=== PATIENT | female | born 1955 | race Two or more races ===

== ENCOUNTER 2021-08-03 11:03 | Outpatient (CLI) | payer OTHER, SELFPAY ==
--- NOTE | 2021-08-03 11:18 | XR_ITS ---
WS: [id number] Exam: XR hip RT 2-3V wo/w pel* [id number] Date/Time of Exam: 08/03/2021 11:28 AM Reason For Exam: PAIN IN R HIP No fracture or dislocation. Mild narrowing of the joint compartment. Normal soft tissues. XR/XR hip RT 2-3V wo/w pel* [id number] IMPRESSION: 1. Mild osteoarthritis. No fracture or dislocation.
--- NOTE | 2021-08-03 11:18 | XR_ITS ---
WS: [id number] Exam: XR lumbar spine 6V w f/e [id number] Date/Time of Exam: 08/03/2021 11:28 AM Reason For Exam: VERTEBROGENIC LOW BACK PAIN No comparisons. Compression fracture of the L1 with about 40% loss of vertebral height anteriorly. Mild posterior dis placement of about 5 mm. No other fractures. Mild degenerative anterolisthesis of L4 on L5 and L3 on L4. Facet arthropathy at all levels. Posterior osteophytes at the L to 3 disc level that might cause some spinal canal stenosis. No significant change during flexion or extension. Mild levoscoliosis. Mo derate disc degeneration at L2-3. Degenerative vacuum disc at L5-S1. XR/XR lumbar spine 6V w f/e [id number] IMPRESSION: 1. Old compression fracture of L1 with about 40% loss of vertebral height anter iorly and mild posterior displacement. 2. Mild degenerative anterolisthesis of L4 on L5 and L3 on L4. 3. Posterior osteophytes at the L2-3 disc level that might cause some spinal ca nal stenosis. 4. Facet arthropathy at all levels. Moderately advanced degenerative disc singletary es at L2-3 and L5-S1. No acute fracture. No significant change in alignment dur ing flexion or extension.
== END 2021-08-03 11:04 | disposition home or self-care (01) ==
LOC: RAD 11:08
PROVIDERS: PCP Family Medicine; Visit Provider Family Medicine
DX: M25.551 Pain in right hip (principal); M16.11 Unilateral primary osteoarthritis, right hip; M54.50 Low back pain, unspecified; M25.78 Osteophyte, vertebrae
CPT/HCPCS: 72114; 73502

== ENCOUNTER → 2021-08-21 14:04 | Outpatient (BNVA) | payer OTHER, SELFPAY | PROVIDERS: PCP Family Medicine; Referring Provider Family Medicine; Visit Provider Orthopaedic Surgery | DX: M25.561 Pain in right knee (principal) | CPT/HCPCS: 73560; 73565 ==

== ENCOUNTER 2021-08-29 09:32 | Outpatient (RCR) | payer MEDICARE, SELFPAY | END 2021-09-09 23:59 | disposition home or self-care (01) | LOC: SPT 09:32 | PROVIDERS: PCP Family Medicine; Referring Provider Orthopaedic Surgery; Visit Provider Orthopaedic Surgery | DX: Z47.89 Encounter for other orthopedic aftercare (principal) | CPT/HCPCS: 97161 ==

== ENCOUNTER 2021-09-18 13:37 | Outpatient (CLI) | payer MEDICARE, SELFPAY ==
--- NOTE | 2021-09-18 14:10 | PFTS_ITS ---
Date of Study:09/18/21 Date of Dictation: 09/24/2021 MECHANICS: Postbronchodilator forced vital capacity (FVC) is reduced. Postbronchodilator forced expiratory volume in one second (FEV1) is moderately reduced. FEV1/FVC is normal. There is no significant response to bronchodilator.. FLOW VOLUME LOOP: Normal. LUNG VOLUMES: Not measured DIFFUSING CAPACITY FOR CARBON MONOXIDE: Not measured . INTERPRETATION: The postbronchodilator spirometry showed moderate restriction.? There is no significant postbronchodilator response.? Lung volumes not measured.? Gas transfer not measured.? Clinical correlation recommended. MTDD
== END 2021-09-18 13:38 | disposition home or self-care (01) ==
LOC: RT 13:38
PROVIDERS: PCP Family Medicine; Visit Provider Family Medicine
DX: R06.09 Other forms of dyspnea (principal)
CPT/HCPCS: 94060; J7614

== ENCOUNTER → 2021-10-03 11:35 | Outpatient (BNVA) | payer MEDICARE, SELFPAY | PROVIDERS: PCP Family Medicine; Visit Provider Surgery | DX: Z86.010 Personal history of colon polyps (principal); Z80.0 Family history of malignant neoplasm of digestive organs | CPT/HCPCS: 99203 ==

== ENCOUNTER 2021-10-05 08:23 | Day surgery (SDC) | payer MEDICARE, SELFPAY ==
[2021-10-04 10:35] VITALS: BMI 34.7
--- NOTE | 2021-10-05 08:54 | P.ANESASSM_ITS ---
Pre-Anesthetic Assessment Height/Weight: Height 1.57 m Weight 86.183 kg Preop Diagnosis: History of colon polyps/family history of colon cancer Operation Date: 10/05/21 10:00 Proposed Procedures p Colonoscopy 41879,Z12.11(Not Applicable) - Zachary Cronin MD Familial anesthetic complications: none Was Beta Raúl taken within 24 hours: N/A Was Clonidine taken within 24 hours: N/A Last intake: 10/04/21 Social No alcohol and No tobacco Exam alert, oriented x 3, clear to auscultation bilaterally and regular rate & rhythm Airway Submandibular: within normal limits Cervical ROM: within normal limits (Has pain with full ROM ) Mallampati: Class II Dentition: full Comments: Comments: Front tooth capped Pulmonary Sleep Apnea CV/HEM None reported Unable to ascend flight of stairs d/t knee pain None reported Hepatic None reported GI Colon polyps Metabolic None reported Musc/skel Lower Back Pain and Osteoarthritis/DJD Neuropsych None reported Anesthetic Plan ASA status: 3 (66 year old obese female w/ hx of ROBERTO ) Anesthesia: Anesthesia Evaluation, General and MAC Other: I discussed with the patient risks, goals, and benefits of MAC and general anesthesia. We discussed spectrum of MAC anesthesia including conversion to general as well as possibility of recall of intraoperative stimuli including discomfort/pain. Patient agrees to proceed with MAC. Medications/Allergies Home Medications Medication Instructions Recorded Confirmed Last Taken Type latanoprost 0.005 % eye drops 1 drp ophthalmic (eye) DAILY 06/20/21 10/04/21 Unknown History levothyroxine 100 mcg capsule 100 mcg PO DAILY 06/20/21 10/04/21 Unknown History metformin 500 mg tablet 500 mg PO BID 06/20/21 10/04/21 Unknown History naproxen 500 mg tablet 500 mg PO DAILY PRN Pain 06/20/21 10/04/21 Unknown History Allergies Allergy/AdvReac Type Severity Reaction Status Date / Time ibuprofen [From Motrin] Allergy Mild SOB Verified 10/03/21 16:55 [facility] Anesthesia Family History Father Cancer Colon Other Diabetes Social History Smoking and tobacco status: former smoker Data Anesthesia Cardiac Studies: No Data to Display
[2021-10-05 09:02] VITALS: BP 116/67; PULSE 79; RESP 18; TEMP 36.1; O2SAT 94
[2021-10-05] MEDS: sodium chloride 0.9% 1,000 ML 30 ML IV (09:07)
--- NOTE | 2021-10-05 09:55 | W.PM.OPSUD ---
Surgery/Procedure H&P Update DATE OF PROCEDURE: October 05, 2021 DATE H&P PERFORMED: 10/03/21 H&P UPDATE INFORMATION: I have reviewed H&P completed within last 30 days, I have examined patient prior to procedure and No changes to prior documentation PREOP DIAGNOSIS: History of colon polyps/family history of colon cancer PRIMARY INDICATION FOR PROCEDURE: The same PLANNED PROCEDURE: Operation Date: 10/05/21 10:00 Proposed Procedures p Colonoscopy 61769,Z12.11(Not Applicable) - Zachary Cronin MD
[2021-10-05 10:15] VITALS: BP 110/63; PULSE 74; RESP 16; TEMP 36.1; O2SAT 97
--- NOTE | 2021-10-05 10:19 | ANE.PACU2 ---
Inpatient post-anesthesia follow up: Airway intact: Yes Vital signs: Temperature 97 F Pulse Rate 74 Respiratory Rate 16 Blood Pressure 110/63 Pulse Oximetry 97 Oxygen Delivery Me thod Room Air Oxygen Flow Rate Fraction of Inspir ed Oxygen Hydration adequate: Yes Nausea and vomiting: No Pain level: 1 Mental status: Baseline
[2021-10-05 10:43] VITALS: BP 108/70; PULSE 76; RESP 18; O2SAT 96
== END 2021-10-05 11:01 | disposition home or self-care (01) ==
PROVIDERS: PCP Family Medicine; Visit Provider Surgery
PROC: 0DJD8ZZ Inspection of Lower Intestinal Tract, Via Natural or Artificial Opening Endoscopic (ICD-10-PCS; CPT 45378; principal; 2021-10-05 10:00)
DX: Z12.11 Encounter for screening for malignant neoplasm of colon (principal); K63.5 Polyp of colon; Z80.0 Family history of malignant neoplasm of digestive organs
CPT/HCPCS: 45385; 88305; J2704; J7030

== ENCOUNTER → 2021-10-09 11:30 | Outpatient (BNVA) | payer MEDICARE, SELFPAY | PROVIDERS: PCP Family Medicine; Visit Provider Orthopaedic Surgery | DX: M25.561 Pain in right knee (principal) | CPT/HCPCS: 73560; 73565; 99212 ==

== ENCOUNTER 2021-10-11 06:00 | Outpatient (RCR) | payer MEDICARE, SELFPAY | END 2021-11-09 23:59 | disposition home or self-care (01) | LOC: SPT 06:00 | PROVIDERS: PCP Family Medicine; Referring Provider Orthopaedic Surgery; Visit Provider Orthopaedic Surgery | DX: Z47.89 Encounter for other orthopedic aftercare (principal); M24.661 Ankylosis, right knee | CPT/HCPCS: 97110 ==

== ENCOUNTER → 2021-10-22 15:06 | Outpatient (BNVA) | payer MEDICARE, SELFPAY | PROVIDERS: PCP Family Medicine; Visit Provider Surgery | DX: Z09 Encounter for follow-up examination after completed treatment for conditions other than malignant neoplasm (principal); K57.31 Diverticulosis of large intestine without perforation or abscess with bleeding | CPT/HCPCS: 99212 ==

== ENCOUNTER 2021-11-12 08:52 | Outpatient (RCR) | payer MEDICARE, SELFPAY | END 2021-12-10 23:59 | disposition home or self-care (01) | LOC: SPT 08:52 | PROVIDERS: PCP Family Medicine; Referring Provider Orthopaedic Surgery; Visit Provider Orthopaedic Surgery | DX: Z96.651 Presence of right artificial knee joint (principal) | CPT/HCPCS: 97110 ==

== ENCOUNTER 2021-12-03 10:58 | Outpatient (CLI) | payer MEDICARE, SELFPAY ==
--- NOTE | 2021-12-03 11:56 | XR_ITS ---
WS: [id number] Exam: XR chest 2V* [id number] Date/Time of Exam: 12/03/2021 11:56 AM Reason For Exam: DYSPNEA ON EXERTION No priors. The lungs are fully expanded. No infiltrates or pleural effusions are seen. There is elevation the ri ght diaphragm. Cardiomediastinal silhouette is otherwise unremarkable. Bony structures are intact. XR/XR chest 2V* [id number] IMPRESSION: 1. Elevated right diaphragm. 2. No acute pulmonary infiltrate or other significant finding.
== END 2021-12-03 10:59 | disposition home or self-care (01) ==
LOC: RAD 11:05
PROVIDERS: PCP Family Medicine; Visit Provider Family Medicine
DX: R06.09 Other forms of dyspnea (principal)
CPT/HCPCS: 71046

== ENCOUNTER 2021-12-11 06:00 | Outpatient (RCR) | payer MEDICARE, SELFPAY | END 2022-01-09 23:59 | disposition home or self-care (01) | LOC: SPT 06:00 | PROVIDERS: PCP Family Medicine; Visit Provider Orthopaedic Surgery | DX: Z96.651 Presence of right artificial knee joint (principal) | CPT/HCPCS: 97110 ==

== ENCOUNTER 2022-01-10 06:00 | Outpatient (RCR) | payer MEDICARE, SELFPAY | END 2022-02-09 23:59 | disposition home or self-care (01) | LOC: SPT 06:00 | PROVIDERS: PCP Family Medicine; Visit Provider Orthopaedic Surgery | DX: Z47.89 Encounter for other orthopedic aftercare (principal) | CPT/HCPCS: 97110 ==

== ENCOUNTER 2022-03-13 06:00 | Outpatient (RCR) | payer MEDICARE, SELFPAY | END 2022-04-09 23:59 | disposition home or self-care (01) | LOC: SPT 06:00 | PROVIDERS: PCP Family Medicine; Visit Provider Family Medicine Adult Medicine | DX: M24.561 Contracture, right knee (principal) | CPT/HCPCS: 97110; 97161; 97530 ==

== ENCOUNTER 2022-04-10 12:40 | Outpatient (RCR) | payer MEDICARE, SELFPAY | END 2022-05-10 23:59 | disposition home or self-care (01) | LOC: SPT 12:40 | PROVIDERS: PCP Family Medicine; Visit Provider Family Medicine Adult Medicine | DX: M24.561 Contracture, right knee (principal) | CPT/HCPCS: 97110; 97530 ==

== ENCOUNTER 2022-05-11 06:00 | Outpatient (RCR) | payer MEDICARE, SELFPAY | END 2022-06-09 23:59 | disposition home or self-care (01) | LOC: SPT 06:00 | PROVIDERS: PCP Family Medicine Adult Medicine; Visit Provider Family Medicine Adult Medicine | DX: M24.561 Contracture, right knee (principal) | CPT/HCPCS: 97110; 97530 ==

== ENCOUNTER → 2022-05-22 07:55 | Outpatient (BNVA) | payer MEDICARE, SELFPAY | PROVIDERS: PCP Family Medicine Adult Medicine; Visit Provider Family Medicine Adult Medicine | DX: E11.9 Type 2 diabetes mellitus without complications (principal); I10 Essential (primary) hypertension; E78.00 Pure hypercholesterolemia, unspecified | CPT/HCPCS: 80053; 80061; 83036; 84443 ==

== ENCOUNTER 2022-06-03 14:39 | Outpatient (CLI) | payer MEDICARE, SELFPAY ==
--- NOTE | 2022-06-03 15:00 | MM_ITS ---
WS: [id number] BILATERAL 3D TOMOSYNTHESIS DIGITAL SCREENING MAMMOGRAPHY WITH CAD CLINICAL INFORMATION: annual HISTORY: Screening mammogram. No current complaints. COMPARISON: 2021 TECHNIQUE: Bilateral CC and MLO views. FINDINGS: Scattered fibroglandular densities bilaterally. No suspicious focal mass, asymmetry, calcifications, or architectural distortion. No evidence of malignancy. Punctate and lucent centered calcifications. MM/[place] [id number] IMPRESSION: BI-RADS: 2-Benign FOLLOW UP: 1 Year Follow-up Recommend return to annual screening mammography.
== END 2022-06-03 14:40 | disposition home or self-care (01) ==
LOC: RAD 14:42
PROVIDERS: PCP Family Medicine Adult Medicine; Visit Provider Family Medicine Adult Medicine
DX: Z12.31 Encounter for screening mammogram for malignant neoplasm of breast (principal)
CPT/HCPCS: 77063; 77067

== ENCOUNTER → 2022-06-05 13:31 | Outpatient (BNVA) | payer MEDICARE, SELFPAY | PROVIDERS: PCP Family Medicine Adult Medicine; Visit Provider Nurse Practitioner Family | DX: M25.569 Pain in unspecified knee (principal) | CPT/HCPCS: 73560; 73565; 99213 ==

== ENCOUNTER → 2022-06-20 17:13 | Outpatient (BNVA) | payer MEDICARE, SELFPAY | PROVIDERS: PCP Family Medicine Adult Medicine; Visit Provider Nurse Practitioner Family | DX: R68.83 Chills (without fever) (principal) | CPT/HCPCS: 87077; 87086; 87184 ==

== ENCOUNTER 2022-06-20 22:59 | Inpatient (IN) | payer MEDICARE, SELFPAY ==
--- NOTE | 2022-06-20 23:03 | XRR_ITS ---
PROCEDURE INFORMATION: Exam: XR Chest Exam date and time: 06/20/2022 11:19 PM Age: 67 years old Clinical indication: Shortness of breath; Additional info: SOB TECHNIQUE: Imaging protocol: Radiologic exam of the chest. Views: 1 view. COMPARISON: CR XR chest 2V* [id number] 12/03/2021 11:59 AM FINDINGS: Lungs: There is stable prominence of the pulmonary compared with 12/03/2021. Strandy opacities are seen in the lower hemithoraces most probably representing atelectasis. There are some increased interstitial opacities present possibly representing a pulmonary fibrosis although an interstitial pneumonitis cannot be excluded. Pleural spaces: Unremarkable. No pleural effusion. No pneumothorax. Heart/Mediastinum: Unremarkable. No cardiomegaly. Bones/joints: Unremarkable. XR/XR chest 1V portable [id number] IMPRESSION: 1. Stable mild prominence of the pulmonary possibly representing lymph nodes. 2. Strandy opacities in the lower hemithoraces most probably represents atelectasis although infiltrates and pneumonia cannot be entirely excluded. 3. Increased interstitial opacities within the hemithoraces may represent pulmonary fibrosis although an interstitial pneumonitis cannot be excluded.
--- NOTE | 2022-06-20 23:03 | ECG_ITS ---
[facility] Test Date: 2022-06-20 Pat Name: Jenny Lopez Department: Room: Gender: Female [employer] Worker: : 1955 Requested By: Gio Brandt Order Number: [id number] Katerin MD: Alek Peres M.D. Measurements Intervals [place] Rate: 119 P: 4 MO: 132 QRS: -3 QRSD: 94 T: 54 QT: 428 QTc: 603 Interpretive Statements SINUS TACHYCARDIA POSSIBLE ANTERIOR MYOCARDIAL INFARCTION , PROBABLY OLD [30 ms Q WAVE IN V3/V4, OR R < 0.2 mV IN V4] No previous ECG available for comparison Electronically Signed On 06-21-2022 11:58:27 CDT by Alek Peres M.D. [id number]
[2022-06-20 23:14] VITALS: PULSE 122; RESP 20; TEMP 37.2; O2SAT 91; BMI 34.2
--- NOTE | 2022-06-20 23:30 | W.ED.SOB ---
HPI - SOB/Dyspnea General: Chief Complaint: Shortness of Breath/Dyspnea Stated Complaint: Sob, chills, vomiting Time Seen by Provider: 06/20/22 23:03 Source: patient Mode of arrival: ambulatory Limitations: no limitations History of Present Illness: HPI Narrative: 67-year-old female states over last 2 days she has not been feeling well states she has been having a fever along with chills body aches and some flank pain she is seen in urgent care today diagnosed with a kidney infection she states she tried taking antibiotics and started vomiting this evening and felt much worse had some mild dyspnea denies any cough denies any worsening proving factors rates her flank pain a 5 out of 10. Associated symptoms: Reports fever(s), nausea and vomiting; Deny abdominal pain or chest pain Review of Systems Const: Reports: fever(s), chills, body aches and change in appetite Eyes: Denies: eye discomfort ENMT: Denies: throat pain or dental pain Card: Denies: chest pain Resp: Denies: dyspnea GI: Reports: nausea and vomiting; Denies: abdominal pain or diarrhea : Reports: flank pain and dysuria Musc: Denies: neck pain or back pain Skin/Breast: Denies: rash Neuro: Denies: headache(s) PFSH ED PFSH: Medical History Acute lumbar myofascial strain Contracture of right knee Diabetes mellitus Essential hypertension Family history of colon cancer in father Glaucoma High cholesterol History of calculus of gallbladder History of colon polyps Colonoscopy on 09/18/[address] Cronin with polyps removed History of COVID-19 2019 Hypothyroidism Obesity (BMI 30-39.9) Restrictive lung disease secondary to obesity Trigger finger (acquired) Well adult health check Surgical History H/O knee surgery H/O tubal ligation History of carpal tunnel surgery History of laparoscopic cholecystectomy Family History Father Cancer Colon Other Diabetes Social History Smoking and tobacco status: former smoker Female Reproductive History: Para: 4 Spontaneous abortions: No Physical Exam Const: COMMON NORMALS: patient oriented x3 GENERAL APPEARANCE: ill appearing HENMT: COMMON NORMALS: normocephalic and atraumatic HEAD & SCALP: normocephalic and atraumatic Eye: COMMON NORMALS: conjunctivae normal CONJUNCTIVA: Yes conjunctivae normal Neck/C-Spine: COMMON NORMALS: full ROM and supple Chest: COMMONS NORMALS: normal inspection of the chest and normal palpation of entire chest wall Resp: COMMON NORMALS: normal respiratory effort, No retractions, No use of accessory muscles and clear to auscultation bilaterally AUSCULTATION: clear to auscultation bilaterally Cardio: COMMON NORMALS: regular rhythm and No murmurs present (Cardio) RATE: tachycardic RHYTHM: regular rhythm GI: COMMON NORMALS: Normal to inspection, nondistended, normoactive bowel sounds present, Soft to palpation, non-tender and no masses PALPATION: Yes Soft to palpation Extremity: COMMON NORMALS: normal to inspection and full ROM Neuro: COMMON NORMALS: patient oriented x3, moves all extremities and no focal motor deficits Psych: COMMON NORMALS: mental status grossly normal, Normal thought process present and cooperative THOUGHT PROCESS: Normal thought process present Skin: COMMON NORMALS: no rashes or lesions noted and no wounds GENERAL SKIN EXAM: no rashes or lesions noted Course Vital Signs: Vital signs: Vital Signs Temperature 99.0 F 06/20/22 23:14 Pulse Rate 107 H 06/21/22 00:24 Respiratory Rate 32 H 06/21/22 00:24 Blood Pressure 107/46 06/21/22 00:24 Pulse Oximetry 95 06/21/22 00:24 Oxygen Delivery Me thod Nasal Cannula 06/21/22 00:24 MDM - SOB/Dyspnea Medical Decision Making Patient presents here with likely infected kidney stone she does have an elevated lactate did give her the sepsis bolus her blood pressures been stable at 106/50 currently did give her IV antibiotics as well as spoke to Dr. Gill he was taken to the OR for stone removal also spoke to the hospitalist who is admitting. Medical Records I reviewed the patient's medical records. Lab Data I reviewed the patient's lab results. 06/20/22 23:32 06/20/22 23:32 Labs/Radiology: Radiology Impressions Chest X-Ray 06/20/22 23:03 IMPRESSION: 1. Stable mild prominence of the pulmonary possibly representing lymph nodes. 2. Strandy opacities in the lower hemithoraces most probably represents atelectasis although infiltrates and pneumonia cannot be entirely excluded. 3. Increased interstitial opacities within the hemithoraces may represent pulmonary fibrosis although an interstitial pneumonitis cannot be excluded. Abdomen/Pelvis CT 06/20/22 23:32 IMPRESSION: 1. Partially obstructing 9 mm calculus at the level of the right ureteropelvic junction. 2. Simple cyst on the posterior aspect right kidney measuring 1.8 cm. No further workup needed. 3. Mild diverticulosis of the sigmoid colon 4. Normal appendix 5. Small bladder diverticulum seen on the right posteriorly measuring 11 mm. COMMENTS: Consistent with the [employer]'s Incidental Findings Committee white paper (J Am David Radiol 2018): Any incidental renal lesion less than 1 cm or classified as too small to characterize, or any incidental cystic renal lesion characterized as simple-appearing, is likely benign. No follow-up imaging is recommended for these lesions per consensus recommendations based on imaging criteria. Laboratory Results WBC 3.3 10^3/uL (4.0-10.0) L 06/20/22 23:32 RBC 4.67 10^6/uL (4.1-5.3) 06/20/22 23:32 Hgb 14.0 g/dL (11.5-15.3) 06/20/22 23: Hct 43.1 % (37.0-47.0) 06/20/22 23:32 MCV 92.3 fl (81-99) 06/20/22 23: MCH 30.0 pg (28.0-34.0) 06/20/22 23: MCHC 32.5 g/dL (30.0-36.0) 06/20/22 23: RDW 12.8 % (12.1-15.1) 06/20/22 23: Plt Count 169 10^3/cmm (130-400) 06/20/22 23: MPV 9.8 fL (7.4-10.4) 06/20/22 23:32 Neut % (Auto) 76.0 % 06/20/22 23: Lymph % (Auto) 21.6 % 06/20/22 23: Pepin % (Auto) 0.9 % 06/20/22 23: Eos % (Auto) 0.6 % 06/20/22 23:32 Baso % (Auto) 0.6 % 06/20/22 23:32 Neut # (Auto) 2.54 10^3/uL (1.8-7.7) 06/20/22 23:32 Lymph # (Auto) 0.7 10^3/uL (0.8-4.8) L 06/20/22 23:32 Pepin # (Auto) 0.0 10^3/uL (0.2-0.9) L 06/20/22 23:32 Eos # (Auto) 0.0 10^3/uL (0.0-0.8) 06/20/22 23: Baso # (Auto) 0.0 10^3/uL (0.0-0.1) 06/20/22 23: Nucleated RBC % (auto) 0 % 06/20/22: Nucleated RBCs # 0.0 /100WBC 06/20/22 23: PT 14.50 SECONDS (12.1-14.9) 06/20/22 23:32 INR 1.10 (0.8-1.2) 06/20/22 23:32 Sodium 138 mmol/L (136-145) 06/20/22 23:32 Potassium 4.2 mmol/L (3.5-5.1) 06/20/22 23:32 Chloride 102 mmol/L (98-107) 06/20/22 23:32 Carbon Dioxide 20 mmol/L (22-29) L 06/20/22 23:32 Anion Gap 20.2 (5-19) H 06/20/22 23:32 BUN 20 mg/dL (8-23) 06/20/22 23:32 Creatinine 1.1 mg/dL (0.5-0.9) H 06/20/22 23:32 GFR Calculation 49.5 mL/min (90-130) L 06/20/22 23:32 Glucose 146 mg/dL (65-115) H 06/20/22 23:32 Calculated Osmolality 291 mOsm/kg (285-295) 06/20/22 23:32 Lactic Acid 5.6 mmol/L (0.5-2.2) H* 06/20/22 23:32 Calcium 10.2 mg/dL (8.5-10.5) 06/20/22 23:32 Total Bilirubin 0.8 mg/dL (0.15-1.2) 06/20/22 23:32 AST 30 U/L (0-32) 06/20/22 23:32 ALT 16 U/L (0-33) 06/20/22 23:32 Alkaline Phosphatase 132 U/L (35-105) H 06/20/22 23:32 NT-Pro-B Natriuret Pep 548 pg/mL (0-125) H 06/20/22 23:32 Total Protein 7.2 g/dL (6.6-8.7) 06/20/22 23:32 Albumin 3.7 g/dL (3.5-5.2) 06/20/22 23:32 Globulin 3.5 g/dL (1.3-4.6) 06/20/22 23:32 SARS-CoV-2 Ag (Rapid) Negative (Negative) 06/20/22 23:23 EKG Data EKG 1: I personally reviewed and interpreted this EKG as follows: EKG Interpretation Date: 06/20/22 EKG interpretation time: 23:16 Interpretation: sinus tach hr [address] or t wave abnormalities qrs 94 qtc 499 Critical Care Time Critical Care Time: Critical Care Time: Yes Total Critical Care Time: 45 Attestation: The high probability of a clinically significant, sudden or life threatening deterioration of the patient's gu system(s) required my full and direct attention, intervention and personal management. The critical care time is as shown. This time is in addition to time spent performing any reported procedures but includes the following: [x] Data and vital sign review and interpretation [x] Patient assessment, examination and intervention [x] Documentation [x] Medication orders and management Discharge Plan Discharge Patient Disposition: Admitted As Inpatient Clinical Impression: Acute cystitis, Kidney stone, Sepsis Condition: Stable Prescriptions: No Action ciprofloxacin HCl 500 mg tablet 500 mg PO Q12H 7 Days Qty: 14 0RF naproxen 500 mg tablet 500 mg PO DAILY PRN (Reason: Pain) Hold Instructions: Resume on 10/09/21. latanoprost 0.005 % drops 1 drp ophthalmic (eye) DAILY levothyroxine 100 mcg capsule 100 mcg PO DAILY Qty: 30 5RF (DME) One touch mini test strips See Rx Instructions .Route .MEDSUPPLY Qty: 100 5RF Rx Instructions: As directed metformin 500 mg tablet See Rx Instructions PO BID Qty: 60 5RF Rx Instructions: 500 mg in the AM and 1000 mg at night orally twice a day; Referrals: Madhu Felder MD [Primary Care Provider] - Coding Level of Care Code ED Emergency Preparedness Manager for [facility] Butcher
--- NOTE | 2022-06-20 23:32 | CTR_ITS ---
PROCEDURE INFORMATION: Exam: CT Abdomen And Pelvis With Contrast Exam date and time: 06/20/2022 11:56 PM Age: 67 years old Clinical indication: Abdominal pain; Generalized; Prior surgery; Surgery date: 6+ months; Surgery type: Tubal, cholecystectomy; Additional info: Abd pain TECHNIQUE: Imaging protocol: Computed tomography of the abdomen and pelvis with contrast. Radiation optimization: All CT scans at this facility use at least one of these dose optimization techniques: automated exposure control; mA and/or kV adjustment per patient size (includes targeted exams where dose is matched to clinical indication); or iterative reconstruction. Contrast material: OMNI 350; Contrast volume: 75 ml; Contrast route: INTRAVENOUS (IV); REPORTING DATA: Count of CT and Cardiac NM exams in prior 12 months: This patient has received 0 known CTs and 0 known cardiac nuclear medicine studies in the 12 months prior to the current study. COMPARISON: CR XR hip RT 2-3V wo/w pel* [id number] 08/03/2021 11:23 AM RADIATION DOSE METRICS: Total DLP (mGy-cm): 1129.53 FINDINGS: Liver: Normal. No mass. Gallbladder and bile ducts: Status post cholecystectomy. Common duct is mildly prominent measuring 12 mm is midportion tapering to normal caliber within the pancreas. Pancreas: Normal. No ductal dilation. Spleen: Normal. No splenomegaly. Adrenal glands: Normal. No mass. Kidneys and ureters: There is a 1.8 cm hypoattenuation cystic mass seen on the posterior aspect right kidney. There is a mild delayed nephrogram seen on the right. Strandy opacities are seen in the perinephric fascia on right findings possibly representing mild inflammatory changes. There is mild right hydronephrosis present. There is a partially obstructing 9 mm calculus at the level of the right ureteropelvic junction. Stomach and bowel: Diverticula present on the sigmoid colon. Appendix: The appendix is visualized and is normal in configuration. Intraperitoneal space: Unremarkable. No free air. No significant fluid collection. Vasculature: Unremarkable. No abdominal aortic aneurysm. Lymph nodes: Unremarkable. No enlarged lymph nodes. Urinary bladder: There is a small 11 mm bladder diverticulum seen on right posteriorly. Reproductive: Unremarkable as visualized. Bones/joints: Vertebral body hemangioma seen in L4 on right. Soft tissues: There is a tiny umbilical hernia containing fat. CT/CT abdomen pelvis w con* [id number] IMPRESSION: 1. Partially obstructing 9 mm calculus at the level of the right ureteropelvic junction. 2. Simple cyst on the posterior aspect right kidney measuring 1.8 cm. No further workup needed. 3. Mild diverticulosis of the sigmoid colon 4. Normal appendix 5. Small bladder diverticulum seen on the right posteriorly measuring 11 mm. COMMENTS: Consistent with the [employer]'s Incidental Findings Committee white paper (J Am David Radiol 2018): Any incidental renal lesion less than 1 cm or classified as too small to characterize, or any incidental cystic renal lesion characterized as simple-appearing, is likely benign. No follow-up imaging is recommended for these lesions per consensus recommendations based on imaging criteria.
[2022-06-20] MEDS: acetaminophen 500 mg Tablet 1000 MG PO (23:39)
[2022-06-20] MEDS: sodium chloride 0.9% 1,000 ML 999 ML IV (23:39)
[2022-06-20] MEDS: cefTRIAXone 1,000 MG in sodium chloride 0.9% (plus) 50 ML 100 MG IV (23:39)
[2022-06-20] MEDS: ondansetron 2 mg/ML SDV 2 mL 4 MG IVP (23:39)
[2022-06-20 23:44] LABS: Basophils % 0.6 %; Eosinophils % 0.6 %; Hematocrit 43.1 % (37.0-47.0); Lymphocytes # 0.7 10^3/uL (0.8-4.8); Lymphocytes % 21.6 %; Mean Corpuscular HGB Conc 32.5 g/dL (30.0-36.0); Mean Corpuscular Volume 92.3 fl (81-99); Mean Platelet Volume 9.8 fL (7.4-10.4); Monocytes % 0.9 %; Neutrophils # 2.54 10^3/uL (1.8-7.7); Nucleated Red Blood Cells % 0 %; Platelet Count 169 10^3/cmm (130-400); Red Blood Count 4.67 10^6/uL (4.1-5.3); Red Cell Distribution Width 12.8 % (12.1-15.1); White Blood Count 3.3 10^3/uL (4.0-10.0)
[2022-06-20] MEDS: iohexol 350 mg/mL 500 mL Btl (per mL) IV (23:50)
--- NOTE | 2022-06-20 23:55 | PM.CONSULT ---
Providers/Reason For Consult Consulting Physician/Specialty*: Urology/Gill Reason for Consult*: Right obstructive pyelonephritis, large proximally UPJ stone with sepsis Requesting Physician: Dr. Brandt Primary Care Provider: Madhu Felder MD History of Present Illness History of Present Illness Jenny Lopez is a 67 year old female who [facility] with obstructive pyelonephritis secondary to 9 mm right proximal ureteral stone with UTI. Septic. Symptoms included fever, chills, right flank pain, shortness of breath without nausea vomiting or diarrhea. Urinalysis showed grossly infected urine Lactate was 5.6, she was neutropenic at 3.3, creatinine was 1.1 up from a baseline of 0.31-month ago. Recommended we go to the operating room emergently for right ureteral stent placement. I reviewed the procedure in detail, indications for, the rationale for emergency approach. Risk of progression was discussed. Also discussed the possibility of inability to access the kidney from a retrograde fashion requiring transfer for interventional radiology percutaneous nephrostomy tube placement. Considered a low risk but certainly definable. Informed consent was obtained Review of Systems Const: Reports: fever(s), chills, fatigue and malaise Eyes: Denies: change in vision or eye discharge ENMT: Denies: hoarseness Card: Denies: chest pain or palpitations Resp: Reports: dyspnea; Denies: productive cough GI: Denies: abdominal pain : Reports: flank pain; Denies: dysuria or urinary frequency Musc: Denies: joint redness Skin/Breast: Denies: rash or new lesions Neuro: Denies: confusion, behavioral changes or Slurred speech present Psych: Denies: anxiety Endo: Denies: flushing Fransico/Lymph: Denies: easy bruising or easy bleeding All/Imm: Denies: urticaria Medications/Allergies Home Medications Medication Instructions Recorded Confirmed Last Taken Type latanoprost 0.005 % eye drops 1 drp ophthalmic (eye) DAILY 06/20/21 06/20/22 10/04/21 History naproxen 500 mg tablet 500 mg PO DAILY PRN Pain 06/20/21 06/20/22 09/21/21 History levothyroxine 100 mcg capsule 100 mcg PO DAILY thyroid problem 02/19/22 06/20/22 Unknown Rx #30 caps One touch mini test strips #100 ea 03/14/22 06/20/22 Unknown Rx metformin 500 mg tablet See Rx Instructions PO BID #60 tabs 05/23/22 06/20/22 Unknown Rx ciprofloxacin HCl 500 mg tablet 500 mg PO Q12H 7 days #14 tabs 06/20/22 06/20/22 Unknown Rx Allergies Allergy/AdvReac Type Severity Reaction Status Date / Time ibuprofen [From Motrin] Allergy Mild SOB Verified 06/20/22 23:17 Current Medications Generic Name Dose Route Start Last Admin Trade Name Nara PRN Reason Stop Dose Admin Sodium Chloride 1,000 mls @ 999 mls/hr 06/20/22 23:30 06/21/22 00:23 Sodium Chloride 0.9% IV 06/21/22 01:30 999 mls/hr .Q1H1M MERRITT Administration PFSH Acute PFSH: Medical History Acute lumbar myofascial strain Contracture of right knee Diabetes mellitus Essential hypertension Family history of colon cancer in father Glaucoma High cholesterol History of calculus of gallbladder History of colon polyps Colonoscopy on 09/18/[address] Cronin with polyps removed History of COVID-2019 Hypothyroidism Obesity (BMI 30-39.9) Restrictive lung disease secondary to obesity Trigger finger (acquired) Well adult health check Surgical History H/O knee surgery H/O tubal ligation History of carpal tunnel surgery History of laparoscopic cholecystectomy Family History Father Cancer Colon Other Diabetes Social History Smoking and tobacco status: former smoker Female Reproductive History: Para: 4 Spontaneous abortions: No Vitals/I&O/Wt Last Vital Signs Temp 99.0 F 06/20/22 23:14 Pulse 107 H 06/21/22 00:24 Resp 32 H 06/21/22 00:24 BP 107/46 06/21/22 00:24 Pulse Ox 95 06/21/22 00:24 O2 Del Method Nasal Cannula 06/21/22 00:24 06/20/22 06/20/22 06/21/22 14:59 22:59 06:59 Intake Total 732.6 / 732.6 Balance 732.6 / 732.6 Weight last 48 hrs Weight 175 lb Physical Exam Const: COMMON NORMALS: alert and well nourished GENERAL APPEARANCE: well kempt and well developed ORIENTATION/CONSCIOUSNESS: not confused HENMT: COMMON NORMALS: normocephalic HEAD & SCALP: normal to inspection and normocephalic Eye: COMMON NORMALS: conjunctivae normal and no scleral icterus CONJUNCTIVA: Yes conjunctivae normal Neck/C-Spine: GENERAL: Yes normal visual inspection Lymph: LYMPHATIC: No no lymphadenopathy noted and No lymphedema Chest: OTHER: Normal chest movements Resp: COMMON NORMALS: normal respiratory effort EFFORT & INSPECTION: Yes able to speak in complete sentences, No labored and No Actively coughing Cardio: COMMON NORMALS: regular rate and regular rhythm RATE: regular rate RHYTHM: regular rhythm OTHER: Tachycardic GI: OTHER: Right CVA tenderness right upper quadrant : OTHER: Bladder nondistended, normal external female genitalia No discharge. No prolapse Back/Pelvis: OTHER: Right flank pain Extremity: COMMON NORMALS: no clubbing, cyanosis or edema Neuro: COMMON NORMALS: no focal motor deficits SENSORIUM/ORIENTATION: Yes alert Psych: COMMON NORMALS: mental status grossly normal APPEARANCE: Yes grossly normal and Yes well kempt ATTITUDE: Yes calm and Yes engaged Skin: COMMON NORMALS: no rashes or lesions noted and no jaundice GENERAL SKIN EXAM: no rashes or lesions noted Data 06/20/22 23:32 06/20/22 23:32 Micro: Microbiology 06/20/22 23:32 Blood Culture - Preliminary Blood SPECIMEN COLLECTED 06/20/22 23:39 Blood Culture - Preliminary Blood SPECIMEN COLLECTED A&P Assessment and plan (1) Right ureteral calculus: (2) Obstructive pyelonephritis: (3) Sepsis: Plan To the operating room emergently for right ureteral stent placement Coding Level of Care Code Acute Code for [facility] Diagnoses Right ureteral calculus N20.1 Obstructive pyelonephritis N11.1 Sepsis A41.9
[2022-06-21] VITALS (156 sets, daily range): BP systolic 81–130; BP diastolic 46–96; PULSE 80–137; RESP 15–45; TEMP 36.6–37.7; O2SAT 83–99
[2022-06-21 00:09] LABS: Lactic Sepsis W/Reflex 5.6 mmol/L (0.5-2.2)
[2022-06-21 00:13] LABS: Alanine Aminotransferase 16 U/L (0-33); Albumin Level 3.7 g/dL (3.5-5.2); Alkaline Phosphatase 132 U/L (35-105); Anion Gap 20.2 (5-19); Aspartate Amino Transferase 30 U/L (0-32); Blood Urea Nitrogen 20 mg/dL (8-23); Calcium 10.2 mg/dL (8.5-10.5); Carbon Dioxide 20 mmol/L (22-29); Chloride 102 mmol/L (98-107); Globulin 3.5 g/dL (1.3-4.6); Glomerular Filtration Rate 49.5 mL/min (90-130); Glucose 146 mg/dL (65-115); NT Pro B Type Natriuretic Pept 548 pg/mL (0-125); Osmolality Calculated 291 mOsm/kg (285-295); Potassium 4.2 mmol/L (3.5-5.1); Sodium 138 mmol/L (136-145); Total Bilirubin 0.8 mg/dL (0.15-1.2); Total Protein 7.2 g/dL (6.6-8.7)
[2022-06-21] MEDS: sodium chloride 0.9% 1,000 ML 999 ML IV (00:23)
[2022-06-21] MEDS: sodium chloride 0.9% 500 ML IV (00:23)
[2022-06-21 00:26] LABS: SARS Covid-2 Antigen Negative (Negative)
[2022-06-21] MEDS: azithromycin 500 MG in sodium chloride 0.9% 250 ML 250 MG IV (00:55)
[2022-06-21 01:04] LABS: Bilirubin Urine Neg (Negative); Blood Urine 3+ (Negative); Glucose Urine UA Norm (Normal); Ketones Urine Negative (Negative); Nitrate Urine Negative (Negative); Protein Urine 1+ (Negative); Specific Gravity, Urine 1.005 (1.005-1.030); Urine Appearance Hazy (CLEAR); Urine Color Yellow (Yellow); Urobilinogen Urine 1 mg/dL (Negative); pH Urine 7 (5-7)
[2022-06-21 01:05] LABS: Add Urine Microscopic? YES; Bacteria Urine 2+ /hpf; Leukocyte Esterase Urine 2+ (Negative); Squamous Epithelial Cell Urine 0-4 /hpf (0-5)
[2022-06-21 01:06] LABS: Add Urine Culture? Yes
[2022-06-21 01:29] LABS: Reflex Lactate Order REFLEX LACTIC ORDERD
--- NOTE | 2022-06-21 01:43 | PC.NURSE ---
Patient sent to surgery, bilateral IVs, in a gown. Transported via stretcher.
--- NOTE | 2022-06-21 01:43 | PM.OP ---
Operative Report Date of procedure: June 21, 2022 Pre-op diagnosis: Right proximal ureteral stone with obstructive pyelonephritis/sepsis Post-op diagnosis: Right proximal ureteral stone with obstructive pyelonephritis/sepsis Severe, Diffuse, chronic cystitis cystica Procedure done: Cystoscopy with right ureteral stent placement Implants: Renal stent Specimens removed/disposition: None Pathology: None Surgeon: Jairo Estimated blood loss: None Complications: None Findings: Anesthesia: General Condition: Stable Disposition: PACU Intraoperative findings: Stone in the expected position per CT scan Brief History: Jenny is a very pleasant 67-year-old white female who I evaluated tonight for obstructive pyelonephritis with sepsis secondary to a large (9 mm) obstructing proximal ureteral stone in the face of UTI. Lactate was 5.6. Urine was infected. She was neutropenic. Blood pressure was stable but high risk for progression of septic complications and was recommended she go emergently to the operating room for a cystoscopy and right ureteral stent placement. see H&P. Procedure: After emergent evaluation examination and obtaining of informed consent she was taken to the operating suite on 06/21/2022 where general anesthesia was administered without difficulty after appropriate timeout was performed, SCDs confirmed to be functioning, preoperative antibiotics administered, beta-aris protocol confirmed. Prepped and draped in usual sterile fashion in dorsolithotomy position pain careful attention to avoiding pressure points. 21 Bermudian cystoscope with 30 degree lens was introduced into the urethral meatus and advanced to the bladder without difficulty. Bladder was systematically examined. She had severe chronic cystitis cystica diffusely throughout the bladder. Flexible tip guidewire was advanced up the right ureter bypassing the stone which was easily identified on fluoroscopy. An 8.5 Bermudian by 24 cm double-pigtail stent was advanced over the guidewire through the cystoscope into appropriate position as confirmed via fluoroscopy and cystoscopy. Renal pelvis was visualized on fluoroscopy on the IV contrast administered at time of CT scan. Stent was confirmed to be draining purulent material Bladder was drained with a Woody catheter. She tolerated procedure well without complications awakened in the operating room and returned to ICU in stable condition. Plans: 1. Maintain stent for at least a couple weeks and consider endoscopy or ESWL for definitive treatment 2. Will require more prolonged course of antibiotics for chronic cystitis cystica after completion of treatment of the stone
--- NOTE | 2022-06-21 01:47 | P.ANESASSM_ITS ---
Pre-Anesthetic Assessment Height/Weight: Height 1.52 m Weight 79.379 kg Temp Pulse Resp BP Pulse Ox O2 Del Method 99.0 F 107 H 32 H 107/46 95 Nasal Cannula 06/20/22 23:14 06/21/22 00:24 06/21/22 00:24 06/21/22 00:24 06/21/22 00:24 06/21/22 00:24 Operation Date: 06/21/22 01:45 Proposed Procedures p Cystoscopy(Not Applicable) - Wei Gill MD s Retrograde Pyelogram(Not Applicable) - Wei Gill MD s Ureteral Stent Placement(Not Applicable) - Wei Gill MD s Laser Lithotripsy(Not Applicable) - Wei Gill MD Familial anesthetic complications: none Was Beta Raúl taken within 24 hours: N/A Was Clonidine taken within 24 hours: N/A Social No alcohol and No tobacco Exam alert, oriented x 3, clear to auscultation bilaterally and regular rate & rhythm Airway Submandibular: within normal limits Cervical ROM: within normal limits Mallampati: Class III Dentition: caps and full Pulmonary Restrictive lung dz CV/HEM Hypertension Obstructive pyelo with sepsis Metabolic Diabetes Mellitus, Hyperlipidemia, Morbid Obesity and Thyroid Disease Anesthetic Plan ASA status: 3 Anesthesia: General (Mod RSI) Medications/Allergies Home Medications Medication Instructions Recorded Confirmed Last Taken Type latanoprost 0.005 % eye drops 1 drp ophthalmic (eye) DAILY 06/20/21 06/20/22 10/04/21 History naproxen 500 mg tablet 500 mg PO DAILY PRN Pain 06/20/21 06/20/22 09/21/21 History levothyroxine 100 mcg capsule 100 mcg PO DAILY thyroid problem 02/19/22 06/20/22 Unknown Rx #30 caps One touch mini test strips #100 ea 03/14/22 06/20/22 Unknown Rx metformin 500 mg tablet See Rx Instructions PO BID #60 tabs 05/23/22 06/20/22 Unknown Rx ciprofloxacin HCl 500 mg tablet 500 mg PO Q12H 7 days #14 tabs 06/20/22 06/20/22 Unknown Rx Allergies Allergy/AdvReac Type Severity Reaction Status Date / Time ibuprofen [From Motrin] Allergy Mild SOB Verified 06/20/22 23:17 PFS Anesthesia Medical History Acute lumbar myofascial strain Contracture of right knee Diabetes mellitus Essential hypertension Family history of colon cancer in father Glaucoma High cholesterol History of calculus of gallbladder History of colon polyps Colonoscopy on 09/18/[address] Cronin with polyps removed History of COVID-2019 Hypothyroidism Obesity (BMI 30-39.9) Restrictive lung disease secondary to obesity Trigger finger (acquired) Well adult health check Surgical History H/O knee surgery H/O tubal ligation History of carpal tunnel surgery History of laparoscopic cholecystectomy Family History Father Cancer Colon Other Diabetes Social History Smoking and tobacco status: former smoker Female Reproductive History Para: 4 Spontaneous abortions: No Data Anesthesia 06/20/22 23:32 06/20/22 23:32 Short CBC 06/20/22 Range/Units 23:32 WBC 3.3 L (4.0-10.0) 10^3/uL Hgb 14.0 (11.5-15.3) g/dL Hct 43.1 (37.0-47.0) % MCV 92.3 (81-99) fl Plt Count 169 (130-400) 10^3/cmm Neut % (Auto) 76.0 % Neut # (Auto) 2.54 (1.8-7.7) 10^3/uL BMP 06/20/22 23:32 Sodium 138 Potassium 4.2 Chloride 102 Carbon Dioxide 20 L BUN 20 Creatinine 1.1 H Glucose 146 H Calcium 10.2 Cardiac Enzymes 06/20/22 Range/Units 23:32 NT-Pro-B Natriuret Pep 548 H (0-125) pg/mL Liver Function 06/20/22 Range/Units 23:32 Total Bilirubin 0.8 (0.15-1.2) mg/dL AST 30 (0-32) U/L ALT 16 (0-33) U/L Alkaline Phosphatase 132 H (35-105) U/L Albumin 3.7 (3.5-5.2) g/dL Urine 06/21/22 Range/Units 00:53 Urine Color Yellow (Yellow) Urine Appearance Hazy A (CLEAR) Urine pH 7 (5-7) Ur Specific [place] 1.005 (1.005-1.030) Urine Protein 1+ H (Negative) Urine Glucose (UA) Norm (Normal) Urine Ketones Negative (Negative) Urine Nitrate Negative (Negative) Urine Bilirubin Neg (Negative) Ur Leukocyte Esterase 2+ H (Negative) Urine RBC 10-15 H (0-2) /hpf Urine WBC 10-15 H (0-5) /hpf COVID Results 06/20/22 23:23 SARS-CoV-2 Ag (Rapid) Negative Coags 06/20/22 23:32 PT 14.50 INR 1.10 Microbiology 06/20/22 23:32 Blood Culture - Preliminary Blood SPECIMEN COLLECTED 06/20/22 23:39 Blood Culture - Preliminary Blood SPECIMEN COLLECTED Cardiac Studies: No Data to Display
--- NOTE | 2022-06-21 02:24 | P.HP_ITS ---
Providers/Chief Complaint Primary Care Provider: Madhu Felder MD Chief Complaint: Sob, chills, vomiting History of Present Illness Jenny Lopez is a 67 year old female with past medical history of controlled diabetes mellitus on metformin, hypothyroidism, glaucoma, knee replacement, hypertension, dyslipidemia in the past presented to the hospital today for complaint of back pain. She states that she has been having chills a nd went to see a doctor at possibly primary care urgent care and a urine sample was obtained which indicated a UTI. She was placed on an antibiotic ciprofloxacin every 12 hours and sent home. She states around 10 PM when she went to bed she started shivering. She felt she was feverish however did not have a recorded temperature on thermometer. She states she is has a history of UTI from prior and gets recurrent UTIs but they always get taking care of with a antibiotic. She states on the way to the hospital she felt nauseous. She has been having constant right flank pain. At this time denies nausea vomiting diarrhea, chest pain, shortness of breath. Does report right flank pain. ED course: 107/46, 32, 107, 99, saturating 95% on room air. Placed on nasal cannula 2 L thereafter. Lactic acid 5.6, hemoglobin 14, WBC 3.3, platelet 169, sodium 138, potassium 4.2, creatinine 1.1, AST 30, ALT 16, BNP 548, COVID- negative. Patient given 500 cc normal saline bolus. Ceftriaxone azithromycin x1 given, Tylenol given 1 g. Stat urinalysis ordered, blood cultures ordered. Dr. Gill consulted. Patient to be going to the OR for stent placement. CT abdomen pelvis showed partially obstructing 9 mm calculus at the level of right ureteropelvic junction. Simple cyst on posterior aspect right kidney measuring 1.8 cm no further work-up needed. Small bladder diverticulum seen on the right posteriorly measuring 11 mm. Mild right hydronephrosis present. Medications/Allergies Home Medications Medication Instructions Recorded Confirmed Last Taken Type latanoprost 0.005 % eye drops 1 drp ophthalmic (eye) DAILY 06/20/21 06/20/22 10/04/21 History naproxen 500 mg tablet 500 mg PO DAILY PRN Pain 06/20/21 06/20/22 09/21/21 History levothyroxine 100 mcg capsule 100 mcg PO DAILY thyroid problem 02/19/22 06/20/22 Unknown Rx #30 caps One touch mini test strips #100 ea 03/14/22 06/20/22 Unknown Rx metformin 500 mg tablet See Rx Instructions PO BID #60 tabs 05/23/22 06/20/22 Unknown Rx ciprofloxacin HCl 500 mg tablet 500 mg PO Q12H 7 days #14 tabs 06/20/22 06/20/22 Unknown Rx Allergies Allergy/AdvReac Type Severity Reaction Status Date / Time ibuprofen [From Motrin] Allergy Mild SOB Verified 06/20/22 23:17 PFSH Acute PFSH: Medical History Acute lumbar myofascial strain Contracture of right knee Diabetes mellitus Essential hypertension Family history of colon cancer in father Glaucoma High cholesterol History of calculus of gallbladder History of colon polyps Colonoscopy on 09/18/[address] Cronin with polyps removed History of COVID-2019 Hypothyroidism Obesity (BMI 30-39.9) Restrictive lung disease secondary to obesity Trigger finger (acquired) Well adult health check Surgical History H/O knee surgery H/O tubal ligation History of carpal tunnel surgery History of laparoscopic cholecystectomy Family History Father Cancer Colon Other Diabetes Social History Smoking and tobacco status: former smoker Female Reproductive History: Para: 4 Spontaneous abortions: No Vitals/I&O/Wt Last Vital Signs Temp 99.8 F H 06/21/22 02:02 Pulse 110 H 06/21/22 02:02 Resp 16 06/21/22 02:02 BP 101/59 06/21/22 02:02 Pulse Ox 95 06/21/22 02:02 O2 Del Method Nasal Cannula 06/21/22 02:02 O2 Flow Rate 3 06/21/22 02:02 06/20/22 06/20/22 06/21/22 14:59 22:59 06:59 Intake Total 732.6 / 732.6 Balance 732.6 / 732.6 Weight last 48 hrs Weight 79.379 kg Physical Exam Narrative: General: Alert oriented x3, patient seen sitting up in bed appearing comfortable at this time. States there is right-sided flank pain especially on palpation. HEENT: Normocephalic, atraumatic, EOMI, breathing 2 L nasal cannula. Cardio: Regular rate rhythm, normal S1-S2 Respiratory: Good bilateral air entry, no wheezes no rhonchi appreciated GI: Abdomen soft, tender to palpation right lower quadrant, right CVA tenderness positive, bowel sounds + Behavior: Appropriate and cooperative Extremities: Trace edema bilateral lower extremities. Data 06/20/22 23:32 06/20/22 23:32 Micro: Microbiology 06/20/22 23:32 Blood Culture - Preliminary Blood SPECIMEN COLLECTED 06/20/22 23:39 Blood Culture - Preliminary Blood SPECIMEN COLLECTED A&P Assessment and plan (1) Diabetes mellitus: (2) High cholesterol: (3) Essential hypertension: (4) Glaucoma: (5) Hypothyroidism: (6) Obesity (BMI 30-39.9): (7) Acute cystitis: (8) Kidney stone: (9) Sepsis: (10) Right ureteral calculus: Plan #Partially obstructing urolithiasis at right ureteropelvic junction #Right hydronephrosis #Sepsis secondary to acute UTI, not in shock #Hypothyroidism #Hypertension #Diabetes mellitus #Glaucoma #Obesity ? Patient is not on insulin. Takes metformin at home. We will hold metformin at this time ? Check urine culture. UA positive at clinic for nitrates and leukocyte esterase. UA pending here at the hospital. ? Check blood cultures ? Continue ceftriaxone 1 g daily ? Recheck lactic acid. Patient has received fluids in the ER. ? Placed on normal saline 150 cc/h ? Continue Woody catheter ? Urology consulted stat. Dr. Gill to take patient to the OR for stent placement shortly ? Revised cardiac risk index: 0 points. Patient is class I risk 3.9% 30-day risk of VA or cardiac arrest. She is able to do 4 METS at baseline. EKG did not show any acute ischemic changes ? Patient to be transferred to ICU after procedure for closer monitoring. ? N.p.o. stat ? Continue levothyroxine, latanoprost eyedrops Full code SCDs, heparin SQ twice daily for DVT prophylaxis after clearance from urology. Attestations Medical Necessity Statement*: Will cross greater than 2 midnight stay for management of acute UTI, sepsis, obstructive urolithiasis Coding Level of Care Code G0425 (30 min) TH Encounter Time (min): 40 Patient seen via Telehealth in the acute care setting (hospital or ED location) by agreement and consent of patient or patient logistics service representative. Telehealth technology used during the visit includes video and audio. This patient encounter is appropriate and reasonable under the circumstances given the patient?s particular presentation at this time. The patient has been advised of the potential risks and limitations of this mode of treatment (including but not limited to the absence of in-person examination at this time) and has agreed to be treated by an off-site physician for this visit. If deemed clinically necessary from this telehealth visit, or if condition or consent for telehealth visit changes, an in-person visit will be arranged. For this encounter, total time for the origination of telehealth care on this date is as shown. Diagnoses Diabetes mellitus E11.9 High cholesterol E78.00 Essential hypertension I10 Glaucoma H40.9 Hypothyroidism E03.9 Obesity (BMI 30-39.9) E66.9 Acute cystitis N30.00 Kidney stone N20.0 Sepsis A41.9 Right ureteral calculus N20.1
[2022-06-21] MEDS: sodium chloride 0.9% 1,000 ML 150 ML IV ×4 (03:53→23:09)
[2022-06-21] MEDS: piperacillin-tazobactam 3.375 GM in sodium chloride 0.9% (plus) 50 ML IV ×3 (03:54→19:47)
[2022-06-21 03:55] LABS: Lactic Acid level (Lactate) 3.2 mmol/L (0.5-2.2)
--- NOTE | 2022-06-21 07:13 | ANE.PACU2 ---
Inpatient post-anesthesia follow up: Airway intact: Yes Vital signs: Temperature 99.8 F Pulse Rate 108 Respiratory Rate 19 Blood Pressure 90/63 Pulse Oximetry 98 Oxygen Delivery Me thod Nasal Cannula Oxygen Flow Rate 3 Fraction of Inspir ed Oxygen Hydration adequate: Yes Nausea and vomiting: No Pain level: 2 Mental status: Baseline
--- NOTE | 2022-06-21 08:07 | PC.PHAR ---
pt states she takes care of her own medications-rx written 05/23/22 for metformin 500mg qam and 1000mg hs rx filled 05/07/22 500mg bid pt states takes 500mg bid
[2022-06-21] MEDS: levothyroxine 100 mcg Tablet PO (09:42)
[2022-06-21] MEDS: latanoprost 0.005% Op Soln 2.5 mL Btl 1 DROP EYE-BOTH (09:43)
--- NOTE | 2022-06-21 16:01 | PM.PN ---
Subjective Subjective: Patient was seen and examined this morning, she denied any abdominal pain nausea vomiting back pain. She was afebrile overnight, her other vitals and labs have been reviewed. Medications: Medication Review Details: Generic Name Dose Route Start Last Admin Trade Name Nara PRN Reason Stop Dose Admin Sodium Chloride 1,000 mls @ 150 m ls/hr 06/21/22 02:45 06/21/22 09:43 Sodium Chloride 0.9% IV 150 mls/hr .[id number] MERRITT Administration Piperacillin Sod/T azobactam 50 mls @ 12.5 mls /hr 06/21/22 03:30 06/21/22 15:23 Sod 3.375 gm/ So dium Chloride IV Infused Q8H MERRITT Infusion Latanoprost 1 drop 06/21/22 09:00 06/21/22 09:43 Latanoprost 0.00 5% Op Soln 2.5 Ml Btl EYE-BOTH 1 drop DAILY MERRITT Administration Levothyroxine Sodi um 100 mcg 06/21/22 09:00 06/21/22 09:42 Levothyroxine 10 0 Mcg Tablet PO 100 mcg DAILY MERRITT Administration Vitals/I&O/Wt Last Vital Signs Temp 97.8 F 06/21/22 07:20 Pulse 91 06/21/22 15:09 Resp 23 H 06/21/22 12:50 BP 96/60 06/21/22 12:50 Pulse Ox 97 06/21/22 12:50 O2 Del Method Nasal Cannula 06/21/22 12:50 O2 Flow Rate 4 06/21/22 12:50 06/21/22 06/21/22 06/21/22 06:59 14:59 22:59 Intake Total 2532.6 / 2532.6 925 / 925 50 / 975 Output Total 475 / 475 1000 / 1000 Balance 2057.6 / 2057.6 925 / 925 -950 / -25 Weight last 48 hrs Weight 99.337 kg Weight 79.379 kg Physical Exam Const: COMMON NORMALS: patient oriented x3 HENMT: COMMON NORMALS: normocephalic and atraumatic HEAD & SCALP: normocephalic and atraumatic Resp: COMMON NORMALS: clear to auscultation bilaterally EFFORT & INSPECTION: Yes symmetric chest movement AUSCULTATION: clear to auscultation bilaterally Cardio: COMMON NORMALS: regular rate, regular rhythm, S1 normal heart sound present, S2 normal heart sound present, No gallops present (Cardio), No murmurs present (Cardio), No rub (Cardio) and Peripheral pulses 2+ throughout RATE: regular rate RHYTHM: regular rhythm HEART SOUNDS: S1 normal heart sound present and S2 normal heart sound present PERIPHERAL PULSES: Peripheral pulses 2+ throughout GI: COMMON NORMALS: Normal to inspection, nondistended, normoactive bowel sounds present, Soft to palpation, non-tender, No hepatosplenomegaly present and no masses AUSCULTATION: Yes normoactive bowel sounds PALPATION: Yes Soft to palpation and Yes No hepatosplenomegaly present RECTAL EXAM: deferred Extremity: COMMON NORMALS: no clubbing, cyanosis or edema and no pedal edema Neuro: COMMON NORMALS: patient oriented x3 Urinary Catheter Management: Woody: Cath Placed During This Visit: yes Reason for Continuing Indwelling Catheter: Accurate Measurement of Urinary Output in Critically Ill Patients Urinary Catheter Date of Insertion: 06/21/22 Urinary Catheter Time of Insertion: 02:26 Data 06/20/22 23:32 06/20/22 23:32 Micro: Microbiology 06/20/22 23:32 Blood Culture - Preliminary Blood SPECIMEN COLLECTED 06/20/22 23:39 Blood Culture - Preliminary Blood SPECIMEN COLLECTED A&P Assessment and plan (1) Diabetes mellitus: (2) High cholesterol: (3) Essential hypertension: (4) Glaucoma: (5) Hypothyroidism: (6) Obesity (BMI 30-39.9): (7) Acute cystitis: (8) Kidney stone: (9) Sepsis: (10) Right ureteral calculus: Plan 67-year-old female with past medical history of diabetes hypothyroidism glaucoma, hypertension dyslipidemia, came in yesterday with chief complaint of right-sided back pain associated with chills started yesterday. She was evaluated at urgent care, and sent home on ciprofloxacin for UTI, since reaching home she progressively experienced worsening of symptoms and hence came to the ER. Currently she is being managed for Assessment: Sepsis secondary to UTI: As well as right-sided obstructive pyelonephritis secondary to partially obstructing right UPJ stone. CT abdomen pelvis w con: Partially obstructing 9 mm calculus at the level of the right ureteropelvic junction. Lactic acid 5.6 repeat lactic acid 3.2 Urinalysis dirty Urine culture Blood culture S/p: Cystoscopy with right ureteral stent placement: Urology on board Currently she is on Zosyn We will plan to discharge on prolonged p.o. antibiotic course in the setting of complicated UTI. History of hypothyroidism: Continue levothyroxine History of diabetes: SSI, monitor fingerstick glucose History of hypertension: Currently normotensive CODE STATUS: Full code DVT prophylaxis on Lovenox Attestations Medical Necessity Statement*: Patient is in hospital for IV antibiotic Coding Level of Care Code Acute Code for Chg Fwd Diagnoses Diabetes mellitus E11.9 High cholesterol E78.00 Essential hypertension I10 Glaucoma H40.9 Hypothyroidism E03.9 Obesity (BMI 30-39.9) E66.9 Acute cystitis N30.00 Kidney stone N20.0 Sepsis A41.9 Right ureteral calculus N20.1
[2022-06-21] MEDS: enoxaparin 40 mg/0.4 mL Syringe SUBCUT (17:53)
[2022-06-22] VITALS (25 sets, daily range): BP systolic 98–147; BP diastolic 57–87; PULSE 73–95; RESP 16–33; TEMP 36.7–36.8; O2SAT 92–99
[2022-06-22] MEDS: piperacillin-tazobactam 3.375 GM in sodium chloride 0.9% (plus) 50 ML IV ×3 (02:40→20:07)
[2022-06-22 04:32] LABS: Hematocrit 36.9 % (37.0-47.0); Hemoglobin 11.4 g/dL (11.5-15.3); Mean Corpuscular HGB Conc 30.9 g/dL (30.0-36.0); Mean Corpuscular Hemoglobin 30.4 pg (28.0-34.0); Mean Corpuscular Volume 98.4 fl (81-99); Mean Platelet Volume 10.6 fL (7.4-10.4); Platelet Count 142 10^3/cmm (130-400); Red Blood Count 3.75 10^6/uL (4.1-5.3); Red Cell Distribution Width 13.4 % (12.1-15.1)
[2022-06-22 04:38] LABS: White Blood Count 34.6 10^3/uL (4.0-10.0)
[2022-06-22 04:54] LABS: Alanine Aminotransferase 32 U/L (0-33); Albumin Level 2.8 g/dL (3.5-5.2); Alkaline Phosphatase 88 U/L (35-105); Aspartate Amino Transferase 47 U/L (0-32); Blood Urea Nitrogen 14 mg/dL (8-23); Calcium 8.7 mg/dL (8.5-10.5); Carbon Dioxide 20 mmol/L (22-29); Chloride 113 mmol/L (98-107); Glomerular Filtration Rate 159.2 mL/min (90-130); Glucose 126 mg/dL (65-115); Magnesium 1.6 mg/dL (1.7-2.3); Osmolality Calculated 298 mOsm/kg (285-295); Sodium 143 mmol/L (136-145); Total Bilirubin 0.5 mg/dL (0.15-1.2); Total Protein 5.8 g/dL (6.6-8.7)
[2022-06-22 05:13] LABS: Total Cells Counted 100 (0-100)
[2022-06-22 05:14] LABS: Absolute Segmented Neutrophil 25.6 10/cmm (1.6-7.1); Band Neutrophils Absolute 3.5 10^3/cmm (0.0-1.2); Eosinophils 0 %; Lymphocytes 7 %; Lymphocytes Absolute 2.4 10^3/cmm (1.2-3.4); Monocytes Absolute 1.7 10^3/cmm (0.1-0.6); Segmented Neutrophils 74 %
[2022-06-22] MEDS: sodium chloride 0.9% 1,000 ML 150 ML IV (05:14)
[2022-06-22 05:17] LABS: Absolute Neutrophil 29.1 10^3/cmm (1.4-6.5); Platelet Estimate Normal (Normal); Toxic Granulation 1+; Toxic Vacuolation 1+
[2022-06-22 05:19] LABS: Anisocytosis 1+; Macrocytosis 1+; Smudge Cells Trace; Spherocytes 1+
[2022-06-22] MEDS: acetaminophen 325 mg Tablet 650 MG PO ×2 (07:21→16:54)
--- NOTE | 2022-06-22 09:40 | P.PN_ITS ---
Subjective Subjective: Urology follow-up: Postop day #1 emergency right ureteral stent placed Hemodynamically she has been stable. Has had tachypnea but no hypotension. White count is significantly elevated today at 34,000 She states that she is feeling better. Has had some neck pain from a chronic neck injury. Denies significant right flank pain. No abdominal pain. I reviewed with her the phases of treatment anticipated: * Acute phase involving emergency stent placement and IV antibiotics for treatment of sepsis with hospital stay until ready for further management at home * Intermediate phase: Attempt at definitive therapy of the stone via endoscopy or ESWL likely in 2 to 3 weeks. * Chronic phase: Prolonged antibiotic course for CHRONIC CYSTITIS (CYSTICA) Reviewed with her also that the hospitalist will be primarily responsible for the acute phase that we are in now. The decision-making process is primarily contingent upon them. We will follow. Vitals/I&O/Wt Last Vital Signs Temp 98.2 F 06/21/22 18:00 Pulse 76 06/22/22 08:00 Resp 33 H 06/22/22 08:00 BP 112/68 06/22/22 07:00 Pulse Ox 94 06/22/22 08:00 O2 Del Method Nasal Cannula 06/22/22 08:00 O2 Flow Rate 4 06/22/22 08:00 06/21/22 06/22/22 06/22/22 22:59 06:59 14:59 Intake Total 1050 / 1975 2262.5 / 4237.5 120 / 120 Output Total 1400 / 1400 950 / 2350 Balance -350 / 575 1312.5 / 1887.5 120 / 120 Weight last 48 hrs Weight 219 lb Weight 175 lb Physical Exam Const: COMMON NORMALS: alert GENERAL APPEARANCE: well developed OR IENTATION/CONSCIOUSNESS: not confused Eye: COMMON NORMALS: no scleral icterus Lymph: LYMPHATIC: No lymphedema Chest: OTHER: Normal chest movements Resp: COMMON NORMALS: normal respiratory effort EFFORT & INSPECTION: Yes able to speak in complete sentences, No labored and No Actively coughing Cardio: COMMON NORMALS: regular rhythm RHYTHM: regular rhythm GI: OTHER: Abdomen is soft, nondistended, nontender : OTHER: Catheter functioning Neuro: COMMON NORMALS: no focal motor deficits SENSORIUM/ORIENTATION: Yes alert Psych: COMMON NORMALS: mental status grossly normal APPEARANCE: Yes grossly normal ATTITUDE: Yes calm and Yes engaged Skin: COMMON NORMALS: no jaundice Urinary Catheter Management: Woody: Cath Placed During This Visit: yes Reason for Continuing Indwelling Catheter: Accurate Measurement of Urinary Output in Critically Ill Patients Urinary Catheter Date of Insertion: 06/21/22 Urinary Catheter Time of Insertion: 02:26 Data 06/22/22 04:05 06/22/22 04:05 Micro: Microbiology 06/20/22 23:32 Blood Culture - Preliminary Blood NEGATIVE TO DATE 06/20/22 23:39 Blood Culture - Preliminary Blood NEGATIVE TO DATE A&P Assessment and plan (1) Right ureteral calculus: Bypassed with right ureteral stent emergently (2) Obstructive pyelonephritis: No longer obstructed. Creatinine is normal (3) Sepsis: Huge spike in white count Clinically though no hemodynamic instability Attestations Medical Necessity Statement*: See attending Coding Level of Care Code Acute Code for [facility] Diagnoses Right ureteral calculus N20.1 Obstructive pyelonephritis N11.1 Sepsis A41.9
[2022-06-22] MEDS: magnesium sulfate premix 2 GM/50 ML PIGGYBACK IV (09:43)
[2022-06-22] MEDS: levothyroxine 100 mcg Tablet PO (09:43)
[2022-06-22] MEDS: sodium chloride 0.9% 1,000 ML 100 ML IV (11:43)
[2022-06-22] MEDS: ipratropium-albuterol 3 mL Neb INHALATION ×2 (14:15→19:43)
--- NOTE | 2022-06-22 16:25 | P.PN_ITS ---
Subjective Subjective: Patient was seen and examined this morning she has remained afebrile overnight, maintaining a decent MAP, white blood cell count has jumped significantly, cultures have remained negative so far. Patient was complaining of shortness of breath, IV fluids has been discontinued. Medications: Medication Review Details: Generic Name Dose Route Start Last Admin Trade Name Angelq PRN Reason Stop Dose Admin Acetaminophen 650 mg 06/21/22 02:38 06/22/22 07:21 Acetaminophen 32 5 Mg Tablet PO 650 mg Q6H PRN Administration Mild/Mod Pain Or Temp >/= 101 Albuterol/Ipratrop ium 3 ml 06/22/22 14:00 06/22/22 14:15 Ipratropium-Albu terol 3 Ml Neb INHALATION 3 ml Q6H.RESP MERRITT Administration Enoxaparin Sodium 40 mg 06/21/22 17:45 06/21/22 17:53 Enoxaparin 40 Mg /0.4 Ml Syringe SUBCUT 40 mg Q24H MERRITT Administration Piperacillin Sod/T azobactam 50 mls @ 12.5 mls /hr 06/21/22 03:30 06/22/22 11:43 Sod 3.375 gm/ So dium Chloride IV 12.5 mls/hr Q8H MERRITT Administration Latanoprost 1 drop 06/21/22 09:00 06/22/22 09:48 Latanoprost 0.00 5% Op Soln 2.5 Ml Btl EYE-BOTH Not Given DAILY MERRITT Levothyroxine Sodi um 100 mcg 06/21/22 09:00 06/22/22 09:43 Levothyroxine 10 0 Mcg Tablet PO 100 mcg DAILY MERRITT Administration Vitals/I&O/Wt Last Vital Signs Temp 98.2 F 06/21/22 18:00 Pulse 83 06/22/22 16:00 Resp 26 H 06/22/22 16:00 BP 113/66 06/22/22 16:00 Pulse Ox 98 06/22/22 16:00 O2 Del Method Nasal Cannula 06/22/22 16:00 O2 Flow Rate 4 06/22/22 16:00 06/22/22 06/22/22 06/22/22 06:59 14:59 22:59 Intake Total 2262.5 / 4237.5 410 / 410 Output Total 950 / 2350 Balance 1312.5 / 1887.5 410 / 410 Weight last 48 hrs Weight 99.337 kg Weight 79.379 kg Physical Exam Const: COMMON NORMALS: patient oriented x3 HENMT: COMMON NORMALS: normocephalic and atraumatic HEAD & SCALP: normocephalic and atraumatic Resp: OTHER: Bilateral crackles present in both the lung harris. Cardio: COMMON NORMALS: regular rate, regular rhythm, S1 normal heart sound present, S2 normal heart sound present, No gallops present (Cardio), No murmurs present (Cardio), No rub (Cardio) and Peripheral pulses 2+ throughout RATE: regular rate RHYTHM: regular rhythm HEART SOUNDS: S1 normal heart sound present and S2 normal heart sound present PERIPHERAL PULSES: Peripheral pulses 2+ throughout GI: COMMON NORMALS: Normal to inspection, nondistended, normoactive bowel sounds present, Soft to palpation, non-tender, No hepatosplenomegaly present and no masses AUSCULTATION: Yes normoactive bowel sounds PALPATION: Yes Soft to palpation and Yes No hepatosplenomegaly present RECTAL EXAM: deferred Extremity: COMMON NORMALS: no clubbing, cyanosis or edema and no pedal edema Neuro: COMMON NORMALS: patient oriented x3 Urinary Catheter Management: Woody: Cath Placed During This Visit: yes Reason for Continuing Indwelling Catheter: Accurate Measurement of Urinary Output in Critically Ill Patients Urinary Catheter Date of Insertion: 06/21/22 Urinary Catheter Time of Insertion: 02:26 Data 06/22/22 04:05 06/22/22 04:05 Micro: Microbiology 06/21/22 00:53 Urine Culture - Preliminary Urine,Clean Catch 06/20/22 23:32 Blood Culture - Preliminary Blood NEGATIVE TO DATE 06/20/22 23:39 Blood Culture - Preliminary Blood NEGATIVE TO DATE A&P Assessment and plan (1) Diabetes mellitus: (2) High cholesterol: (3) Essential hypertension: (4) Glaucoma: (5) Hypothyroidism: (6) Obesity (BMI 30-39.9): (7) Acute cystitis: (8) Kidney stone: (9) Sepsis: (10) Right ureteral calculus: Plan 67-year-old female with past medical history of diabetes hypothyroidism glaucoma , hypertension dyslipidemia, came in yesterday with chief complaint of right- sided back pain associated with chills started yesterday. She was evaluated at urgent care, and sent home on ciprofloxacin for UTI, since reaching home she progressively experienced worsening of symptoms and hence came to the ER. Currently she is being managed for Assessment: Sepsis secondary to UTI: As well as right-sided obstructive pyelonephritis secondary to partially obstructing right UPJ stone. CT abdomen pelvis w con: Partially obstructing 9 mm calculus at the level of the right ureteropelvic junction. Lactic acid 5.6 repeat lactic acid 3.2 Urinalysis dirty Urine culture Blood culture S/p: Cystoscopy with right ureteral stent placement: Urology on board Currently she is on Zosyn We will plan to discharge on prolonged p.o. antibiotic course in the setting of complicated UTI. Significant leukocytosis: Monitor CBC for now. History of hypothyroidism: Continue levothyroxine History of diabetes: SSI, monitor fingerstick glucose History of hypertension: Currently normotensive CODE STATUS: Full code DVT prophylaxis on Lovenox Attestations Medical Necessity Statement*: Needs to be in hospital for management of sepsis. Need for IV antibiotics. Coding Level of Care Code Acute Code for [facility] Diagnoses Diabetes mellitus E11.9 High cholesterol E78.00 Essential hypertension I10 Glaucoma H40.9 Hypothyroidism E03.9 Obesity (BMI 30-39.9) E66.9 Acute cystitis N30.00 Kidney stone N20.0 Sepsis A41.9 Right ureteral calculus N20.1
[2022-06-22] MEDS: enoxaparin 40 mg/0.4 mL Syringe SUBCUT (16:54)
[2022-06-22 17:07] LABS: Glucose Point of Care 164 mg/dL (70-110)
[2022-06-22] MEDS: insulin lispro 100 unit/1 mL SUBCUT (17:12)
[2022-06-22 21:55] LABS: Glucose Point of Care 156 mg/dL (70-110)
[2022-06-23] VITALS (14 sets, daily range): BP systolic 121–146; BP diastolic 68–87; PULSE 74–90; RESP 16–28; TEMP 36.6–37.1; O2SAT 92–98
[2022-06-23] MEDS: acetaminophen 325 mg Tablet 650 MG PO ×3 (01:21→21:52)
[2022-06-23] MEDS: ipratropium-albuterol 3 mL Neb INHALATION ×3 (01:32→22:13)
[2022-06-23 03:05] LABS: Basophils # 0.1 10^3/uL (0.0-0.1); Basophils % 0.2 %; Eosinophils # 0.2 10^3/uL (0.0-0.8); Hematocrit 35.5 % (37.0-47.0); Hemoglobin 11.1 g/dL (11.5-15.3); Lymphocytes # 2.3 10^3/uL (0.8-4.8); Lymphocytes % 9.3 %; Mean Corpuscular HGB Conc 31.3 g/dL (30.0-36.0); Mean Corpuscular Hemoglobin 30.3 pg (28.0-34.0); Mean Platelet Volume 10.5 fL (7.4-10.4); Monocytes % 4.2 %; Neutrophils # 19.64 10^3/uL (1.8-7.7); Neutrophils % 80.9 %; Nucleated Red Blood Cells % 0 %; Platelet Count 130 10^3/cmm (130-400); Red Blood Count 3.66 10^6/uL (4.1-5.3); Red Cell Distribution Width 13.2 % (12.1-15.1); White Blood Count 24.3 10^3/uL (4.0-10.0)
[2022-06-23 03:21] LABS: Alanine Aminotransferase 28 U/L (0-33); Albumin Level 2.8 g/dL (3.5-5.2); Alkaline Phosphatase 105 U/L (35-105); Anion Gap 10.6 (5-19); Aspartate Amino Transferase 35 U/L (0-32); Blood Urea Nitrogen 11 mg/dL (8-23); Calcium 9.5 mg/dL (8.5-10.5); Carbon Dioxide 24 mmol/L (22-29); Chloride 109 mmol/L (98-107); Glomerular Filtration Rate 221.9 mL/min (90-130); Glucose 139 mg/dL (65-115); Osmolality Calculated 292 mOsm/kg (285-295); Potassium 3.6 mmol/L (3.5-5.1); Sodium 140 mmol/L (136-145); Total Bilirubin 0.4 mg/dL (0.15-1.2); Total Protein 5.8 g/dL (6.6-8.7)
[2022-06-23] MEDS: piperacillin-tazobactam 3.375 GM in sodium chloride 0.9% (plus) 50 ML IV ×3 (04:04→18:32)
[2022-06-23 06:30] LABS: Glucose Point of Care 134 mg/dL (70-110)
--- NOTE | 2022-06-23 08:04 | P.PN_ITS ---
Subjective Subjective: Urology follow-up: She has been afebrile for the last 24 hours Vital signs have been stable. Normotensive. Some tachypnea. White count has improved from 33-24k She complaining of her neck hurting. She apparently has some chronic neck pain and uses essential oils and some [place] oil that seems to help. States that her can bring that in to see if that will improve her baseline. Reviewed again the big plan. Will continue IV antibiotics until safe to convert to oral. Look to attempt at definitive treatment of the stone in 2 to 3 weeks. Will need to be on chronic antibiotics for CHRONIC cystitis. Vitals/I&O/Wt Last Vital Signs Temp 98.2 F 06/23/22 08:00 Pulse 79 06/23/22 08:00 Resp 18 06/23/22 08:00 BP 121/68 06/23/22 08:00 Pulse Ox 97 06/23/22 08:00 O2 Del Method Nasal Cannula 06/23/22 08:00 O2 Flow Rate 4 06/23/22 01:33 06/22/22 06/23/22 06/23/22 22:59 06:59 14:59 Intake Total 2125 / 2535 50 / 2585 Output Total 1250 / 1250 1000 / 2250 Balance 875 / 1285 -950 / 335 Physical Exam Narrative: Alert oriented no acute distress Some tachypnea but no laboring. O2 per nasal cannula Abdomen is soft. No acute surgical abdomen. Good range of motion of extremities Seems a little depressed this morning. No neurodeficits. Urinary Catheter Management: Woody: Cath Placed During This Visit: yes Reason for Continuing Indwelling Catheter: Accurate Measurement of Urinary Output in Critically Ill Patients Urinary Catheter Date of Insertion: 06/21/22 Urinary Catheter Time of Insertion: 02:26 Data 06/23/22 02:35 06/23/22 02:35 Micro: Microbiology 06/21/22 00:53 Urine Culture - Preliminary Urine,Clean Catch A&P Assessment and plan (1) Right ureteral calculus: Bypassed with right ureteral stent emergently (2) Obstructive pyelonephritis: No longer obstructed. Creatinine is normal (3) Sepsis: Huge spike in white count on postop day #1. Clinically though no hemodynamic instability White count is improved today. (4) Shortness of breath: Plan No changes recommended per urologic approach at this point. See HPI Attestations Medical Necessity Statement*: See attending Coding Level of Care Code Acute Code for Chg Fwd Diagnoses Right ureteral calculus N20.1 Obstructive pyelonephritis N11.1 Sepsis A41.9 Shortness of breath R06.02
[2022-06-23] MEDS: latanoprost 0.005% Op Soln 2.5 mL Btl 1 DROP EYE-BOTH (08:33)
[2022-06-23] MEDS: levothyroxine 100 mcg Tablet PO (08:33)
[2022-06-23 11:07] LABS: Glucose Point of Care 193 mg/dL (70-110)
[2022-06-23] MEDS: insulin lispro 100 unit/1 mL SUBCUT (11:48)
[2022-06-23] MEDS: oxyCODONE-APAP 5-325 mg Tablet 1 TAB PO (12:32)
--- NOTE | 2022-06-23 16:52 | PM.PN ---
Subjective Subjective: Patient was seen and examined this morning she has remained afebrile overnight, white blood cell count is trending down, denied any abdominal pain flank pain, nausea vomiting, tolerating diet well, maintaining decent MAP, good urine output. Medications: Medication Review Details: Generic Name Dose Route Start Last Admin Trade Name Freq PRN Reason Stop Dose Admin Acetaminophen 650 mg 06/21/22 02:38 06/23/22 08:33 Acetaminophen 32 5 Mg Tablet PO 650 mg Q6H PRN Administration Mild/Mod Pain Or Temp >/= 101 Albuterol/Ipratrop ium 3 ml 06/22/22 14:00 06/23/22 13:34 Ipratropium-Albu terol 3 Ml Neb INHALATION Not Given Q6H.RESP MERRITT Enoxaparin Sodium 40 mg 06/21/22 17:45 06/22/22 16:54 Enoxaparin 40 Mg /0.4 Ml Syringe SUBCUT 40 mg Q24H MERRITT Administration Piperacillin Sod/T azobactam 50 mls @ 12.5 mls /hr 06/21/22 03:30 06/23/22 16:07 Sod 3.375 gm/ So dium Chloride IV Infused Q8H MERRITT Infusion Insulin Human Lisp ro 0 unit 06/22/22 18:00 06/23/22 11:48 Insulin Lispro 1 00 Unit/1 Ml SUBCUT 4 unit TIDWM MERRITT Administration Protocol Latanoprost 1 drop 06/21/22 09:00 06/23/22 08:33 Latanoprost 0.00 5% Op Soln 2.5 Ml Btl EYE-BOTH 1 drop DAILY MERRITT Administration Levothyroxine Sodi um 100 mcg 06/21/22 09:00 06/23/22 08:33 Levothyroxine 10 0 Mcg Tablet PO 100 mcg DAILY MERRITT Administration Vitals/I&O/Wt Last Vital Signs Temp 98.0 F 06/23/22 12:00 Pulse 83 06/23/22 14:00 Resp 19 H 06/23/22 12:32 BP 145/69 06/23/22 12:00 Pulse Ox 96 06/23/22 12:00 O2 Del Method Nasal Cannula 06/23/22 12:00 O2 Flow Rate 4 06/23/22 08:19 06/23/22 06/23/22 06/23/22 06:59 14:59 22:59 Intake Total 50 / 2585 530 / 530 50 / 580 Output Total 1000 / 2250 2350 / 2350 Balance -950 / 335 -1820 / -1820 50 / -1770 Physical Exam Const: COMMON NORMALS: patient oriented x3 HENMT: COMMON NORMALS: normocephalic and atraumatic HEAD & SCALP: normocephalic and atraumatic Resp: COMMON NORMALS: clear to auscultation bilaterally EFFORT & INSPECTION: Yes symmetric chest movement AUSCULTATION: clear to auscultation bilaterally Cardio: COMMON NORMALS: regular rate, regular rhythm, S1 normal heart sound present, S2 normal heart sound present, No gallops present (Cardio), No murmurs present (Cardio), No rub (Cardio) and Peripheral pulses 2+ throughout RATE: regular rate RHYTHM: regular rhythm HEART SOUNDS: S1 normal heart sound present and S2 normal heart sound present PERIPHERAL PULSES: Peripheral pulses 2+ throughout GI: COMMON NORMALS: Normal to inspection, nondistended, normoactive bowel sounds present, Soft to palpation, non-tender, No hepatosplenomegaly present and no masses AUSCULTATION: Yes normoactive bowel sounds PALPATION: Yes Soft to palpation and Yes No hepatosplenomegaly present RECTAL EXAM: deferred Extremity: COMMON NORMALS: no clubbing, cyanosis or edema and no pedal edema Neuro: COMMON NORMALS: patient oriented x3 Urinary Catheter Management: Woody: Cath Placed During This Visit: yes Reason for Continuing Indwelling Catheter: Accurate Measurement of Urinary Output in Critically Ill Patients Urinary Catheter Date of Insertion: 06/21/22 Urinary Catheter Time of Insertion: 02:26 Data 06/23/22 02:35 06/23/22 02:35 Micro: Microbiology 06/21/22 00:53 Urine Culture - Final Urine,Clean Catch A&P Assessment and plan (1) Diabetes mellitus: (2) High cholesterol: (3) Essential hypertension: (4) Glaucoma: (5) Hypothyroidism: (6) Obesity (BMI 30-39.9): (7) Acute cystitis: (8) Kidney stone: (9) Sepsis: (10) Right ureteral calculus: Plan 67-year-old female with past medical history of diabetes hypothyroidism glaucoma, hypertension dyslipidemia, came in yesterday with chief complaint of right-sided back pain associated with chills started yesterday. She was evaluated at urgent care, and sent home on ciprofloxacin for UTI, since reaching home she progressively experienced worsening of symptoms and hence came to the ER. Currently she is being managed for Assessment: Sepsis secondary to UTI: As well as right-sided obstructive pyelonephritis secondary to partially obstructing right UPJ stone. CT abdomen pelvis w con: Partially obstructing 9 mm calculus at the level of the right ureteropelvic junction. Lactic acid 5.6 repeat lactic acid 3.2 Urinalysis dirty Urine culture:GNR: Pending identification Blood culture:NTD S/p: Cystoscopy with right ureteral stent placement: Urology on board Currently she is on Zosyn We will plan to discharge on prolonged p.o. antibiotic course in the setting of complicated UTI. Significant leukocytosis: Monitor CBC for now. History of hypothyroidism: Continue levothyroxine History of diabetes: SSI, monitor fingerstick glucose History of hypertension: Currently normotensive CODE STATUS: Full code DVT prophylaxis on Lovenox Attestations Medical Necessity Statement*: Needs to be in hospital for IV antibiotic. Coding Level of Care Code Acute Code for Chg Fwd Diagnoses Diabetes mellitus E11.9 High cholesterol E78.00 Essential hypertension I10 Glaucoma H40.9 Hypothyroidism E03.9 Obesity (BMI 30-39.9) E66.9 Acute cystitis N30.00 Kidney stone N20.0 Sepsis A41.9 Right ureteral calculus N20.1
[2022-06-23 16:58] LABS: Glucose Point of Care 129 mg/dL (70-110)
[2022-06-23] MEDS: enoxaparin 40 mg/0.4 mL Syringe SUBCUT (17:49)
[2022-06-23 21:47] LABS: Glucose Point of Care 147 mg/dL (70-110)
--- NOTE | 2022-06-23 22:19 | XRR_ITS ---
PROCEDURE INFORMATION: Exam: XR Chest Exam date and time: 06/23/2022 9:28 PM Age: 67 years old Clinical indication: Shortness of breath and wheezing TECHNIQUE: Imaging protocol: Radiologic exam of the chest. Views: 1 view. COMPARISON: CR (CHEST, ) 06/20/2022 11:19 PM FINDINGS: Lungs: There is prominence of the pulmonary cyndy again seen. There are patchy and hazy opacity seen in the hemithoraces bilaterally. Pleural spaces: Unremarkable. No pleural effusion. No pneumothorax. Heart/Mediastinum: Unremarkable. No cardiomegaly. Bones/joints: Unremarkable. XR/XR chest 1V portable [id number] IMPRESSION: 1. Prominent pulmonary cyndy again noted possibly representing prominent lymph nodes. 2. Patchy and hazy opacities are seen in the hemithoraces bilaterally appearing more confluent today compared with 06/20/2022, findings that may represent a worsening bilateral patchy interstitial pneumonia.
[2022-06-23] MEDS: FUROsemide 10 mg/mL SDV 4mL 40 MG IVP (22:30)
--- NOTE | 2022-06-23 22:41 | PC.NURSE ---
Patient is uncomfortable, short of breath and the lungs have wheezes to auscultation after RT administered treatment. Dr. Spicer notified via telephone of change in condition and was given current vital signs. Verbal orders received for stat chest x-ray, 40 mg IV Lasix once and routine echocardiogram to rule out heart failure.
[2022-06-24] VITALS (12 sets, daily range): BP systolic 117–163; BP diastolic 64–83; PULSE 71–90; RESP 16–24; TEMP 36.6–37.1; O2SAT 89–99
[2022-06-24] MEDS: piperacillin-tazobactam 3.375 GM in sodium chloride 0.9% (plus) 50 ML IV ×3 (03:06→21:04)
[2022-06-24] MEDS: ipratropium-albuterol 3 mL Neb INHALATION ×4 (03:48→22:05)
[2022-06-24 04:43] LABS: Basophils # 0.1 10^3/uL (0.0-0.1); Basophils % 0.5 %; Eosinophils # 0.5 10^3/uL (0.0-0.8); Eosinophils % 3.3 %; Hematocrit 38.4 % (37.0-47.0); Lymphocytes # 2.9 10^3/uL (0.8-4.8); Lymphocytes % 20.1 %; Mean Corpuscular HGB Conc 31.3 g/dL (30.0-36.0); Mean Corpuscular Hemoglobin 29.8 pg (28.0-34.0); Mean Corpuscular Volume 95.3 fl (81-99); Mean Platelet Volume 10.6 fL (7.4-10.4); Monocytes # 0.9 10^3/uL (0.2-0.9); Monocytes % 6.2 %; Neutrophils # 10.06 10^3/uL (1.8-7.7); Neutrophils % 69.3 %; Nucleated Red Blood Cells % 0 %; Platelet Count 150 10^3/cmm (130-400); Red Blood Count 4.03 10^6/uL (4.1-5.3); Red Cell Distribution Width 12.9 % (12.1-15.1); White Blood Count 14.5 10^3/uL (4.0-10.0)
[2022-06-24 05:07] LABS: Alanine Aminotransferase 25 U/L (0-33); Albumin Level 2.9 g/dL (3.5-5.2); Alkaline Phosphatase 134 U/L (35-105); Anion Gap 9.4 (5-19); Aspartate Amino Transferase 27 U/L (0-32); Blood Urea Nitrogen 6 mg/dL (8-23); Calcium 9.2 mg/dL (8.5-10.5); Carbon Dioxide 34 mmol/L (22-29); Chloride 102 mmol/L (98-107); Globulin 3.3 g/dL (1.3-4.6); Glomerular Filtration Rate 221.9 mL/min (90-130); Glucose 134 mg/dL (65-115); Osmolality Calculated 294 mOsm/kg (285-295); Potassium 3.4 mmol/L (3.5-5.1); Sodium 142 mmol/L (136-145); Total Bilirubin 0.5 mg/dL (0.15-1.2); Total Protein 6.2 g/dL (6.6-8.7)
[2022-06-24 06:54] LABS: Glucose Point of Care 122 mg/dL (70-110)
[2022-06-24] MEDS: levothyroxine 100 mcg Tablet PO (08:54)
[2022-06-24] MEDS: latanoprost 0.005% Op Soln 2.5 mL Btl 1 DROP EYE-BOTH (08:54)
--- NOTE | 2022-06-24 10:57 | PM.PN ---
Subjective Subjective: Daughter is at the bedside stating that this morning mentation of her mother is slightly better However she is still taking time to answer question Nonfocal neuro exam Overnight she received Lasix for shortness of breath Chest x-ray concerning for pneumonia Added vancomycin Requested MRSA and started vancomycin Patient stating that she had a bowel movement I have asked nurse to remove Woody catheter Dr. Prasad was okay with removal of Woody catheter Vitals/I&O/Wt Last Vital Signs Temp 97.8 F 06/24/22 07:55 Pulse 87 06/24/22 08:44 Resp 18 06/24/22 08:44 BP 163/67 06/24/22 07:55 Pulse Ox 89 L 06/24/22 08:44 O2 Del Method Room Air 06/24/22 08:44 O2 Flow Rate 3 06/24/22 08:00 06/23/22 06/24/22 06/24/22 22:59 06:59 14:59 Intake Total 340 / 870 290 / 290 Output Total 1450 / 3800 3850 / 7650 Balance -1110 / -2930 -3850 / -6780 290 / 290 Physical Exam Narrative: Normal breath sounds on posterior lung auscultation Currently on 2 L of oxygen Awake and alert Abdomen soft Nonfocal neuro exam She is good strength of upper lower extremity Pupils equally reactive to light no asymmetry Abdomen soft S1, S2 Pleasant cooperative Daughter is at the bedside Urinary Catheter Management: Woody: Cath Placed During This Visit: yes Reason for Continuing Indwelling Catheter: Accurate Measurement of Urinary Output in Critically Ill Patients Urinary Catheter Date of Insertion: 06/21/22 Urinary Catheter Time of Insertion: 02:26 Data 06/24/22 04:23 06/24/22 04:23 Micro: Microbiology 06/21/22 00:53 Urine Culture - Final Urine,Clean Catch A&P Assessment and plan (1) Pneumonia: (2) Diverticulosis large intestine w/o perforation or abscess w/bleeding: (3) Diabetes mellitus: (4) Hypothyroidism: (5) Kidney stone: (6) Acute cystitis: (7) Right ureteral calculus: (8) Shortness of breath: (9) Acute delirium: Plan Acute hypoactive delirium Nonfocal neuro exam, patient is slow to answer questions As per the daughter her mentation is getting better Requested MRSA PCR Added vancomycin to her Zosyn DuoNeb every 4 as needed Wean oxygen to room air does not use oxygen at home Delirium like related to underlying pneumonia UTI and constipation Constipation: Relieved patient had a bowel movement added senna S Sepsis related to complicated UTI status post intervention Leukocytosis trending down Cultures negative to date Afebrile Cultures/report is pending Hypothyroidism continue levothyroxine Sliding scale for diabetes Obstructive uropathy: Status post intervention 06/[address] Gill Patient is hypertensive today reduce antihypertensive regimen Full code Cardiac diet DVT prophylaxis on board Remove Woody catheter today , Chest x-ray reviewed showing interstitial infiltrate, Dr. Gill updated Attestations Medical Necessity Statement*: Continue medical management Diagnoses Pneumonia J18.9 Diverticulosis large intestine w/o perforation or abscess w/bleeding K57.31 Diabetes mellitus E11.9 Hypothyroidism E03.9 Kidney stone N20.0 Acute cystitis N30.00 Right ureteral calculus N20.1 Shortness of breath R06.02 Acute delirium R41.0
--- NOTE | 2022-06-24 11:09 | CT_ITS ---
WS: [id number] CT chest wo con [id number] HISTORY: Short of breath, hypoxia TECHNIQUE: Axial imaging performed through the thorax. Coronal and sagittal reformats are submitted. All CT scans at [facility] use at least one of these dose optimization techniques: automated exposure control; mA and/or kV adjustment per patient size (includes targeted exams where dose is mat ched to clinical indication); or iterative reconstruction. CONTRAST: None DLP: 520.25 mGy.cm COMPARISON: None available. Limited by poor inspiration and motion artifact. Lungs and central airway: Lung volumes are markedly decreased. Very poor and limited pulmonary expans ion. Bilateral opacifications noted throughout both lungs. Elevated RIGHT diaphragm. Pleura: Normal. No pleural effusion. Heart and pericardium: Moderate cardiomegaly. Mediastinum and cyndy: No mediastinum or hilar adenopathy. Vessels: Mild atherosclerosis aorta. Pulmonary artery size is mildly dilated at 3.6 cm. Chest wall and lower neck: No soft tissue masses. Upper abdomen: High riding RIGHT hemidiaphragm with the liver being elevated into the RIGHT thorax. Osseous structures: No destructive process. CT/CT chest wo con [id number] IMPRESSION: 1. Marked decrease in lung volumes and poor inspiration. 2. Extensive bilateral pulmonary opacifications. Differential includes pneumon itis, pulmonary edema and pneumonia. 3. Elevated RIGHT diaphragm. 4. Moderate cardiomegaly.
--- NOTE | 2022-06-24 11:17 | PC.PHAR ---
Trough to be drawn prior to 3rd dose... pt renal function being monitored twice daily SCR being adjusted for age Patient: Floor: Age: 67 yo Serum creatinine: 0.7 mg/dL Height: 59.8 Inches Weight (kg): 99 IBW (kg): 45.35 Dosing wt(kg): 99 Estimated Creatinine clearance (ml/min): 55.8 CRCL method: Cockcroft and Gault using ibw(default). Drug selected: Vancomycin Loading dose (mg): Vd (liters): 69.3 (factor used: 0.7 L/kg) Rudolph (hr-1): 0.051 Half life (hrs): 13.59 CLvanco=?? 3.534 L/hr Recommended dose: 1500 mg Interval: 18 hrs Infusion time (hrs): 1 Predicted peak (mcg/mL): 35.1 Predicted trough (mcg/mL): 14.75 Total body weight is being used for vancomycin dosing. Recommendations: Give Vancomycin 1500 mg q 18 hrs with an expected Cpeak of 35.1 mcg/ml and an expected Ctrough of 14.75 mcg/ml AUC 0-24 /GINNA Data: GINNA 0.5 mcg/mL:?? AUC/GINNA:? 1131.9 GINNA 1.0 mcg/mL:?? AUC/GINNA:? 565.9 --------- GINNA 1.5 mcg/mL:?? AUC/GNINA:? 377.3 GINNA 2.0 mcg/mL:?? AUC/GINNA:? 283.0 Renal dosing of other antibiotics (review renal dosing of other medications and list guidelines here): Thank you for the consult, will continue to follow. Signature: Francis TinsleyD
[2022-06-24 11:36] LABS: Glucose Point of Care 245 mg/dL (70-110)
--- NOTE | 2022-06-24 11:44 | PC.SOCIAL ---
IMM Update pg 2 of IMM updated and reviewed w/ patient. Copy provided and Copy dated, initialed and placed in chart.
[2022-06-24] MEDS: vancomycin 1,500 MG/300 ML PIGGYBACK 200 MG IV (12:04)
[2022-06-24] MEDS: insulin lispro 100 unit/1 mL SUBCUT ×2 (12:04→17:53)
[2022-06-24 17:08] LABS: Glucose Point of Care 191 mg/dL (70-110)
[2022-06-24] MEDS: enoxaparin 40 mg/0.4 mL Syringe SUBCUT (17:54)
[2022-06-24 20:38] LABS: Glucose Point of Care 137 mg/dL (70-110)
[2022-06-24 21:15] LABS: Adenovirus Not Detected (NOT DETECT); Chlamydia Pneumoniae Not Detected (NOT DETECT); Coronavirus 229E,HKU1,NL63,OC4 Not Detected (NOT DETECT); Human Metapneumovirus Not Detected (NOT DETECT); Human Rhinovirus/Enterovirus Not Detected (NOT DETECT); Influenza A Not Detected (NOT DETECT); Influenza A H1 Not Detected (NOT DETECT); Influenza A H1-2009 Not Detected (NOT DETECT); Influenza A H3 Not Detected (NOT DETECT); Influenza B Not Detected (NOT DETECT); Mycoplasma Pneumoniae Not Detected (NOT DETECT); Parainfluenza Virus Type 1 Not Detected (NOT DETECT); Parainfluenza Virus Type 2 Not Detected (NOT DETECT); Parainfluenza Virus Type 3 Not Detected (NOT DETECT); Parainfluenza Virus Type 4 Not Detected (NOT DETECT); Respiratory Syncytial Virus A Not Detected (NOT DETECT); Respiratory Syncytial Virus B Not Detected (NOT DETECT); SARS-COV-2 Not Detected (NOT DETECT)
--- NOTE | 2022-06-24 22:19 | USCV_ITS ---
Jenny Lopez Age: 67 Gender: F : 1955 Exam Date: 06/24/2022 07:36 Ordering Phys: Irina Spicer MD Technologist: ANTONIO [place] [facility] [place]: EF ? chf BP: 150 / 90 HR: 70 Rhythm: Sinus Technical Quality: Adequate MEASUREMENTS (Male / Female) Normal Values 2D ECHO LV Diastolic Diameter PLAX 4.5 cm 4.2 - 5.9 / 3.9 - 5.3 cm LV Systolic Diameter PLAX 3.5 cm IVS Diastolic Thickness 1.6 cm 0.6 - 1.0 / 0.6 - 0.9 cm IVS Systolic Thickness 1.9 cm LVPW Diastolic Thickness 1.5 cm 0.6 - 1.0 / 0.6 - 0.9 cm LVPW Systolic Thickness 1.5 cm LVOT Diameter 2.0 cm LV Ejection Fraction 2D Teich 36.8 % LV Ejection Fraction MOD 2C 64.7 % LV Ejection Fraction 2C AL 67.0 % LA Diameter 4.6 cm Aorta at Sinotubular Diameter 3.1 cm M-MODE Aortic Annulus Diameter 3.9 cm LA Ao Ratio MM 1.2 MV E Point Septal Separation 1.4 cm DOPPLER AV Peak Velocity 138.0 cm/s LVOT Peak Velocity 115.0 cm/s AV Area Cont Eq vti 2.6 cm squared AV Area Cont Eq pk 2.8 cm squared MV Area PHT 5.0 cm squared Mitral E to A Ratio 0.9 MV E' Velocity 47.5 cm/s Mitral E to MV E' Ratio 12.3 Mitral E to LV E' Lateral Ratio 9.8 Mitral E to LV E' Septal Ratio 16.6 TR Peak Velocity 271.3 cm/s TR Peak Gradient 29.4 mmHg TV Peak E Velocity 100.0 cm/s Right Atrial Pressure 3.0 mmHg Pulmonary Artery Systolic Pressu 32.4 mmHg FINDINGS Left Ventricle Left ventricle is normal in size. LV systolic function is normal with EF of 55 to 60%. No regional wall motion abnormalities are seen. Grade 1 diastolic dysfunction Right Ventricle Normal in size and function Right Atrium Normal in size Left Atrium Dilated Mitral Valve Structurally normal mitral valve. Mild mitral regurgitation. Aortic Valve Structurally normal aortic valve. No significant stenosis or regurgitation. Tricuspid Valve Mild tricuspid regurgitation. RVSP is 35-40mmHg. This is mild pulmonary hypertension Pulmonic Valve Not well visualized Pericardium Normal Aorta Normal in size IVC Appears to be normal CONCLUSIONS LV systolic function is normal with EF 55 to 60% Grade 1 diastolic dysfunction Left atrial dilation Mild mitral regurgitation Mild tricuspid regurgitation Mild pulmonary hypertension No comparison studies are available. Alek Peres MD (Electronically Signed) Final Date: 24 Jun 2022 17:37 S
[2022-06-25] VITALS (13 sets, daily range): BP systolic 92–149; BP diastolic 52–91; PULSE 71–80; RESP 15–18; TEMP 36.1–36.7; O2SAT 89–100
[2022-06-25] MEDS: ipratropium-albuterol 3 mL Neb INHALATION ×4 (01:24→19:29)
[2022-06-25] MEDS: vancomycin 1,500 MG/300 ML PIGGYBACK 200 MG IV (05:00)
[2022-06-25 06:16] LABS: Basophils # 0.1 10^3/uL (0.0-0.1); Basophils % 0.7 %; Eosinophils # 0.4 10^3/uL (0.0-0.8); Eosinophils % 3.2 %; Hematocrit 39.1 % (37.0-47.0); Hemoglobin 12.3 g/dL (11.5-15.3); Lymphocytes # 2.4 10^3/uL (0.8-4.8); Lymphocytes % 21.2 %; Mean Corpuscular HGB Conc 31.5 g/dL (30.0-36.0); Mean Corpuscular Hemoglobin 29.9 pg (28.0-34.0); Mean Corpuscular Volume 94.9 fl (81-99); Mean Platelet Volume 10.4 fL (7.4-10.4); Monocytes % 8.8 %; Neutrophils # 7.52 10^3/uL (1.8-7.7); Neutrophils % 65.5 %; Nucleated Red Blood Cells % 0 %; Platelet Count 153 10^3/cmm (130-400); Red Blood Count 4.12 10^6/uL (4.1-5.3); Red Cell Distribution Width 12.8 % (12.1-15.1); White Blood Count 11.5 10^3/uL (4.0-10.0)
[2022-06-25] MEDS: piperacillin-tazobactam 3.375 GM in sodium chloride 0.9% (plus) 50 ML IV (06:17)
[2022-06-25 06:32] LABS: Glucose Point of Care 135 mg/dL (70-110)
[2022-06-25 06:49] LABS: Alanine Aminotransferase 16 U/L (0-33); Albumin Level 2.6 g/dL (3.5-5.2); Alkaline Phosphatase 113 U/L (35-105); Anion Gap 10.4 (5-19); Aspartate Amino Transferase 15 U/L (0-32); Blood Urea Nitrogen 9 mg/dL (8-23); Calcium 9.5 mg/dL (8.5-10.5); Carbon Dioxide 30 mmol/L (22-29); Chloride 102 mmol/L (98-107); Globulin 3.3 g/dL (1.3-4.6); Glomerular Filtration Rate 221.9 mL/min (90-130); Glucose 140 mg/dL (65-115); Osmolality Calculated 289 mOsm/kg (285-295); Potassium 3.4 mmol/L (3.5-5.1); Sodium 139 mmol/L (136-145); Total Bilirubin 0.3 mg/dL (0.15-1.2); Total Protein 5.9 g/dL (6.6-8.7)
--- NOTE | 2022-06-25 07:07 | XRR_ITS ---
PROCEDURE INFORMATION: Exam: XR Abdomen Exam date and time: 06/25/2022 8:03 AM Age: 67 years old Clinical indication: Device placement; Urinary device; Renal or nephroureteral stent; Prior surgery; Surgery date: Post-operative (0-2 days); Surgery type: Checking on placement of stint; Additional info: Followup right ureteral stone, not portable! TECHNIQUE: Imaging protocol: Radiologic exam of the abdomen. Views: Frontal supine view of the abdomen. 1 View. COMPARISON: CT abdomen pelvis w con* [id number] 06/20/2022 11:56 PM FINDINGS: Tubes, catheters and devices: Right ureteral stent is appropriately positioned with the proximal coil projecting over the expected position of renal pelvis and distal coil in the region of the bladder. No stones are seen. Gastrointestinal tract: Bowel gas pattern is unremarkable. No sign of obstruction. Bones/joints: There is mild degenerative disease in the lumbar spine. XR/XR KUB [id number] IMPRESSION: Satisfactory right ureteral stent position. No visible stone.
--- NOTE | 2022-06-25 07:26 | PM.PN ---
Subjective Subjective: Urology follow-up clinically doing much better. No fever. White count is close to normal. She feels much better. Oxygen is off. Vital signs have been stable. Reviewed with her the steps to definitive treatment of the stone. We will go ahead and get a KUB today to assess the radiopaque versus radiolucent status of the stone which may influence treatment options. She will need to go home on antibiotics based on sensitivities for an extended period of time. This will now include treating her obstructive pyelonephritis sepsis but also chronic cystitis cystica. Explained this again in detail. Vitals/I&O/Wt Last Vital Signs Temp 97.7 F 06/25/22 04:00 Pulse 72 06/25/22 06:00 Resp 16 06/25/22 04:00 BP 143/84 06/25/22 04:00 Pulse Ox 98 06/25/22 04:00 O2 Del Method Room Air 06/25/22 01:24 O2 Flow Rate 2 06/24/22 20:00 06/24/22 06/25/22 06/25/22 22:59 06:59 14:59 Intake Total 170 / 1000 350 / 1350 Balance 170 / 200 350 / 550 Physical Exam Narrative: Alert oriented no acute distress Normal respiratory effort. No tachypnea. O2 is off. Good range of motion of extremities Much more cheery. No neurodeficits. Baseline Urinary Catheter Management: Woody: Cath Placed During This Visit: yes, but has since been removed by the nurse Reason for Continuing Indwelling Catheter: Decision to DC Catheter Urinary Catheter Date of Insertion: 06/21/22 Urinary Catheter Time of Insertion: 02:26 Date Urinary Catheter Removed: 06/24/22 Time Urinary Catheter Discontinued: 11:30 Data 06/25/22 06:05 06/25/22 06:05 A&P Assessment and plan (1) Right ureteral calculus: Bypassed with right ureteral stent emergently Clinically doing well. Plan for KUB today to assess for radiolucency or radiopaque status of the stone. (2) Obstructive pyelonephritis: No longer obstructed. Creatinine is normal Much better from an infectious perspective (3) Sepsis: Resolved (4) Shortness of breath: Markedly improved Plan 1. KUB today 2. At discharge we will make plans for follow-up in the clinic and planning for definitive treatment of the stone. 3. We will need to continue antibiotics at discharge both for treatment of obstructive pyelonephritis as well as chronic cystitis cystica Attestations Medical Necessity Statement*: See attending Coding Level of Care Code Acute Code for g Fwd Diagnoses Right ureteral calculus N20.1 Obstructive pyelonephritis N11.1 Sepsis A41.9 Shortness of breath R06.02
[2022-06-25] MEDS: levothyroxine 100 mcg Tablet PO (09:31)
[2022-06-25] MEDS: sennosides-docusate Tablet 1 TAB PO (09:32)
[2022-06-25] MEDS: latanoprost 0.005% Op Soln 2.5 mL Btl 1 DROP EYE-BOTH (09:32)
[2022-06-25] MEDS: acetaminophen 325 mg Tablet 650 MG PO ×2 (11:28→17:58)
[2022-06-25 11:47] LABS: Glucose Point of Care 200 mg/dL (70-110)
--- NOTE | 2022-06-25 12:24 | CT_ITS ---
WS: [id number] CT HEAD NONCONTRAST HISTORY: Confusion TECHNIQUE: Contiguous axial imaging performed through the brain in 2.5 mm imaging. Bone and soft tiss ue windows. Sagittal and coronal reformats reviewed. All CT scans at [facility] use at least one of these dose optimization techniques: automated exposure control; mA and/or kV adjustment per pa tient size (includes targeted exams where dose is matched to clinical indication); or iterative recon struction. DLP: 975.08 mGy.cm COMPARISON: None available. Focal area of acute parenchymal hemorrhage involving the inferior lateral RIGHT temporal lobe with a small amount of surrounding edema. Focal area of hemorrhage measures 10 x 8 mm. There is a additional , what is probably subarachnoid blood versus cortical small petechial hemorrhages extending into the RIGHT temporal and occipital lobes. There is effacement of sulci and edema in the RIGHT temporal and occipital lobes. At this time there is no midline shift. No significant atrophy and no prior infarct. No inferior displacement of cerebellar tonsils. Ventricles: Normal size with no hydrocephalus. Paranasal sinuses: As visualized are clear. Mastoid air cells: Well pneumatized. Calvarium and scalp: Skull is intact with no soft tissue edema or swelling. CT/CT head wo con* [id number] IMPRESSION: 1. Acute parenchymal hemorrhage measuring 10 x 8 mm centered in the inferior l ateral RIGHT temporal lobe with a small amount of surrounding edema. 2. There is additional blood products which may be cortical etiology of subara chnoid in the RIGHT occipital and temporal region. There is sulcal effacement a nd edema. No midline shift. 3. Patient will need to be further evaluated to determine etiology. Evaluate f or possible mass or vascular malformation. This may be a spontaneous hemorrhage . Notified Kristina Graham MD at 06/25/2022 1:04 PM.
--- NOTE | 2022-06-25 12:25 | PM.PN ---
Subjective Subjective: is at the bedside Stating that Mrs. Lopez mentation is clearing up however still fatigued and lethargic Patient is answer my question appropriately She goes back to bed to rest however redirectable to verbal stimuli Requested CT head without contrast Chest x-ray showing pneumonitis pulm edema versus pneumonia Patient is on room air She had 1 bowel movement yesterday Not endorsing active burning on voiding urine Vitals/I&O/Wt Last Vital Signs Temp 98.0 F 06/25/22 08:00 Pulse 80 06/25/22 12:00 Resp 16 06/25/22 12:00 BP 145/85 06/25/22 12:00 Pulse Ox 98 06/25/22 12:00 O2 Del Method Nasal Cannula 06/25/22 12:00 O2 Flow Rate 2 06/25/22 12:00 06/24/22 06/25/22 06/25/22 22:59 06:59 14:59 Intake Total 170 / 1000 350 / 1350 50 / 50 Output Total 125 / 125 Balance 170 / 200 350 / 550 -75 / -75 Physical Exam Narrative: Nonfocal neuro exam Euvolemic Abdomen soft Currently on room air S1, S2 Family is at the bedside Patient is awake and alert GCS 15 Urinary Catheter Management: Woody: Cath Placed During This Visit: yes, but has since been removed by the nurse Reason for Continuing Indwelling Catheter: Decision to DC Catheter Urinary Catheter Date of Insertion: 06/21/22 Urinary Catheter Time of Insertion: 02:26 Date Urinary Catheter Removed: 06/24/22 Time Urinary Catheter Discontinued: 11:30 Data 06/25/22 06:05 06/25/22 06:05 A&P Assessment and plan (1) Acute delirium: (2) Pneumonia: (3) Diabetes mellitus: (4) Right ureteral calculus: (5) Shortness of breath: (6) Sepsis: (7) Acute cystitis: (8) Obstructive pyelonephritis: (9) Hypothyroidism: Plan Nocturnal hypoxemia she will need outpatient sleep study Fatigue and lethargy We will request CT head without contrast Sepsis related to obstructive uropathy Status post stent placement Afebrile Leukocytosis trending down Disposition: Able to go home in next 24 to 48 hours if remains stable Will need at least 2 weeks of p.o. antibiotics Patient has E. coli in her urine, no bacteremia I will switch her antibiotics to levofloxacin Constipation: Resolved Fully cath removed 06/24 Full code Discharge tomorrow if stable Attestations Medical Necessity Statement*: Continue medical management Diagnoses Acute delirium R41.0 Pneumonia J18.9 Diabetes mellitus E11.9 Right ureteral calculus N20.1 Shortness of breath R06.02 Sepsis A41.9 Acute cystitis N30.00 Obstructive pyelonephritis N11.1 Hypothyroidism E03.9
[2022-06-25] MEDS: potassium chloride ER 20 mEq Tablet 40 MEQ PO (13:11)
[2022-06-25] MEDS: FUROsemide 20 mg Tablet PO (13:11)
[2022-06-25] MEDS: insulin lispro 100 unit/1 mL SUBCUT (13:11)
[2022-06-25 13:41] LABS: Ammonia 42 umol/L (11-51)
--- NOTE | 2022-06-25 13:47 | CTR_ITS ---
PROCEDURE INFORMATION: Exam: CTA Head Without And With Contrast, Arteriography Exam date and time: 06/25/2022 3:57 PM Age: 67 years old Clinical indication: Other: Bleed found on previous CT head wo contrast TECHNIQUE: Imaging protocol: Computed tomographic angiography of the head without and with contrast. Exam focused on the arteries. 3D rendering (Not supervised by radiologist): MIP and/or 3D reconstructed images were created by the technologist. Radiation optimization: All CT scans at this facility use at least one of these dose optimization techniques: automated exposure control; mA and/or kV adjustment per patient size (includes targeted exams where dose is matched to clinical indication); or iterative reconstruction. Contrast material: OMNI 350; Contrast volume: 100 ml; Contrast route: INTRAVENOUS (IV); REPORTING DATA: Count of CT and Cardiac NM exams in prior 12 months: This patient has received 2 known CTs and 0 known cardiac nuclear medicine studies in the 12 months prior to the current study. COMPARISON: MR head wo con* [id number] 06/25/2022 3:08 PM RADIATION DOSE METRICS: Total DLP (mGy-cm): 1060 FINDINGS: ANTERIOR CIRCULATION: Right internal carotid artery: Intracranial segment is patent with no significant stenosis or occlusion. No aneurysm. Right middle cerebral artery: No occlusion or significant stenosis. No aneurysm. Right anterior cerebral artery: No occlusion or significant stenosis. No aneurysm. Left internal carotid artery: Intracranial segment is patent with no significant stenosis. No aneurysm. Left middle cerebral artery: No occlusion or significant stenosis. No aneurysm. Left anterior cerebral artery: No occlusion or significant stenosis. No aneurysm. POSTERIOR CIRCULATION: Right vertebral artery: No occlusion or significant stenosis. No aneurysm. Left vertebral artery: No occlusion or significant stenosis. No aneurysm. Basilar artery: No occlusion or significant stenosis. No aneurysm. Right posterior cerebral artery: No occlusion or significant stenosis. No aneurysm. Left posterior cerebral artery: No occlusion or significant stenosis. No aneurysm. HEAD: Brain: Redemonstrated 1 cm acute parenchymal hematoma within the inferolateral right temporal lobe with a rim of surrounding edema. There also remains a trace amount of subarachnoid hemorrhage in the right parietal temporal lobes. There is no prominent feeding vessels seen communicating with the area of hemorrhage. Cerebral ventricles: Normal. No ventriculomegaly. Bones/joints: Unremarkable. No acute fracture. Paranasal sinuses: Visualized sinuses are normal. No fluid levels. Mastoid air cells: Visualized mastoids are normal. No mastoid effusion. Soft tissues: Unremarkable. PROCEDURE INFORMATION: Exam: CTA Neck Without And With Contrast Exam date and time: 06/25/2022 3:57 PM Age: 67 years old Clinical indication: Other: Bleed found on previous CT head wo contrast TECHNIQUE: Imaging protocol: Computed tomographic angiography of the neck without and with contrast. 3D rendering (Not supervised by radiologist): MIP and/or 3D reconstructed images were created by the technologist. Radiation optimization: All CT scans at this facility use at least one of these dose optimization techniques: automated exposure control; mA and/or kV adjustment per patient size (includes targeted exams where dose is matched to clinical indication); or iterative reconstruction. Contrast material: OMNI 350; Contrast volume: 100 ml; Contrast route: INTRAVENOUS (IV); REPORTING DATA: Count of CT and Cardiac NM exams in prior 12 months: This patient has received 2 known CTs and 0 known cardiac nuclear medicine studies in the 12 months prior to the current study. COMPARISON: MR head wo con* [id number] 06/25/2022 3:08 PM RADIATION DOSE METRICS: Total DLP (mGy-cm): 1060 FINDINGS: Right common carotid artery: No stenosis. No dissection or occlusion. Right internal carotid artery: No stenosis of the extracranial segment. No dissection or occlusion. Right external carotid artery: No occlusion or stenosis of the origin. Left common carotid artery: No stenosis. No dissection or occlusion. Left internal carotid artery: No stenosis of the extracranial segment. No dissection or occlusion. Left external carotid artery: No occlusion or stenosis of the origin. Right vertebral artery: No stenosis. No dissection or occlusion. Left vertebral artery: No stenosis. No dissection or occlusion. Soft tissues: Normal. No significant soft tissue swelling. Bones/joints: No acute fracture. CT/CT angio headneck* [id number] IMPRESSION: 1. Redemonstrated 1 cm acute parenchymal hematoma within the inferolateral right temporal lobe. No prominent feeding vessels seen communicating with the area of hemorrhage. 2. Trace subarachnoid hemorrhage again noted in the right parietal and temporal lobes. 3. No large vessel occlusion. IMPRESSION: No stenosis or occlusion. REFERENCES: NASCET CRITERIA. The degree of stenosis in the cervical segment of the internal carotid artery is based on NASCET criteria. Normal is no stenosis. Mild is less than 50% stenosis. Moderate is 50-69% stenosis. Severe is 70% to 99% stenosis. Total occlusion is no detectable patent lumen.
--- NOTE | 2022-06-25 13:47 | MR_ITS ---
WS: [id number] MRI HEAD WITHOUT CONTRAST TECHNIQUE: Sagittal T1, T2 axial, T2 axial FLAIR, axial and coronal T1 images, axial susceptibility w eighted imaging, axial diffusion weighted images, and coronal T2 images were obtained. CLINICAL INFORMATION: bleed COMPARISON: CT June 25, 2022 FINDINGS: Limited study due to motion artifact and confusion. Again seen is the intraparenchymal hematoma within the RIGHT posterior temporal lobe unchanged since the recent CT. This measures approximately 8.6 x 6.9 mm. Mild surrounding edema. Additional areas of increased subarachnoid signal within the RIGHT frontal parietal and occipital lobes and LEFT frontal lobe suspicious for subarachnoid hemorrhage. Corresponding hemosiderin on the susceptibly weighted im aging predominantly in the occipital lobes although significantly degraded by artifact. Tiny punctate foci of hemosiderin in the occipital lobes bilaterally. Differential considerations include aneurysmal subarachnoid hemorrhage, posttraumatic subarachnoid he morrhage, PRES, vasculitis, and possibly amyloid in a patient this age, although less likely. Patient also on supplemental oxygen which can contribute to increased artifactual subarachnoid FLAIR signal. Normal posterior fossa. Normal visualized vascular flow voids at the skull base. No hydrocephalus. Pa ranasal sinuses are well aerated.Normal optic chiasm and pituitary infundibulum. MR/MR head wo con* [id number] IMPRESSION: Very limited examination due to confusion and motion. 1. Stable intraparenchymal hematoma in RIGHT posterior temporal lobe with mild surrounding edema. 2. Increased FLAIR signal within the bilateral frontal lobes RIGHT greater hernandez n LEFT, RIGHT occipital lobe, RIGHT temporal lobe, and RIGHT parietal lobe susp icious for subarachnoid hemorrhage. Susceptibility weighted images show some ar eas of corresponding hemosiderin in the bilateral occipital lobes with punctate areas of hemosiderin. 3. Differential considerations include aneurysmal subarachnoid hemorrhage, pos ttraumatic subarachnoid hemorrhage, PRES, vasculitis and amyloid in a patient t his age. CTa is pending. 4. Mild effacement of the overlying sulci. No hydrocephalus. 5. No other acute findings. Notified Kristina Graham MD at 06/25/2022 4:41 PM.
[2022-06-25 14:14] LABS: Vitamin B12 1565 pg/mL (232-1245)
--- NOTE | 2022-06-25 16:45 | PM.CONSULT ---
Providers/Reason For Consult Consulting Physician/Specialty*: Jeancarlos Rios MD neurology and epilepsy Reason for Consult*: Reason for neurology consult: Encephalopathy and acute parenchymal hemorrhage in the right inferior/lateral temporal lobe with small amount of surrounding edema measuring 10 x 8 mm extending into the right temporal/occipital lobes with effacement of sulci and edema in the right temporal and occipital lobes without midline shift or hydrocephalus, assess for subarachnoid hemorrhage. Requesting Physician: Dr. Kristina Graham M.D. Attending Physician: Wei Gill MD Primary Care Provider: Madhu Felder MD History of Present Illness History of Present Illness Jenny Lopez is a 67 year old female with a history of type 2 diabetes mellitus, hypertension controlled with diet, and history of knee surgeries. According to the patient's who was at the patient's bedside this evening, the patient felt sick on 06/21/2022 and she was complaining of feeling cold and was shivering and was experiencing nausea and vomiting. As a result, he brought his to the hospital at [facility] and the patient was admitted on 06/21/2022 secondary to sepsis, shortness of breath, acute delirium, pneumonia, right renal stones and obstructive pyelonephritis. Metabolic lab performed on 06/22/2022 revealed an elevated white count of 34.6 with neutrophil shift elevation of 29.1 and elevated monocytes at 1.7. H&H were decreased at 11.4 and 36.9 respectively and red blood cell count was decreased at 3.7. Platelet count was within normal limits at 142,000. MCV was within normal limits at 98.4. The patient was started on IV antibiotics with marked improvement in her symptoms. But, patient continued to display some sleepiness and therefore a noncontrast head CT scan was obtained on 06/25/2022. The head CT scan revealed acute parenchymal bleed in the right inferior/lateral temporal lobe measuring 10 x 8 cm with small amounts of surrounding edema. There was reports that the blood extended into the right temporal/occipital lobe with effacement of the sulci as well as edema in the right temporal and occipital lobes. No midline shift or hydrocephalus was reported and no tonsillar herniation. In view of the abnormal CT scan findings a neurology consult was obtained. I was contacted by . I spoke with Dr. Graham and recommended CT angiogram of the head and neck as well as head MRI to better assess the hemorrhage reported on the noncontrasted CT scan performed on 06/25/2022. Results of the CT angiogram and head MRI were pending at the time of this dictation. Upon neurological evaluation of the patient this evening, the patient is sitting on the bedside she is alert and denies headaches or any other type pain. She is oriented to person place and situation. Her speech is fluent. Head atraumatic, motor testing 5/5 bilaterally and nonfocal. Visual harris appear to be full and pupils 4 mm round reactive to light and accommodation. Extraocular movements intact. There were no nystagmus observed on extraocular movements. And no obvious facial weakness. Cranial nerves II through XII grossly intact. Plantar responses flexor bilaterally. Sensory examination intact to gross modalities. The treatment plan was discussed with the patient and the and I will await the official results of the CT angiogram and head MRI. I informed the and the patient that if the imaging studies are suggestive of aneurysm we will transfer the patient to a facility with neurosurgical coverage. The patient's and the patient agree with this plan. Past medical history: Type 2 diabetes mellitus Hypertension controlled with diet Knee surgery Hypothyroidism Hyperlipidemia Glaucoma Diverticulosis of large intestines without perforation Drug allergies: Ibuprofen which resulted in shortness of breath Home medications: Latanoprost ophthalmic eyedrops 0.005% 1 drop in each eye at bedtime Synthroid 100 mcg p.o. every morning Metformin 500 mg p.o. twice daily Review of Systems General: Reports: 10 or more systems reviewed and unremarkable except in HPI and below Medications/Allergies Home Medications Medication Instructions Recorded Confirmed Last Taken Type latanoprost 0.005 % eye drops 1 drp ophthalmic (eye) BEDTIME 06/20/21 06/21/22 10/04/21 History naproxen 500 mg tablet 500 mg PO BID PRN Pain 06/20/21 06/21/22 09/21/21 History One touch mini test strips #100 ea 03/14/22 06/21/22 Unknown Rx ciprofloxacin HCl 500 mg tablet 500 mg PO Q12H 7 days #14 tabs 06/20/22 06/21/22 06/20/22 Rx levothyroxine 100 mcg tablet 100 mcg PO QAM 06/21/22 06/21/22 Unknown History metformin 500 mg tablet 500 mg PO BID 06/21/22 06/21/22 Unknown History Allergies Allergy/AdvReac Type Severity Reaction Status Date / Time ibuprofen [From Motrin] Allergy Mild SOB Verified 06/21/22 08:01 Current Medications Generic Name Dose Route Start Last Admin Trade Name Freq PRN Reason Stop Dose Admin Acetaminophen 650 mg 06/21/22 02:38 06/25/22 11:28 Acetaminophen 325 Mg Tablet PO 650 mg Q6H PRN Administration Mild/Mod Pain Or Temp >/= 101 Albuterol/Ipratropium 3 ml 06/22/22 14:00 06/25/22 14:30 Ipratropium-Albuterol 3 Ml Neb INHALATION 3 ml Q6H.RESP MERRITT Administration Enoxaparin Sodium 40 mg 06/21/22 17:45 06/24/22 17:54 Enoxaparin 40 Mg/0.4 Ml Syringe SUBCUT 40 mg Q24H MERRITT Administration Insulin Human Lispro 0 unit 06/22/22 18:00 06/25/22 13:11 Insulin Lispro 100 Unit/1 Ml SUBCUT 4 unit TIDWM MERRITT Administration Protocol Latanoprost 1 drop 06/21/22 09:00 06/25/22 09:32 Latanoprost 0.005% Op Soln 2.5 Ml Btl EYE-BOTH 1 drop DAILY MERRITT Administration Levothyroxine Sodium 100 mcg 06/21/22 09:00 06/25/22 09:31 Levothyroxine 100 Mcg Tablet PO 100 mcg DAILY MERRITT Administration Senna/Docusate Sodium 1 tab 06/25/22 09:00 06/25/22 09:32 Sennosides-Docusate Tablet PO 1 tab DAILY MERRITT Administration PFSH Acute PFSH: Medical History Acute lumbar myofascial strain Contracture of right knee Diabetes mellitus Essential hypertension Family history of colon cancer in father Glaucoma High cholesterol History of calculus of gallbladder History of colon polyps Colonoscopy on 09/18/[address] Cronin with polyps removed History of COVID-2019 Hypothyroidism Obesity (BMI 30-39.9) Restrictive lung disease secondary to obesity Trigger finger (acquired) Well adult health check Surgical History H/O knee surgery H/O tubal ligation History of carpal tunnel surgery History of laparoscopic cholecystectomy Family History Father Cancer Colon Other Diabetes Social History Smoking and tobacco status: former smoker Female Reproductive History: Para: 4 Spontaneous abortions: No Vitals/I&O/Wt Last Vital Signs Temp 98.0 F 06/25/22 08:00 Pulse 71 06/25/22 14:00 Resp 18 06/25/22 14:00 BP 145/85 06/25/22 12:00 Pulse Ox 96 06/25/22 14:00 O2 Del Method Nasal Cannula 06/25/22 14:00 O2 Flow Rate 2 06/25/22 14:00 06/25/22 06/25/22 06/25/22 06:59 14:59 22:59 Intake Total 350 / 1350 290 / 290 Output Total 125 / 125 Balance 350 / 550 165 / 165 Physical Exam Narrative: The patient is alert and oriented x3. Speech fluent. Head atraumatic. Neck supple without obvious bruits. Cranial nerves II through XII intact. Pupils 4 mm bilaterally. Pupils round reactive to light and accommodation. Extraocular movements intact. Visual harris appear to be full via confrontation. Motor examination 5/5 bilaterally. Deep tendon reflexes grossly symmetrical plantar responses flexor bilaterally. There is no clonus. Sensory examination intact to touch. Throat clear. Lungs clear. Heart regular rhythm and rate. Extremities were negative for clubbing cyanosis or edema Urinary Catheter Management: Woody: Cath Placed During This Visit: yes, but has since been removed by the nurse Reason for Continuing Indwelling Catheter: Decision to DC Catheter Urinary Catheter Date of Insertion: 06/21/22 Urinary Catheter Time of Insertion: 02:26 Date Urinary Catheter Removed: 06/24/22 Time Urinary Catheter Discontinued: 11:30 Data 06/25/22 06:05 06/25/22 06:05 Micro: Microbiology 06/24/22 18:30 MRSA Culture - Final Nose A&P Assessment and plan (1) Hemorrhage of right temporal lobe: (2) Acute delirium: Plan Assessment: 1. Acute right parenchymal bleed in the right inferior/lateral temporal lobe with small amount of edema measuring 10 x 8 mm extending into the right temporal/occipital lobe with effacement of the sulci and edema in the right temporal lobe and right occipital lobe without midline shift or hydrocephalus or herniation. 2. Renal stone with acute pyelonephritis 3. Hypertension treated with diet 4. Type 2 diabetes mellitus 5. Glaucoma 5. Acute encephalopathy, improving Plan: 1. Agree with current treatment plan 2. Continue to monitor neurological condition 3. Follow-up results of head MRI and CT angiogram of the head and neck 4. Recommend referral to a facility with neurosurgery coverage if the imaging studies are consistent with aneurysm rupture 5. We will continue to follow Consult Attestations Medical Necessity Statement: The patient was evaluated by neurology for right temporal hemorrhage with extension into the right occipital lobe Coding Level of Care Code 46717 Diagnoses Hemorrhage of right temporal lobe I61.1 Acute delirium R41.0 Time Spent (min) 30
[2022-06-25 16:58] LABS: Glucose Point of Care 111 mg/dL (70-110)
[2022-06-25] MEDS: labetalol 200 mg Tablet 100 MG PO (17:58)
[2022-06-25] MEDS: amoxicillin-clav 875-125 mg Tablet 1 TAB PO (17:58)
[2022-06-25 20:45] LABS: Glucose Point of Care 279 mg/dL (70-110)
[2022-06-26] VITALS (10 sets, daily range): BP systolic 92–117; BP diastolic 58–76; PULSE 74–85; RESP 15–16; TEMP 36.5–36.8; O2SAT 92–98
[2022-06-26] MEDS: acetaminophen 325 mg Tablet 650 MG PO ×2 (00:46→10:25)
[2022-06-26] MEDS: ipratropium-albuterol 3 mL Neb INHALATION ×3 (01:27→14:05)
[2022-06-26 04:45] LABS: Basophils # 0.1 10^3/uL (0.0-0.1); Basophils % 0.5 %; Eosinophils # 0.6 10^3/uL (0.0-0.8); Eosinophils % 5.3 %; Hematocrit 40.4 % (37.0-47.0); Hemoglobin 12.8 g/dL (11.5-15.3); Lymphocytes # 2.2 10^3/uL (0.8-4.8); Lymphocytes % 19.3 %; Mean Corpuscular HGB Conc 31.7 g/dL (30.0-36.0); Mean Corpuscular Hemoglobin 29.6 pg (28.0-34.0); Mean Corpuscular Volume 93.5 fl (81-99); Mean Platelet Volume 10.5 fL (7.4-10.4); Monocytes # 1.3 10^3/uL (0.2-0.9); Monocytes % 10.9 %; Neutrophils # 7.19 10^3/uL (1.8-7.7); Neutrophils % 62.3 %; Nucleated Red Blood Cells % 0 %; Platelet Count 185 10^3/cmm (130-400); Red Blood Count 4.32 10^6/uL (4.1-5.3); White Blood Count 11.6 10^3/uL (4.0-10.0)
[2022-06-26 05:10] LABS: Anion Gap 14.5 (5-19); Blood Urea Nitrogen 9 mg/dL (8-23); Calcium 10.3 mg/dL (8.5-10.5); Carbon Dioxide 26 mmol/L (22-29); Chloride 102 mmol/L (98-107); Glomerular Filtration Rate 221.9 mL/min (90-130); Glucose 144 mg/dL (65-115); Osmolality Calculated 289 mOsm/kg (285-295); Potassium 3.5 mmol/L (3.5-5.1); Sodium 139 mmol/L (136-145)
[2022-06-26 06:45] LABS: Glucose Point of Care 140 mg/dL (70-110)
--- NOTE | 2022-06-26 08:00 | PM.PN ---
Subjective Subjective: Jenny Lopez is a 67 year old female with a history of type 2 diabetes mellitus, hypertension controlled with diet, and history of knee surgeries.? According to the patient's who was at the patient's bedside this evening, the patient felt sick on 06/21/2022 and she was complaining of feeling cold and was shivering and was experiencing nausea and vomiting.? As a result, he brought his to the hospital at [facility] and the patient was admitted on 06/21/2022 secondary to sepsis, shortness of breath, acute delirium, pneumonia, right renal stones and obstructive pyelonephritis.? Metabolic lab performed on 06/22/2022 revealed an elevated white count of 34.6 with neutrophil shift elevation of 29.1 and elevated monocytes at 1.7.? H&H were decreased at 11.4 and 36.9 respectively and red blood cell count was decreased at 3.7.? Platelet count was within normal limits at 142,000.? MCV was within normal limits at 98.4.? The patient was started on IV antibiotics with marked improvement in her symptoms.? But, patient continued to display some sleepiness and therefore a noncontrast head CT scan was obtained on 06/25/2022.? The head CT scan revealed acute parenchymal bleed in the right inferior/lateral temporal lobe measuring 10 x 8 cm with small amounts of surrounding edema.? There was reports that the blood extended into the right temporal/occipital lobe with effacement of the sulci as well as edema in the right temporal and occipital lobes.? No midline shift or hydrocephalus was reported and no tonsillar herniation.? In view of the abnormal CT scan findings a neurology consult was obtained.? I was contacted by Dr. Graham.? I spoke with Dr. Graham and recommended CT angiogram of the head and neck as well as head MRI to better assess the hemorrhage reported on the noncontrasted CT scan performed on 06/25/2022.? Results of the CT angiogram revealed no obvious aneurysm and head MRI correlated with the findings reported on noncontrast head CT. Although neurologically the patient was stable, I spoke with Dr. Graham about obtaining a four-vessel cerebral arteriogram to exclude aneurysm since there was report of subarachnoid blood. Since [facility] do not perform four-vessel cerebral arteriogram the patient will be transferred to a facility that performs four-vessel cerebral arteriograms to confirm or exclude aneurysm. This morning the patient was doing well she was without complaints. The patient is sitting on the right side of her bed this morning. She is alert and denies headaches or any other type pain.? She is oriented to person place and situation.? Her speech is fluent.? Head atraumatic,? motor testing 5/5 bilaterally and nonfocal.? Visual harris appear to be full and pupils 4 mm round reactive to light and accommodation.? Extraocular movements intact.? There were no nystagmus observed on extraocular movements.? And no obvious facial weakness.? Cranial nerves II through XII grossly intact.? Plantar responses flexor bilaterally.? Sensory examination intact to gross modalities.? The treatment plan was discussed with the patient this morning as well as the results of her CT angiogram and head MRI performed on 06/25/2022. Past medical history: Type 2 diabetes mellitus Hypertension controlled with diet Knee surgery Hypothyroidism Hyperlipidemia Glaucoma Diverticulosis of large intestines without perforation Drug allergies: Ibuprofen which resulted in shortness of breath Home medications: Latanoprost ophthalmic eyedrops 0.005% 1 drop in each eye at bedtime Synthroid 100 mcg p.o. every morning Metformin 500 mg p.o. twice daily Review of systems: The patient denied headaches, facial weakness or numbness, patient denies swallowing difficulty, neck pain, visual difficulty, chest pain, shortness of breath, abdominal pain or extremity pain or back pain. Vitals/I&O/Wt Last Vital Signs Temp 97.7 F 06/26/22 03:53 Pulse 78 06/26/22 07:36 Resp 16 06/26/22 07:36 BP 109/69 06/26/22 03:53 Pulse Ox 98 06/26/22 07:36 O2 Del Method Nasal Cannula 06/26/22 07:36 O2 Flow Rate 2 06/26/22 07:36 06/25/22 06/26/22 06/26/22 22:59 06:59 14:59 Intake Total 240 / 530 Balance 240 / 405 Physical Exam Narrative: The patient is alert and oriented x3.? Speech fluent.? Head atraumatic.? Neck supple without obvious bruits.? Cranial nerves II through XII intact.? Pupils 4 mm bilaterally.? Pupils round reactive to light and accommodation.? Extraocular movements intact.? Visual harris appear to be full via confrontation.? Motor examination 5/5 bilaterally.? Deep tendon reflexes grossly symmetrical plantar responses flexor bilaterally.? There is no clonus.? Sensory examination intact to touch.? Throat clear.? Lungs clear.? Heart regular rhythm and rate.? Extremities were negative for clubbing cyanosis or edema Urinary Catheter Management: Woody: Cath Placed During This Visit: yes, but has since been removed by the nurse Reason for Continuing Indwelling Catheter: Decision to DC Catheter Urinary Catheter Date of Insertion: 06/21/22 Urinary Catheter Time of Insertion: 02:26 Date Urinary Catheter Removed: 06/24/22 Time Urinary Catheter Discontinued: 11:30 Data 06/26/22 04:15 06/26/22 04:15 Micro: Microbiology 06/20/22 23:32 Blood Culture - Final Blood NO GROWTH AFTER 5 DAYS 06/20/22 23:39 Blood Culture - Final Blood NO GROWTH AFTER 5 DAYS 06/24/22 18:30 MRSA Culture - Final Nose A&P Assessment and plan (1) Hemorrhage of right temporal lobe: Plan Assessment: 1.? Acute right parenchymal bleed in the right inferior/lateral temporal lobe with small amount of edema measuring 10 x 8 mm extending into the right temporal/occipital lobe with effacement of the sulci and edema in the right temporal lobe and right occipital lobe without midline shift or hydrocephalus or herniation. 2.? Renal stone with acute pyelonephritis 3.? Hypertension treated with diet 4.? Type 2 diabetes mellitus 5.? Glaucoma 5.? Acute encephalopathy, improving Plan: 1.? Agree with current treatment plan 2.?Continue to monitor neurological condition 3.?Recommend referral to a facility with neurosurgery coverage and facility that has the capacity to perform four-vessel cerebral arteriograms in order to confirm or exclude aneurysm rupture since the MRI and CT studies performed on the patient's brain suggested subarachnoid hemorrhage in the right temporal and occipital regions Attestations Medical Necessity Statement*: The patient was evaluated by neurology secondary to acute right temporal/occipital hemorrhage with edema Coding Level of Care Code 21255 Diagnoses Hemorrhage of right temporal lobe I61.1
[2022-06-26] MEDS: sennosides-docusate Tablet 1 TAB PO (08:37)
[2022-06-26] MEDS: levothyroxine 100 mcg Tablet PO (08:37)
[2022-06-26] MEDS: amoxicillin-clav 875-125 mg Tablet 1 TAB PO (08:37)
[2022-06-26] MEDS: latanoprost 0.005% Op Soln 2.5 mL Btl 1 DROP EYE-BOTH (08:38)
[2022-06-26 11:42] LABS: Glucose Point of Care 307 mg/dL (70-110)
--- NOTE | 2022-06-26 13:02 | PM.TDS ---
Transfer Summary Providers Date of Admission: 06/21/22 03:24 Date of Discharge/Transfer: 06/26/22 Attending Provider at Admission: Wei Gill MD Attending Provider at Transfer: Wei Gill MD Primary Care Provider: Madhu Felder MD Transfer Plans: Anticipated date of transfer: 06/26/22. Diagnoses at Discharge Discharge Diagnosis (1) Hemorrhage of right temporal lobe: Status: Acute Reason for Visit Reason for Visit Sob, chills, vomiting Hospital Course Hospital Course 67-year-old female who was admitted to [facility] on 06/21 for sepsis related to obstructive urolithiasis, UTI without any signs of septic shock, she was managed with IV antibiotics, Dr. 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 Patient has not remained hypertensive, no recent trauma, for her spontaneous bleed we have not found the culprit vessel, CTA head and neck unremarkable, MRI head did not show any midline shift or worsening of bleeding I have not received any reports of patient being anoxic during her procedure at the time of admission, not sure about the flare detected on the MRI of the head bilaterally on the cortical area Patient has been evaluated by neurologist Dr. Rios Patient will need four-vessel arteriogram, case has been presented to [facility] neurosurgeon Dr. Grider who has graciously excepted the patient, spoken with hospitalist nurse practitioner Accepting hospitalist Dr. Nova Echo: EF 55 to 60%, chest x-ray shows right hemidiaphragm, she will need sniff test Patient does have nocturnal hypoxemia, sleep apnea for which she will need sleep study outpatient Urine culture showing gram-negative tristan E. coli Afebrile, white count 11.6 down from 24,000 Creatinine is normal, sodium 139, potassium 3.5, creatinine 0.3, hemoglobin A1c 7.3, B12 level 1500, albumin 2.6, lactic acid normal. COVID PCR was requested because of her persistent confusion, it is negative E. coli pansensitive she is sensitive to levofloxacin, cephalosporins, penicillins Physical Exam Narrative: NIH 0 Awake and alert Currently on room air Pleasant and cooperative GCS 15 Abdomen soft Pulse 76 blood pressure 92/58mmhg Urinary Catheter Management: Woody: Cath Placed During This Visit: yes, but has since been removed by the nurse Reason for Continuing Indwelling Catheter: Decision to DC Catheter Urinary Catheter Date of Insertion: 06/21/22 Urinary Catheter Time of Insertion: 02:26 Date Urinary Catheter Removed: 06/24/22 Time Urinary Catheter Discontinued: 11:30 TS Data Studies Completed and Pending Pending at discharge Category Date Time Status Sputum Culture and Gram Stain AM LABS Lab 06/25/22 04:00 Uncollected Labs from last 24 hours 06/26/22 06/26/22 06/26/22 11:32 06:37 04:15 WBC RBC Hgb Hct MCV MCH MCHC RDW Plt Count MPV Neut % (Auto) Lymph % (Auto) Dawes % (Auto) Eos % (Auto) Baso % (Auto) Neut # (Auto) Lymph # (Auto) Dawes # (Auto) Eos # (Auto) Baso # (Auto) Nucleated RBC % (auto) Nucleated RBCs # Sodium 139 Potassium 3.5 Chloride 102 Carbon Dioxide 26 Anion Gap 14.5 BUN 9 Creatinine 0.3 L GFR Calculation 221.9 H Glucose 144 H POC Glucose 307 H 140 H Calculated Osmolality 289 Calcium 10.3 Ammonia Vitamin B12 06/26/22 06/25/22 06/25/22 04:15 20:32 16:42 WBC 11.6 H RBC 4.32 Hgb 12.8 Hct 40.4 MCV 93.5 MCH 29.6 MCHC 31.7 RDW 13.0 Plt Count 185 MPV 10.5 H Neut % (Auto) 62.3 Lymph % (Auto) 19.3 Dawes % (Auto) 10.9 Eos % (Auto) 5.3 Baso % (Auto) 0.5 Neut # (Auto) 7.19 Lymph # (Auto) 2.2 Dawes # (Auto) 1.3 H Eos # (Auto) 0.6 Baso # (Auto) 0.1 Nucleated RBC % (auto) 0 Nucleated RBCs # 0.0 Sodium Potassium Chloride Carbon Dioxide Anion Gap BUN Creatinine GFR Calculation Glucose POC Glucose 279 H 111 H Calculated Osmolality Calcium Ammonia Vitamin B12 06/25/22 06/25/22 13:17 06:05 WBC RBC Hgb Hct MCV MCH MCHC RDW Plt Count MPV Neut % (Auto) Lymph % (Auto) Dawes % (Auto) Eos % (Auto) Baso % (Auto) Neut # (Auto) Lymph # (Auto) Dawes # (Auto) Eos # (Auto) Baso # (Auto) Nucleated RBC % (auto) Nucleated RBCs # Sodium Potassium Chloride Carbon Dioxide Anion Gap BUN Creatinine GFR Calculation Glucose POC Glucose Calculated Osmolality Calcium Ammonia 42 Vitamin B12 1565 H Completed Studies During Hospitalization Category Date Time Status CT abdomen pelvis w con* [id number] Stat Cat Scan 06/20/22 23:[address] chest wo con [id number] Routine Cat Scan 06/24/22 11:[address] head wo con* [id number] Routine Cat Scan 06/25/22 12:24 Completed CTA head neck [CT angio headneck* [id number]] Stat Cat Scan 06/25/22 13:47 Completed XR KUB [id number] Routine Exams 06/25/22 07:07 Completed XR chest 1V portable [id number] Stat Exams 06/20/22 23:03 Completed XR chest 1V portable [id number] Stat Exams 06/23/22 22:19 Completed MR head wo con* [id number] Routine MRI 06/25/22 13:47 Completed CV. echo complete* [id number] Routine Ultrasound 06/24/22 22:19 Completed Laboratory Last Values WBC 11.6 10^3/uL (4.0-10.0) H 06/26/22 04:15 RBC 4.32 10^6/uL (4.1-5.3) 06/26/22 04:15 Hgb 12.8 g/dL (11.5-15.3) 06/26/22 04:15 Hct 40.4 % (37.0-47.0) 06/26/22 04:15 MCV 93.5 fl (81-99) 06/26/22 04:15 MCH 29.6 pg (28.0-34.0) 06/26/22 04:15 MCHC 31.7 g/dL (30.0-36.0) 06/26/22 04:15 RDW 13.0 % (12.1-15.1) 06/26/22 04:15 Plt Count 185 10^3/cmm (130-400) 06/26/22 04:15 MPV 10.5 fL (7.4-10.4) H 06/26/22 04:15 Neut % (Auto) 62.3 % 06/26/22 04:15 Lymph % (Auto) 19.3 % 06/26/22 04:15 Dawes % (Auto) 10.9 % 06/26/22 04:15 Eos % (Auto) 5.3 % 06/26/22 04:15 Baso % (Auto) 0.5 % 06/26/22 04:15 Neut # (Auto) 7.19 10^3/uL (1.8-7.7) 06/26/22 04:15 Lymph # (Auto) 2.2 10^3/uL (0.8-4.8) 06/26/22 04:15 Dawes # (Auto) 1.3 10^3/uL (0.2-0.9) H 06/26/22 04:15 Eos # (Auto) 0.6 10^3/uL (0.0-0.8) 06/26/22 04:15 Baso # (Auto) 0.1 10^3/uL (0.0-0.1) 06/26/22 04:15 Nucleated RBC % (auto) 0 % 06/26/22 04:15 Total Counted 100 (0-100) 06/22/22 04:05 Atypical Lymphs % 0.0 % (0-5) 06/22/22 04:05 Absolute Neutrophils 29.1 10^3/cmm (1.4-6.5) H 06/22/22 04:05 Segmented Neutrophils 74 % 06/22/22 04:05 Abs Segm Neuts (Man) 25.6 10/cmm (1.6-7.1) H 06/22/22 04:05 Band Neutrophils 10.0 % 06/22/22 04:05 Abs Band Neuts (Man) 3.5 10^3/cmm (0.0-1.2) H 06/22/22 04:05 Absolute Lymphocytes 2.4 10^3/cmm (1.2-3.4) 06/22/22 04:05 Lymphocytes (Manual) 7 % 06/22/22 04:05 Monocytes (Manual) 5.0 % 06/22/22 04:05 Absolute Monocytes 1.7 10^3/cmm (0.1-0.6) H 06/22/22 04:05 Eosinophils (Manual) 0 % 06/22/22 04:05 Absolute Eosinophils 0.0 10^3/cmm (0.0-0.7) 06/22/22 04:05 Basophils (Manual) 0.0 % 06/22/22 04:05 Absolute Basophils 0.0 10^3/cmm (0.0-0.2) 06/22/22 04:05 Metamyelocytes 3.0 % 06/22/22 04:05 Myelocytes 1.0 % 06/22/22 04:05 Nucleated RBCs # 0.0 /100WBC 06/26/22 04:15 Smudge Cells Trace 06/22/22 04:05 Toxic Granulation 1+ H 06/22/22 04:05 Toxic Vacuolation 1+ H 06/22/22 04:05 Platelet Estimate Normal (Normal) 06/22/22 04:05 Anisocytosis 1+ H 06/22/22 04:05 Macrocytosis 1+ H 06/22/22 04:05 Spherocytes 1+ 06/22/22 04:05 PT 14.50 SECONDS (12.1-14.9) 06/20/22 23:32 INR 1.10 (0.8-1.2) 06/20/22 23:32 Sodium 139 mmol/L (136-145) 06/26/22 04:15 Potassium 3.5 mmol/L (3.5-5.1) 06/26/22 04:15 Chloride 102 mmol/L (98-107) 06/26/22 04:15 Carbon Dioxide 26 mmol/L (22-29) 06/26/22 04:15 Anion Gap 14.5 (5-19) 06/26/22 04:15 BUN 9 mg/dL (8-23) 06/26/22 04:15 Creatinine 0.3 mg/dL (0.5-0.9) L 06/26/22 04:15 GFR Calculation 221.9 mL/min (90-130) H 06/26/22 04:15 Glucose 144 mg/dL (65-115) H 06/26/22 04:15 POC Glucose 307 mg/dL (70-110) H 06/26/22 11:32 Calculated Osmolality 289 mOsm/kg (285-295) 06/26/22 04:15 Lactic Acid 5.6 mmol/L (0.5-2.2) H* 06/20/22 23:32 Lactic Acid (Sepsis) 3.2 mmol/L (0.5-2.2) H 06/21/22 03:19 Calcium 10.3 mg/dL (8.5-10.5) 06/26/22 04:15 Magnesium 1.6 mg/dL (1.7-2.3) L 06/22/22 04:05 Total Bilirubin 0.3 mg/dL (0.15-1.2) 06/25/22 06:05 AST 15 U/L (0-32) 06/25/22 06:05 ALT 16 U/L (0-33) 06/25/22 06:05 Alkaline Phosphatase 113 U/L (35-105) H 06/25/22 06:05 Ammonia 42 umol/L (11-51) 06/25/22 13:17 NT-Pro-B Natriuret Pep 548 pg/mL (0-125) H 06/20/22 23:32 Total Protein 5.9 g/dL (6.6-8.7) L 06/25/22 06:05 Albumin 2.6 g/dL (3.5-5.2) L 06/25/22 06:05 Globulin 3.3 g/dL (1.3-4.6) 06/25/22 06:05 Vitamin B12 1565 pg/mL (232-1245) H 06/25/22 06:05 Urine Color Yellow (Yellow) 06/21/22 00:53 Urine Appearance Hazy (CLEAR) A 06/21/22 00:53 Urine pH 7 (5-7) 06/21/22 00:53 Ur Specific [place] 1.005 (1.005-1.030) 06/21/22 00:53 Urine Protein 1+ (Negative) H 06/21/22 00:53 Urine Glucose (UA) Norm (Normal) 06/21/22 00:53 Urine Ketones Negative (Negative) 06/21/22 00:53 Urine Blood 3+ (Negative) H 06/21/22 00:53 Urine Nitrate Negative (Negative) 06/21/22 00:53 Urine Bilirubin Neg (Negative) 06/21/22 00:53 Urine Urobilinogen 1 mg/dL (Negative) H 06/21/22 00:53 Ur Leukocyte Esterase 2+ (Negative) H 06/21/22 00:53 Urine RBC 10-15 /hpf (0-2) H 06/21/22 00:53 Urine WBC 10-15 /hpf (0-5) H 06/21/22 00:53 Ur Squamous Epith Cells 0-4 /hpf (0-5) H 06/21/22 00:53 Amorphous Sediment Not Reportable 06/21/22 00:53 Urine Bacteria 2+ /hpf (NONE) H 06/21/22 00:53 Coronavirus 229E (PCR) Not detected (NOT DETECT) 06/24/22 18:30 SARS-CoV-2 (PCR) Not detected (NOT DETECT) 06/24/22 18:30 SARS-CoV-2 Ag (Rapid) Negative (Negative) 06/20/22 23:23 Radiology Impressions Abdomen/Pelvis CT 06/20/22 23:32 IMPRESSION: 1. Partially obstructing 9 mm calculus at the level of the right ureteropelvic junction. 2. Simple cyst on the posterior aspect right kidney measuring 1.8 cm. No further workup needed. 3. Mild diverticulosis of the sigmoid colon 4. Normal appendix 5. Small bladder diverticulum seen on the right posteriorly measuring 11 mm. COMMENTS: Consistent with the [employer]'s Incidental Findings Committee white paper (J Am David Radiol 2018): Any incidental renal lesion less than 1 cm or classified as too small to characterize, or any incidental cystic renal lesion characterized as simple-appearing, is likely benign. No follow-up imaging is recommended for these lesions per consensus recommendations based on imaging criteria. Chest X-Ray 06/23/22 22:19 IMPRESSION: 1. Prominent pulmonary cyndy again noted possibly representing prominent lymph nodes. 2. Patchy and hazy opacities are seen in the hemithoraces bilaterally appearing more confluent today compared with 06/20/2022, findings that may represent a worsening bilateral patchy interstitial pneumonia. Chest CT 06/24/22 11:09 IMPRESSION: 1. Marked decrease in lung volumes and poor inspiration. 2. Extensive bilateral pulmonary opacifications. Differential includes pneumonitis, pulmonary edema and pneumonia. 3. Elevated RIGHT diaphragm. 4. Moderate cardiomegaly. KUB X-Ray 06/25/22 07:07 IMPRESSION: Satisfactory right ureteral stent position. No visible stone. Head CT 06/25/22 12:24 IMPRESSION: 1. Acute parenchymal hemorrhage measuring 10 x 8 mm centered in the inferior lateral RIGHT temporal lobe with a small amount of surrounding edema. 2. There is additional blood products which may be cortical etiology of subarachnoid in the RIGHT occipital and temporal region. There is sulcal effacement and edema. No midline shift. 3. Patient will need to be further evaluated to determine etiology. Evaluate for possible mass or vascular malformation. This may be a spontaneous hemorrhage. Notified Kristina Graham MD at 06/25/2022 1:04 PM. Head MRI 06/25/22 13:47 IMPRESSION: Very limited examination due to confusion and motion. 1. Stable intraparenchymal hematoma in RIGHT posterior temporal lobe with mild surrounding edema. 2. Increased FLAIR signal within the bilateral frontal lobes RIGHT greater than LEFT, RIGHT occipital lobe, RIGHT temporal lobe, and RIGHT parietal lobe suspicious for subarachnoid hemorrhage. Susceptibility weighted images show some areas of corresponding hemosiderin in the bilateral occipital lobes with punctate areas of hemosiderin. 3. Differential considerations include aneurysmal subarachnoid hemorrhage, posttraumatic subarachnoid hemorrhage, PRES, vasculitis and amyloid in a patient this age. CTa is pending. 4. Mild effacement of the overlying sulci. No hydrocephalus. 5. No other acute findings. Notified Kristina Graham MD at 06/25/2022 4:41 PM. Head/Neck CTA 06/25/22 13:47 IMPRESSION: 1. Redemonstrated 1 cm acute parenchymal hematoma within the inferolateral right temporal lobe. No prominent feeding vessels seen communicating with the area of hemorrhage. 2. Trace subarachnoid hemorrhage again noted in the right parietal and temporal lobes. 3. No large vessel occlusion. IMPRESSION: No stenosis or occlusion. REFERENCES: NASCET CRITERIA. The degree of stenosis in the cervical segment of the internal carotid artery is based on NASCET criteria. Normal is no stenosis. Mild is less than 50% stenosis. Moderate is 50-69% stenosis. Severe is 70% to 99% stenosis. Total occlusion is no detectable patent lumen. Recent Clincial Data Last Vital Signs Temp 98.2 F 06/26/22 08:58 Pulse 76 06/26/22 12:00 Resp 16 06/26/22 12:00 BP 92/58 06/26/22 12:00 Pulse Ox 96 06/26/22 12:00 O2 Del Method Nasal Cannula 06/26/22 12:00 O2 Flow Rate 2 06/26/22 08:58 Vital Signs Temp Pulse Resp BP Pulse Ox O2 Del Method O2 Flow Rate 06/26/22 12:00 76 16 92/58 96 Nasal Cannula 06/26/22 08:00 2 06/26/22 08:58 98.2 F 83 16 114/76 95 Nasal Cannula 2 06/26/22 07:36 78 16 98 Nasal Cannula 2 06/26/22 05:54 77 06/26/22 03:53 97.7 F 74 15 109/69 92 Room Air 06/26/22 01:30 78 06/26/22 01:27 76 16 96 Nasal Cannula 2 Intake & Output/Weight 06/24/22 06/25/22 06/26/22 06/27/22 06:59 06:59 06:59 06:59 Intake Total 870 / 870 1350 / 1350 530 / 530 240 / 240 Output Total 7650 / 7650 800 / 800 125 / 125 Balance -6780 / -6780 550 / 550 405 / 405 240 / 240 Vitals Last Vital Signs Temp 98.2 F 06/26/22 08:58 Pulse 76 06/26/22 12:00 Resp 16 06/26/22 12:00 BP 92/58 06/26/22 12:00 Pulse Ox 96 06/26/22 12:00 O2 Del Method Nasal Cannula 06/26/22 12:00 O2 Flow Rate 2 06/26/22 08:58 TS Medications Medications Acetaminophen (Acetaminophen 325 Mg Tablet) 650 mg PO Q6H PRN PRN Reason: Mild/Mod Pain Or Temp >/= 101 Last Admin: 06/26/22 10:25 Dose: 650 mg Albuterol/Ipratropium (Ipratropium-Albuterol 3 Ml Neb) 3 ml INHALATION Q6H.RESP MERRITT Last Admin: 06/26/22 07:35 Dose: 3 ml Amoxicillin/Clavulanate Potassium (Amoxicillin-Clav 875-125 Mg Tablet) 1 tab PO BID MERRITT; Protocol Last Admin: 06/26/22 08:37 Dose: 1 tab Dextrose (Dextrose 50% Syringe 50 Ml) 50 ml IVP PRN PRN; Protocol PRN Reason: hypoglycemia protocol Dextrose (Dextrose 50% Syringe 50 Ml) 25 ml IVP ONCE PRN; Protocol PRN Reason: hypoglycemia protocol Glucagon (Glucagon 1 Mg/Ml Inj 1 Ml) 1 mg IM ONCE PRN; Protocol PRN Reason: Adult Acute Hypoglycemia Prot. Insulin Human Lispro (Insulin Lispro 100 Unit/1 Ml) 0 unit SUBCUT TIDWM [facility]; Protocol Last Admin: 06/26/22 07:25 Dose: Not Given Labetalol HCl (Labetalol 200 Mg Tablet) 100 mg PO BID [facility] Last Admin: 06/26/22 10:20 Dose: Not Given Labetalol HCl (Labetalol 5 Mg/Ml Sdv 20ml) 10 mg IVP ONCE PRN PRN Reason: bp>150/90mmhg Lanolin (Lanolin Oint 7 Gm) 1 applic TOPICAL PRN PRN PRN Reason: DRYNESS Latanoprost (Latanoprost 0.005% Op Soln 2.5 Ml Btl) 1 drop EYE-BOTH DAILY [facility] Last Admin: 06/26/22 08:38 Dose: 1 drop Levothyroxine Sodium (Levothyroxine 100 Mcg Tablet) 100 mcg PO DAILY [facility] Last Admin: 06/26/22 08:37 Dose: 100 mcg Ondansetron HCl (Ondansetron 2 Mg/Ml Sdv 2 Ml) 4 mg IVP Q8H PRN PRN Reason: vomiting, or N/V if npo Senna/Docusate Sodium (Sennosides-Docusate Tablet) 1 tab PO DAILY [facility] Last Admin: 06/26/22 08:37 Dose: 1 tab Discontinued Medications Acetaminophen (Acetaminophen 500 Mg Tablet) 1,000 mg PO ONCE ONE Stop: 06/20/22 23:18 Last Admin: 06/20/22 23:39 Dose: 1,000 mg Dexamethasone (Dexamethasone 4 Mg/Ml Inj) Confirm Administered Dose 8 mg .ROUTE .STK-MED ONE Stop: 06/21/22 01:46 Enoxaparin Sodium (Enoxaparin 40 Mg/0.4 Ml Syringe) 40 mg SUBCUT Q24H [facility] Last Admin: 06/24/22 17:54 Dose: 40 mg Ephedrine Sulfate (Ephedrine 50 Mg/Ml Inj) Confirm Administered Dose 50 mg .ROUTE .[facility] ONE Stop: 06/21/22 02:16 Fentanyl (Fentanyl 50 Mcg/Ml Inj 2ml) Confirm Administered Dose 100 mcg .ROUTE .[facility] ONE Stop: 06/21/22 01:45 Furosemide (Furosemide 10 Mg/Ml Sdv 4ml) 40 mg IVP ONCE ONE Stop: 06/23/22 22:20 Last Admin: 06/23/22 22:30 Dose: 40 mg Furosemide (Furosemide 20 Mg Tablet) 20 mg PO ONCE ONE Stop: 06/25/22 12:31 Last Admin: 06/25/22 13:11 Dose: 20 mg Sodium Chloride (Sodium Chloride 0.9%) 1,000 mls @ 999 mls/hr IV .Q1H1M MERRITT Stop: 06/21/22 01:30 Last Infusion: 06/21/22 01:24 Dose: Infused Ceftriaxone Sodium 1,000 mg/ (Sodium Chloride) 50 mls @ 100 mls/hr IV ONCE ONE; Protocol Stop: 06/20/22 23:53 Last Infusion: 06/21/22 00:09 Dose: Infused Azithromycin 500 mg/ Sodium (Chloride) 250 mls @ 250 mls/hr IV ONCE ONE; Protocol Stop: 06/21/22 00:27 Last Infusion: 06/21/22 01:55 Dose: Infused Sodium Chloride (Sodium Chloride 0.9%) 500 mls @ 500 mls/hr IV ONCE ONE Stop: 06/21/22 01:14 Last Infusion: 06/21/22 01:23 Dose: Infused Lidocaine HCl (Xylocaine) Confirm Administered Dose 4 mls @ as directed .ROUTE .[facility] ONE Stop: 06/21/22 01:46 Albumin Human (Albumin) Confirm Administered Dose 12.5 gm in 250 mls @ as directed .ROUTE .[facility]-MED ONE Stop: 06/21/22 02:11 Sodium Chloride (Sodium Chloride 0.9%) 1,000 mls @ 150 mls/hr IV .Q6H40M [facility] Last Infusion: 06/22/22 20:04 Dose: Infused Ceftriaxone Sodium 1,000 mg/ (Sodium Chloride) 50 mls @ 100 mls/hr IV Q24H [facility]ERRITT; Protocol Piperacillin Sod/Tazobactam (Sod / Sodium Chloride) 50 mls @ 0 mls/hr [id number] CONT MERRITT; Protocol Piperacillin Sod/Tazobactam (Sod 3.375 gm/ Sodium Chloride) 50 mls @ 12.5 mls/hr IV Q8H [facility] Last Infusion: 06/25/22 10:27 Dose: Infused Magnesium Sulfate (Magnesium Sulfate Premix) 2 gm in 50 mls @ 50 mls/hr IV ONCE ONE Stop: 06/22/22 10:11 Last Infusion: 06/22/22 10:43 Dose: Infused Sodium Chloride (Sodium Chloride 0.9%) 1,000 mls @ 100 mls/hr IV .Q10H [facility] Last Infusion: 06/22/22 20:04 Dose: Infused Dextrose (D5w) 500 mls @ 100 mls/hr IV ONCE PRN; Protocol PRN Reason: Adult Acute Hypoglycemia Prot Vancomycin/PEG/NADA/Lysine/Water (Vancocin) 1,500 mg in 300 mls @ 200 mls/hr IV Q18H [facility] Last Infusion: 06/25/22 06:37 Dose: Infused Iohexol (Iohexol 350 Mg/Ml 500 Ml Btl (Per Ml)) 0 ml IV ONCE ONE Stop: 06/20/22 23:51 Last Admin: 06/20/22 23:50 Dose: 75 ml Lidocaine HCl (Lidocaine 2% Urojet 20 Ml) Confirm Administered Dose 20 ml .ROUTE .STK-MED ONE Stop: 06/21/22 01:37 Last Admin: 06/21/22 03:55 Dose: Not Given Ondansetron HCl (Ondansetron 2 Mg/Ml Sdv 2 Ml) 4 mg IVP ONCE ONE Stop: 06/20/22 23:25 Last Admin: 06/20/22 23:39 Dose: 4 mg Ondansetron HCl (Ondansetron 2 Mg/Ml Sdv 2 Ml) Confirm Administered Dose 4 mg .ROUTE .STK-MED ONE Stop: 06/21/22 01:44 Oxycodone/Acetaminophen (Oxycodone-Apap 5-325 Mg Tablet) 1 tab PO ONCE ONE Stop: 06/23/22 12:10 Last Admin: 06/23/22 12:32 Dose: 1 tab Piperacillin Sod/Tazobactam Sod (Piperacillin-Tazobactam 3.375 Gm Sdv) Confirm Administered Dose 3.375 gm .ROUTE .STK-MED ONE Stop: 06/23/22 16:27 Last Admin: 06/23/22 16:38 Dose: Not Given Potassium Chloride (Potassium Chloride Er 20 Meq Tablet) 40 meq PO ONCE ONE Stop: 06/25/22 12:31 Last Admin: 06/25/22 13:11 Dose: 40 meq Propofol (Propofol 10 Mg/Ml Sdv 20 Ml) Confirm Administered Dose 200 mg .ROUTE .STK-MED ONE Stop: 06/21/22 01:45 Rocuronium Anderson (Rocuronium 10 Mg/Ml Inj 5ml) Confirm Administered Dose 50 mg .ROUTE .STK-MED ONE Stop: 06/21/22 01:44 Succinylcholine Chloride (Succinylcholine 20 Mg/Ml Sdv 10ml) Confirm Administered Dose 200 mg .ROUTE .STK-MED ONE Stop: 06/21/22 01:44 Sugammadex Sodium (Sugammadex 200 Mg/2 Ml Sdv) Confirm Administered Dose 200 mg .ROUTE .STK-MED ONE Stop: 06/21/22 03:00 Allergies ibuprofen [From Motrin] Allergy (Mild, Verified 06/21/22 08:01) SOB Home Medications latanoprost 0.005 % eye drops 1 drp ophthalmic (eye) BEDTIME 06/20/21 [History Confirmed 06/21/22] naproxen 500 mg tablet 500 mg PO BID PRN Pain 06/20/21 [History Confirmed 06/21/22] One touch mini test strips #100 ea 03/14/22 [Rx Confirmed 06/21/22] ciprofloxacin HCl 500 mg tablet 500 mg PO Q12H 7 days #14 tabs 06/20/22 [Rx Confirmed 06/21/22] levothyroxine 100 mcg tablet 100 mcg PO QAM 06/21/22 [History Confirmed 06/21/22] metformin 500 mg tablet 500 mg PO BID 06/21/22 [History Confirmed 06/21/22] Discharge Plan Discharge Patient Disposition: Home Condition: Stable Prescriptions: New levofloxacin 750 mg tablet 750 mg PO DAILY 14 Days Qty: 14 0RF Continued latanoprost 0.005 % drops 1 drp ophthalmic (eye) BEDTIME Rx Instructions: each eye (DME) One touch mini test strips See Rx Instructions .Route .MEDSUPPLY Qty: 100 5RF Rx Instructions: As directed metformin 500 mg tablet 500 mg PO BID levothyroxine 100 mcg tablet 100 mcg PO QAM Discontinued ciprofloxacin HCl 500 mg tablet 500 mg PO Q12H 7 Days Qty: 14 0RF Rx Instructions: for 7 days (rx filled 06/20/22) naproxen 500 mg tablet 500 mg PO BID PRN (Reason: Pain) Hold Instructions: Resume on 10/09/21. Discharge Orders: Discharge Order (Routine); Ordered 06/26/22 Ordered By: Kristina Graham Other Ambulatory Orders: Sleep Study/Titration (Routine) Timeframe: 2 Weeks Facility: [facility] - Location: [facility] Ordered By: Kristina Graham Referrals: Jeancarlos Rios MD [Physician] - 1 month Madhu Felder MD [Primary Care Provider] - 07/12/22 8:45 am Wei Gill MD [Physician] - 2 weeks Discharge Diet: Cardiac Discharge Activity: Increase activity as tolerated Patient Instructions: Opioid Safety Transfer Attestations Time Spent in Transfer Care: greater than 30 min Quality Metrics Clinical Quality Measures [ No reported AMI, CVA or VTE this stay] Coding Level of Care Code Acute Code for Chg Fwd Diagnoses Hemorrhage of right temporal lobe I61.1
--- NOTE | 2022-06-26 13:41 | PC.SOCIAL ---
IMM Update pg 2 of IMM updated and reviewed w/ patient. Copy provided and Copy in chart dated and initialed.
[2022-06-26] MEDS: insulin lispro 100 unit/1 mL SUBCUT (13:50)
[2022-06-26] MEDS: lactated ringers 500 ML 999 ML IV (13:50)
== END 2022-06-26 16:49 | disposition short-term general hospital (02) | DRG 853 ==
LOC: ER 06-21 01:00 → OPS 06-21 01:36 → ICU 06-21 03:25 → MEDSURG 06-22 21:22
PROVIDERS: Internal Medicine; Admitting Provider Urology; Emergency Provider Emergency Medicine; PCP Family Medicine Adult Medicine; Visit Provider Urology
PROC: 0TJB8ZZ Inspection of Bladder, Via Natural or Artificial Opening Endoscopic (ICD-10-PCS; CPT 52000; principal; 2022-06-21 01:45)
PROC: 0T768DZ Dilation of Right Ureter with Intraluminal Device, Via Natural or Artificial Opening Endoscopic (ICD-10-PCS; CPT 50605; 2022-06-21 01:45)
DX: A41.9 Sepsis, unspecified organism (principal); G93.41 Metabolic encephalopathy; I61.1 Nontraumatic intracerebral hemorrhage in hemisphere, cortical; J18.9 Pneumonia, unspecified organism; N20.1 Calculus of ureter; N30.00 Acute cystitis without hematuria; Z68.41 Body mass index [BMI] 40.0-44.9, adult; F05 Delirium due to known physiological condition; E87.20 Acidosis, unspecified; N17.9 Acute kidney failure, unspecified; N30.20 Other chronic cystitis without hematuria; B96.20 Unspecified Escherichia coli [E. coli] as the cause of diseases classified elsewhere; Z79.84 Long term (current) use of oral hypoglycemic drugs; E11.9 Type 2 diabetes mellitus without complications; I10 Essential (primary) hypertension; Z86.16 Personal history of COVID-19; E03.9 Hypothyroidism, unspecified; E66.9 Obesity, unspecified; Z87.891 Personal history of nicotine dependence; K59.00 Constipation, unspecified; H40.9 Unspecified glaucoma
CPT/HCPCS: 36415; 36416; 70450; 70496; 70498; 70551; 71045; 71250; 74018; 74177; 80048; 80053; 81000; 81001; 82140; 82607; 82962; 83605; 83735; 83880; 85007; 85025; 85610; 87040; 87077; 87086; 87184; 87426; 87635; 87641; 93005; 93306; 94640; 96365; 96367; 96372; 96376; 99285; C2625; J0330; J0456; J0696; J1100; J1650; J1815; J1940; J2405; J2543; J2704; J3010; J3370; J3475; J3490; J7030; J7040; J7050; J7120; P9045; Q9967

== ENCOUNTER → 2022-07-02 12:56 | Outpatient (BNVA) | payer MEDICARE, SELFPAY | PROVIDERS: PCP Family Medicine Adult Medicine; Visit Provider Psychiatry & Neurology Neurology | DX: I61.1 Nontraumatic intracerebral hemorrhage in hemisphere, cortical (principal); R51.9 Headache, unspecified; N10 Acute pyelonephritis; N20.0 Calculus of kidney; E11.39 Type 2 diabetes mellitus with other diabetic ophthalmic complication; H42 Glaucoma in diseases classified elsewhere; Z79.84 Long term (current) use of oral hypoglycemic drugs | CPT/HCPCS: 81000; 87086; 99213 ==

== ENCOUNTER 2022-07-11 15:00 | Outpatient (CLI) | payer MEDICARE, SELFPAY ==
--- NOTE | 2022-07-11 15:09 | XR_ITS ---
WS: [id number] Exam: XR KUB [id number] Date/Time of Exam: 07/11/2022 3:10 PM Reason For Exam: STONES Comparison 06/25/2022. Right-sided ureteral stent catheter in place in satisfactory location. A 12 x 6 mm calcification supe rimposes the lower pole of the right kidney and may represent a renal calculus. No sign of organ enla rgement. No bowel obstruction or free air. Degenerative changes of the lumbar spine and slight levosc oliosis. XR/XR KUB [id number] IMPRESSION: 1. Right ureteral stent catheter in place in satisfactory location unchanged. 2. 12 x 6 mm calcification superimposes the lower pole the right kidney and may represent a renal calculus.
== END 2022-07-11 15:01 | disposition home or self-care (01) ==
LOC: RAD 15:04
PROVIDERS: PCP Family Medicine Adult Medicine; Visit Provider Urology
DX: N20.1 Calculus of ureter (principal); N30.80 Other cystitis without hematuria; N11.1 Chronic obstructive pyelonephritis; Z96.0 Presence of urogenital implants; Z90.49 Acquired absence of other specified parts of digestive tract
CPT/HCPCS: 74018; 81003; 99214

== ENCOUNTER 2022-07-15 05:56 | Day surgery (SDC) | payer MEDICARE, SELFPAY ==
[2022-07-12 11:12] VITALS: BMI 35.8
--- NOTE | 2022-07-12 11:26 | P.ANESASSM_ITS ---
Pre-Anesthetic Assessment Height/Weight: Height 1.57 m Weight 88.904 kg Operation Date: 07/15/22 12:00 Proposed Procedures p []RIGHT: EXTRACORPOREAL SHOCKWAVE LITHOTRIPSY 46749, N20.1(Right) - Wei Gill MD Familial anesthetic complications: None Social No alcohol and No tobacco Exam alert, oriented x 3, clear to auscultation bilaterally and regular rate & rhythm Airway Mallampati: Class II Dentition: caps Metabolic Diabetes Mellitus, Hyperlipidemia, Morbid Obesity and Thyroid Disease Anesthetic Plan ASA status: 3 Anesthesia: General Risk of > 500 ml blood loss (7ml/kg in children): No Medications/Allergies Home Medications Medication Instructions Recorded Confirmed Last Taken Type latanoprost 0.005 % eye drops 1 drp ophthalmic (eye) BEDTIME 06/20/21 07/12/22 07/11/22 History One touch mini test strips #100 ea 03/14/22 07/12/22 Unknown Rx levothyroxine 100 mcg tablet 100 mcg PO QAM 06/21/22 07/12/22 07/12/22 History metformin 500 mg tablet 500 mg PO BID 06/21/22 07/12/22 07/12/22 History levetiracetam 750 mg tablet 750 mg PO BID 07/11/22 07/12/22 07/12/22 History acetaminophen 500 mg tablet 1,000 mg PO Q6H PRN Pain 07/12/22 07/12/22 07/12/22 History (Tylenol Extra Strength) levofloxacin 750 mg tablet 750 mg PO DAILY 07/12/22 07/12/22 07/12/22 History simvastatin 20 mg tablet 20 mg PO DAILY diabetes #90 tabs 07/12/22 07/12/22 07/12/22 Rx Allergies Allergy/AdvReac Type Severity Reaction Status Date / Time ibuprofen [From Motrin] Allergy Mild SOB Verified 07/12/22 11:05 [facility], [facility] Anesthesia Medical History (Updated 07/12/22 @ 09:29 by Madhu Felder MD) Acute cystitis Acute delirium Acute lumbar myofascial strain Contracture of right knee Cystitis cystica Diabetes mellitus Diverticulosis large intestine w/o perforation or abscess w/bleeding Essential hypertension Family history of colon cancer in father Glaucoma High cholesterol History of calculus of gallbladder History of colon polyps Colonoscopy on 09/18/[address] Giurgius with polyps removed History of COVID-19 2019 Hypothyroidism Kidney stone Obesity (BMI 30-39.9) Obstructive pyelonephritis Pneumonia Restrictive lung disease secondary to obesity Right ureteral calculus Right proximal ureteral stone with high-grade obstruction complicated by obstructive pyelonephritis and sepsis Sepsis Shortness of breath Trigger finger (acquired) Well adult health check Surgical History (Updated 07/12/22 @ 09:29 by Madhu Felder MD) H/O knee surgery H/O tubal ligation History of carpal tunnel surgery History of laparoscopic cholecystectomy Family History Father , at age 66 Cancer Colon Mother No problems noted. Other Diabetes Social History Smoking and tobacco status: former smoker Alcohol intake: never Marital status: Current occupational status: retired Female Reproductive History Para: 4 Spontaneous abortions: No Data Anesthesia Cardiac Studies: Echocardiogram 06/24/22
[2022-07-15] VITALS (9 sets, daily range): BP systolic 93–114; BP diastolic 53–70; PULSE 70–79; RESP 16–18; TEMP 36.1–36.2; O2SAT 91–99
--- NOTE | 2022-07-15 05:07 | P.HPUD_ITS ---
Surgery/Procedure H&P Update DATE OF PROCEDURE: July 15, 2022 DATE H&P PERFORMED: 07/11/22 H&P UPDATE INFORMATION: I have reviewed H&P completed within last 30 days, No changes to prior documentation and H&P is in [facility] E[facility] on date indicated CHANGES TO PREVIOUS DOCUMENTATION: KUB shows no change in the stone. Stent in good position PLANNED PROCEDURE: Operation Date: 07/15/22 07:00 Proposed Procedures p []RIGHT: EXTRACORPOREAL SHOCKWAVE LITHOTRIPSY 39682, N20.1(Right) - Wei Gill MD
--- NOTE | 2022-07-15 06:01 | XRR_ITS ---
PROCEDURE INFORMATION: Exam: XR Abdomen Exam date and time: 07/15/2022 6:07 AM Age: 67 years old Clinical indication: Screening exam; Other: Preop eswl; Prior surgery; Surgery date: 6+ months; Surgery type: Gb. Hysterectomy. RT ureteral stent TECHNIQUE: Imaging protocol: Radiologic exam of the abdomen. Views: Frontal supine view of the abdomen. 1 View. COMPARISON: CR XR KUB [id number] 07/11/2022 3:10 PM FINDINGS: Gastrointestinal tract: Prominent stool, suggesting constipation. Intraperitoneal space: Nonvisualization of the pelvis. Bones/joints: Osteopenia, degenerative change, and mild scoliosis. Other findings: 9 mm calculus overlying the lower pole the right kidney. Right double-J catheter. XR/XR KUB [id number] IMPRESSION: 9 mm calculus overlying the lower pole the right kidney and right double-J catheter.
[2022-07-15] MEDS: sodium chloride 0.9% 1,000 ML 30 ML IV (06:26)
[2022-07-15 06:42] LABS: Glucose Point of Care 123 mg/dL (70-110)
--- NOTE | 2022-07-15 06:57 | P.ANESUD_ITS ---
Pre-Anesthetic Update Pre-Anesthetic Assessment: Date of Surgery/Procedure: 07/15/22 Preop Kalie gnosis: Right renal calculus status post stenting for obstructive pyelonephritis Proposed Procedure: Operation Date: 07/15/22 07:00 Proposed Procedures p []RIGHT: EXTRACORPOREAL SHOCKWAVE LITHOTRIPSY [id number], N20.1(Right) - Wei Gill MD Any changes to Pre-Anesthetic Assessment?: No Last Intake: Intake Last Liquid Date 07/14/22 Last Liquid Time 20:00 Last Solid Date 07/14/22 Last Solid Time 17:00 Vitals: Temperature 97.0 F L 07/15/22 06:33 Temperature Source Temporal Artery S can 07/15/22 06:33 Pulse Rate 73 07/15/22 06:33 Respiratory Rate 18 07/15/22 06:33 Blood Pressure 114/70 07/15/22 06:33 Blood Pressure Priyanka n 84 07/15/22 06:33 Pulse Oximetry 94 07/15/22 06:33 Oxygen Delivery Me thod Room Air 07/15/22 06:35 Exam: Pre-Anes Outpt Exam: alert, oriented x 3, clear to auscultation bilaterally and regular rate & rhythm Cardiac Studies: Echocardiogram 06/24/22
--- NOTE | 2022-07-15 07:51 | P.OP_ITS ---
Operative Report Date of procedure: July 15, 2022 Pre-op diagnosis: Right renal calculus status post stenting for obstructive pyelonephritis Post-op diagnosis: Right renal calculus status post stenting for obstructive pyelonephritis Procedure done: 1. Extracorporeal shockwave lithotripsy right renal calculus Implants: Previously placed indwelling ureteral stent. No change Specimens removed/disposition: None Pathology: None Surgeon: Jairo Arabic Teacher: Maxwell Martins lithotripsy Graphite Disk Assembler, Estimated blood loss: None Urine output: Not measured Complications: None Findings: Anesthesia: General Condition: Stable Disposition: PACU Intraoperative findings: * Approximately 2100 shocks administered with excellent change. Could no longer see any residual fragments at the completion of the procedure. Brief History: Jenny is a very pleasant 67-year-old white female recently diagnosed with obstructive pyelonephritis and sepsis requiring emergency stenting and IV antibiotic therapy with resolution of UTI. She was also found to have CHRONIC CYSTITIS CYSTICA. She is back now for attempt at definitive treatment of the residual stone which was pushed up into the kidney at time of stent placement. Stone was easily identified on preoperative KUB. Procedure: After routine preoperative evaluation examination and obtaining of informed consent she was taken to the operating suite on 07/15/2022 where general anesthesia was administered without difficulty after appropriate timeout was performed, SCDs confirmed to be functioning, preoperative antibiotics admin istered, beta-aris protocol confirmed. Position on the Dornier unit in supine position such that the stone was located at the focal point utilizing biplanar fluoroscopy. Shock head was positioned posteriorly. Treatment was initiated at an intensity of 1 with slow advancement to an intensity of 4. After approximately 300 shocks a several minute pause was conducted. Stone responded very well and was changing dramatically even at around 400 shocks. Rate was increased to 80 and then 90 as stone fragmentation progressed. By the completion of the procedure the stone could no longer be seen. Procedure was completed at about 2100 shocks. She tolerated procedure well without complications and was awakened in the operating room and returned to the recovery room in stable condition. PLANS: 1. Anticipate discharge from outpatient surgery 2. Follow-up next week for likely cystoscopy stent removal following KUB.
[2022-07-15 08:07] LABS: Glucose Point of Care 106 mg/dL (70-110)
--- NOTE | 2022-07-15 13:27 | ANE.PACU2 ---
Inpatient post-anesthesia follow up: Airway intact: Yes Vital signs: Temperature 97.1 F Pulse Rate 74 Respiratory Rate 16 Blood Pressure 108/66 Pulse Oximetry 91 Oxygen Delivery Me thod Room Air Oxygen Flow Rate 2 Fraction of Inspir ed Oxygen Hydration adequate: Yes Nausea and vomiting: No Pain level: 1 Mental status: Baseline
== END 2022-07-15 09:40 | disposition home or self-care (01) ==
PROVIDERS: PCP Family Medicine Adult Medicine; Visit Provider Urology
PROC: (CPT 50590; principal; 2022-07-15 07:00)
DX: N20.0 Calculus of kidney (principal); E11.9 Type 2 diabetes mellitus without complications; E78.5 Hyperlipidemia, unspecified; E66.01 Morbid (severe) obesity due to excess calories; Z68.35 Body mass index [BMI] 35.0-35.9, adult; E03.9 Hypothyroidism, unspecified; Z79.84 Long term (current) use of oral hypoglycemic drugs; I10 Essential (primary) hypertension; Z87.891 Personal history of nicotine dependence
CPT/HCPCS: 50590; 36416; 74018; 82962; J0131; J1100; J2370; J2405; J2704; J3010; J3490; J7030; P9045

== ENCOUNTER 2022-07-18 11:14 | Outpatient (RCR) | payer MEDICARE, SELFPAY | END 2022-08-09 23:59 | disposition home or self-care (01) | LOC: SPT 11:14 | PROVIDERS: PCP Family Medicine Adult Medicine; Visit Provider Nurse Practitioner Family | DX: M25.561 Pain in right knee (principal) | CPT/HCPCS: 97110; 97161 ==

== ENCOUNTER 2022-07-23 08:00 | Outpatient (CLI) | payer MEDICARE, SELFPAY ==
--- NOTE | 2022-07-23 08:10 | XR_ITS ---
WS: [id number] XR KUB [id number] REASON FOR EXAM: STONES FINDINGS: Properly positioned right ureteral stent, unchanged compared to 07/15/2022. Dissolution, fragmentation, and indistinctness of previously demonstrated 10 mm calculus in the lower pole of the right kidney. No calculus fragments are seen along the course of the stent or within the bladder. XR/XR KUB [id number] IMPRESSION: Unchanged right ureteral stent with interval change of lower pole calculus righ t kidney.
== END 2022-07-23 08:01 | disposition home or self-care (01) ==
LOC: RAD 08:01
PROVIDERS: PCP Family Medicine Adult Medicine; Visit Provider Urology
DX: Z48.816 Encounter for surgical aftercare following surgery on the genitourinary system (principal); N20.0 Calculus of kidney; N20.1 Calculus of ureter; N30.20 Other chronic cystitis without hematuria; Z87.442 Personal history of urinary calculi; Z96.0 Presence of urogenital implants; Z79.2 Long term (current) use of antibiotics
CPT/HCPCS: 74018; 81003; 99024

== ENCOUNTER 2022-08-07 06:56 | Outpatient (CLI) | payer MEDICARE, SELFPAY ==
--- NOTE | 2022-08-07 07:06 | XR_ITS ---
WS: [id number] Exam: XR KUB [id number] Date/Time of Exam: 08/07/2022 7:22 AM Reason For Exam: stones Comparison 07/23/2022. No bowel obstruction or free air. Several small calcification superimpose the right kidney and are no nspecific. These could be renal stones. Degenerative changes of the lumbar spine. No sign of organ en largement. Moderate amount of stool in the colon. XR/XR KUB [id number] IMPRESSION: 1. No acute abdominal process. 2. Several small calcification superimpose the right kidney. These could be miladis al stones but are nonspecific.
== END 2022-08-07 06:57 | disposition home or self-care (01) ==
PROVIDERS: PCP Family Medicine Adult Medicine; Visit Provider Urology
DX: N30.80 Other cystitis without hematuria (principal); N20.9 Urinary calculus, unspecified; Z79.2 Long term (current) use of antibiotics
CPT/HCPCS: 74018; 81003; 99213

== ENCOUNTER 2022-08-16 16:02 | Outpatient (RCR) | payer MEDICARE, SELFPAY | END 2022-09-09 23:59 | disposition home or self-care (01) | LOC: SPT 16:02 | PROVIDERS: PCP Family Medicine Adult Medicine; Visit Provider Nurse Practitioner Family | DX: M25.561 Pain in right knee (principal) | CPT/HCPCS: 97110 ==

== ENCOUNTER → 2022-08-19 15:12 | Outpatient (BNVA) | payer MEDICARE, SELFPAY | PROVIDERS: PCP Family Medicine Adult Medicine; Visit Provider Specialist | DX: M24.561 Contracture, right knee (principal); Z96.651 Presence of right artificial knee joint | CPT/HCPCS: 73560; 73565; 99204 ==

== ENCOUNTER 2022-08-23 07:16 | Outpatient (CLI) | payer MEDICARE, SELFPAY ==
--- NOTE | 2022-08-23 07:30 | US_ITS ---
WS: [id number] ULTRASOUND ABDOMEN LIMITED CLINICAL INFORMATION: RUQ pain COMPARISON: None. FINDINGS: Technically difficult examination due to body habitus. Liver Size: Normal. Craniocaudal length: 12.4 cm. Echogenicity: Coarse Surface nodularity: None. Mass (size and location): None. Bile ducts Intrahepatic ducts: Normal. Common bile duct diameter: 0.6 cm. Gallbladder Cholecystectomy Pancreas Not well visualized Right kidney: Normal. Hydronephrosis: None. Size: 11.4 cm x 5.5 cm x 5.2 cm. Abdominal aorta appears normal. IVC not well visualized. Ascites: None. US/US gall bladder [id number] IMPRESSION: Technically limited exam difficult study due to body habitus. 1. Prior cholecystectomy. 2. Normal common bile duct. 3. No hydronephrosis in RIGHT kidney. 4. Normal size liver with coarse hepatic echogenicity can be seen with fatty i nfiltration
== END 2022-08-23 07:17 | disposition home or self-care (01) ==
PROVIDERS: PCP Family Medicine Adult Medicine; Visit Provider Family Medicine Adult Medicine
DX: R10.11 Right upper quadrant pain (principal); Z96.0 Presence of urogenital implants; Z90.49 Acquired absence of other specified parts of digestive tract
CPT/HCPCS: 76705

== ENCOUNTER 2022-09-10 06:00 | Outpatient (RCR) | payer MEDICARE, SELFPAY | END 2022-10-07 08:23 | disposition home or self-care (01) | LOC: SPT 06:00 | PROVIDERS: PCP Family Medicine Adult Medicine; Visit Provider Nurse Practitioner Family | DX: M25.561 Pain in right knee (principal) | CPT/HCPCS: 97110 ==

== ENCOUNTER → 2022-09-16 10:17 | Outpatient (BNVA) | payer MEDICARE, SELFPAY | PROVIDERS: PCP Family Medicine Adult Medicine; Visit Provider Nurse Practitioner Family | DX: R20.0 Anesthesia of skin; R20.2 Paresthesia of skin; M65.342 Trigger finger, left ring finger; Z01.818 Encounter for other preprocedural examination; R52 Pain, unspecified; Z79.84 Long term (current) use of oral hypoglycemic drugs | CPT/HCPCS: 36415; 73130; 80053; 81003; 83036; 85025; 99214 ==

== ENCOUNTER → 2022-09-18 12:52 | Outpatient (BNVA) | payer MEDICARE, SELFPAY | PROVIDERS: PCP Family Medicine Adult Medicine; Visit Provider Psychiatry & Neurology Neurology | DX: I61.9 Nontraumatic intracerebral hemorrhage, unspecified (principal); N10 Acute pyelonephritis; N20.0 Calculus of kidney; E11.39 Type 2 diabetes mellitus with other diabetic ophthalmic complication; H42 Glaucoma in diseases classified elsewhere; Z79.84 Long term (current) use of oral hypoglycemic drugs; I10 Essential (primary) hypertension | CPT/HCPCS: 99212 ==

== ENCOUNTER → 2022-09-26 10:30 | Outpatient (BNVA) | payer MEDICARE, SELFPAY | PROVIDERS: PCP Family Medicine Adult Medicine; Referring Provider Psychiatry & Neurology Neurology; Visit Provider Psychiatry & Neurology Neurology | DX: I61.1 Nontraumatic intracerebral hemorrhage in hemisphere, cortical (principal) | CPT/HCPCS: 95816; 95819 ==

== ENCOUNTER → 2022-09-30 09:48 | Outpatient (BNVA) | payer MEDICARE, SELFPAY | PROVIDERS: PCP Family Medicine Adult Medicine; Visit Provider Specialist | DX: M65.342 Trigger finger, left ring finger (principal); R20.0 Anesthesia of skin; R20.2 Paresthesia of skin | CPT/HCPCS: 99214 ==

== ENCOUNTER 2022-10-04 06:44 | Day surgery (SDC) | payer MEDICARE, SELFPAY ==
[2022-10-03 10:03] VITALS: BP 108/73; PULSE 76; RESP 16; O2SAT 93
[2022-10-03 10:09] VITALS: BMI 35.6
[2022-10-04] VITALS (9 sets, daily range): BP systolic 114–161; BP diastolic 58–83; PULSE 73–80; RESP 16; TEMP 36–36.1; O2SAT 91–95
[2022-10-04] MEDS: acetaminophen 1,000 MG/100 ML PIGGYBACK 400 MG IV ×2 (07:04→07:29)
[2022-10-04] MEDS: sodium chloride 0.9% 1,000 ML 30 ML IV (07:05)
[2022-10-04] MEDS: gabapentin 300 mg Capsule PO (07:05)
--- NOTE | 2022-10-04 07:29 | ANES.PREANE2 ---
Pre-Anesthetic Assessment Height/Weight: Height 1.57 m Weight 88.451 kg O2 Del Method Room Air 10/04/22 07:16 Operation Date: 10/04/22 08:15 Proposed Procedures p LEFT RING FINGER TRIGGER FINGER RELEASE [id number],M65.30(Left) - Madiha Michelle MD Familial anesthetic complications: none Was Beta Raúl taken within 24 hours: N/A Was Clonidine taken within 24 hours: N/A Last intake: Intake Last Liquid Date 10/03/22 Last Liquid Time 19:00 Last Solid Date 10/03/22 Last Solid Time 16:00 Social No alcohol and No tobacco Exam alert, oriented x 3, clear to auscultation bilaterally and regular rate & rhythm Airway Submandibular: within normal limits Cervical ROM: within normal limits Mallampati: Class I Dentition: full CV/HEM Hypertension Metabolic Diabetes Mellitus, Hyperlipidemia, Morbid Obesity and Thyroid Disease Anesthetic Plan ASA status: 3 Anesthesia: Choice Medications/Allergies Home Medications Medication Instructions Recorded Confirmed Last Taken Type latanoprost 0.005 % eye drops 1 drp ophthalmic (eye) BEDTIME 06/20/21 10/03/22 1 Day Ago History ~10/02/22 One touch mini test strips #100 ea 03/14/22 09/30/22 Unknown Rx levothyroxine 100 mcg tablet 100 mcg PO QAM 06/21/22 10/03/22 10/03/22 History metformin 500 mg tablet 500 mg PO BID 06/21/22 10/03/22 1 Day Ago History ~10/02/22 acetaminophen 500 mg tablet 1,000 mg PO Q6H PRN Pain 07/12/22 10/04/22 10/03/22 History (Tylenol Extra Strength) simvastatin 20 mg tablet 20 mg PO DAILY diabetes #90 tabs 07/12/22 10/03/22 10/03/22 Rx hydrocodone 5 mg-acetaminophen 325 1 tab PO Q8H PRN pain #12 tabs 07/15/22 10/04/22 10/03/22 Rx mg tablet methenamine hippurate 1 gram tablet 1 g PO BID Recurrent UTI #60 tabs 07/23/22 10/03/22 10/03/22 Rx Allergies Allergy/AdvReac Type Severity Reaction Status Date / Time ibuprofen [From Motrin] Allergy Mild SOB Verified 10/03/22 10:06 Current Medications Generic Name Dose Route Start Last Admin Trade Name Freq PRN Reason Stop Dose Admin Sodium Chloride 1,000 mls @ 30 mls/hr 10/04/22 07:00 10/04/22 07:05 Sodium Chloride 0.9% IV 10/05/22 06:59 30 mls/hr .Q24H MERRITT Administration PFSH Anesthesia Medical History Acute cystitis Acute delirium Acute lumbar myofascial strain Colicky RUQ abdominal pain Contracture of right knee Cystitis cystica Diabetes mellitus Diverticulosis large intestine w/o perforation or abscess w/bleeding Essential hypertension Family history of colon cancer in father Glaucoma High cholesterol History of calculus of gallbladder History of colon polyps Colonoscopy on 09/18/[address] Cronin with polyps removed History of COVID-2019 Hypothyroidism Kidney stone Obesity (BMI 30-39.9) Obstructive pyelonephritis Pneumonia Restrictive lung disease secondary to obesity Right ureteral calculus Right proximal ureteral stone with high-grade obstruction complicated by obstructive pyelonephritis and sepsis Sepsis Shortness of breath Trigger finger (acquired) Urolithiasis Well adult health check Surgical History H/O knee surgery H/O tubal ligation History of carpal tunnel surgery History of laparoscopic cholecystectomy S/P ureteral stent placement Family History Father , at age 66 Cancer Colon Mother No problems noted. Other Diabetes Social History Smoking and tobacco status: former smoker Alcohol intake: never Marital status: Current occupational status: retired Female Reproductive History Para: 4 Spontaneous abortions: No Data Anesthesia Cardiac Studies: Echocardiogram 06/24/22
[2022-10-04 07:32] LABS: Glucose Point of Care 127 mg/dL (70-110)
--- NOTE | 2022-10-04 08:19 | W.PM.OPSUD ---
Surgery/Procedure H&P Update DATE OF PROCEDURE: October 04, 2022 DATE H&P PERFORMED: 09/30/22 H&P UPDATE INFORMATION: I have reviewed H&P completed within last 30 days, I have examined patient prior to procedure, No changes to prior documentation and H&P is in [facility] EMR on date indicated PLANNED PROCEDURE: Operation Date: 10/04/22 08:15 Proposed Procedures p LEFT RING FINGER TRIGGER FINGER RELEASE [id number],M65.30(Left) - Madiha Michelle MD Related Problem List Diagnoses (1) Trigger finger, left ring finger:
[2022-10-04] MEDS: ceFAZolin 2,000 MG in sodium chloride 0.9% (plus) 50 ML 100 MG IV (08:21)
[2022-10-04] MEDS: BUPivacaine 0.5% INJ 30 mL INJECTION (08:59)
--- NOTE | 2022-10-04 09:15 | PM.OP ---
Operative Report Date of procedure: October 04, 2022 Pre-op diagnosis: Left ring finger triggering Post-op diagnosis: Left ring finger triggering Post-op findings: Significant compression across the flexor tendons from the A1 manuel and proximal synovitis Procedure done: Release left ring finger triggering Pathology: none sent Surgeon: Madiha Michelle Anesthesia: General (Per LMA, ASA 3) Estimated blood loss (mL): 3 Tourniquet time (min): 15 (At 250 mmHg) IV fluids (mL): 600 Urine output (mL): 0 (No Woody) Complications: None Findings: Significant fibrous bands surrounding the area of discomfort as well as very tight flexor tendons within the A1 manuel and proximal synovium Condition: stable Disposition: PACU (Then return to same-day surgery for discharge to home) Brief History: This is a?67 year old female presenting today for release of left ring finger triggering. Patient states her left ring finger locks on her. She states the pain is worse at night. She states it has been going on for the last year.? She also gets numbness in her bilateral hands, and she states she has had carpal tunnel surgery in the early . After discussion in the office, the patient wished to have her left ring finger triggering released. Risks and complications were discussed with her. Consents were signed. Questions were answered. Procedure: Patient was brought to the operating theater. She was placed on the operating room table. General anesthesia was administered per LMA, ASA 3, and the patient tolerated this well. The arm was exsanguinated and tourniquet was elevated to 250 mmHg. Tourniquet time was 15 minutes. Surgical pause was performed prior to commencement of the surgical procedure. At the time of the surgical pause we identified the site and side of surgery. We also identified the patient's identity and appropriate administration of IV antibiotics. Following the surgical pause, an incision was made along the distal palmar crease beneath the ring finger. Dissection continued through the skin to the subcutaneous tissues using a scalpel. Blunt dissection was then utilized to spread soft tissues and allow access to the A1 manuel. It was then incised longitudinally and sharply using a knife. This was accomplished without difficulty and atraumatically. There were noted to be multiple fibrous bands crossing the area as well and these were released. Proximally, there was synovial tissue along with the fibrous bands which were released as well. Once the A1 manuel was released, tendons were brought up out of the wound and evaluated. There were no gross masses on the tendons. Tendons were returned to normal position. We then irrigated the wound and subsequently closed it with 3-0 nylon with an interrupted mattress type suture. Following closure of the wound, the wound was injected with local anesthetic into the subcutaneous tissues as a local anesthetic. Sterile dressing was then placed consisting of Dermabond, OpSite, fluffed fluffs, sterile soft roll, and an Phoenix wrap. The patient was returned to recovery in satisfactory condition. She will be discharged home to follow-up with me in the office. There were no complications and no specimens. Related Problem List Diagnoses (1) Trigger finger, left ring finger:
[2022-10-04] MEDS: HYDROcodone-acetaminophen 5-325 mg Tablet 1 TAB PO (09:53)
--- NOTE | 2022-10-04 09:55 | PC.NURSE ---
Pain medication given - pt tolerated well
--- NOTE | 2022-10-04 10:16 | PC.NURSE ---
Voided- patient ambulated to the br with assist. voided- tolerated well.
--- NOTE | 2022-10-04 14:59 | ANE.PACU2 ---
Inpatient post-anesthesia follow up: Airway intact: Yes Vital signs: Temperature 96.8 F Pulse Rate 76 Respiratory Rate 16 Blood Pressure 130/67 Pulse Oximetry 95 Oxygen Delivery Me thod Room Air Oxygen Flow Rate Fraction of Inspir ed Oxygen Hydration adequate: Yes Nausea and vomiting: No Pain level: 1 Mental status: Baseline
== END 2022-10-04 10:35 | disposition home or self-care (01) ==
PROVIDERS: PCP Family Medicine Adult Medicine; Visit Provider Specialist
PROC: (CPT 26055; principal; 2022-10-04 08:05)
DX: M65.342 Trigger finger, left ring finger (principal); I10 Essential (primary) hypertension; E11.9 Type 2 diabetes mellitus without complications; E78.5 Hyperlipidemia, unspecified; E66.01 Morbid (severe) obesity due to excess calories; Z68.35 Body mass index [BMI] 35.0-35.9, adult; Z79.84 Long term (current) use of oral hypoglycemic drugs; Z86.16 Personal history of COVID-19; Z87.891 Personal history of nicotine dependence
CPT/HCPCS: 26055; 36416; 82962; J0131; J0690; J1100; J2405; J2704; J3010; J3490; J7030

== ENCOUNTER 2022-10-15 09:22 | Outpatient (CLI) | payer MEDICARE, SELFPAY ==
--- NOTE | 2022-10-15 09:30 | MR_ITS ---
WS: [id number] MRI BRAIN WITH AND WITHOUT CONTRAST HISTORY: I61.9 - Nontraumatic intracerebral hemorrhage, unspecified COMPARISON: 06/25/2022, prior head CT 06/25/2022. TECHNIQUE: Multiplanar imaging performed through the brain with MultiHance 20 ml's IV. Diffusion weighted imaging is normal. There are a few scattered T2 and FLAIR signal hyperintensities which are similar to the prior study. The previously described subarachnoid hemorrhage at the RIGHT t emporal lobe intraparenchymal hematoma have significantly improved. There is still hemosiderin in the intraparenchymal hematoma site in the RIGHT posterior temporal lobe. The edema has resolved. The inc reased FLAIR signal seen bilaterally has resolved from the subarachnoid blood. Ventricles and extra-axial spaces are normal. Clivus and pituitary gland are normal. Visualized posterior fossa and brainstem are also normal. Postcontrast images are negative for masses or vascular malformations. There is very mild dural enhan cement over the RIGHT cerebral which may be reactive response from the prior hemorrhage. Dural venous sinuses are normal. Paranasal sinuses: Mild mucoperiosteal thickening in the sinuses. Mastoid air cells: Normal. Calvarium and scalp: Normal. IMPRESSION: 1. No acute intracranial hemorrhage or edema. 2. Chronic hemosiderin in the posterior RIGHT temporal lobe corresponds with the prior intraparenchy mal hematoma described on 06/25/2022. No new acute blood products. 3. Very minimal RIGHT dural enhancement may be response to the prior hemorrhage. No enhancing masses . No vascular malformations are identified. 4. Mild small vessel ischemic disease.
== END 2022-10-15 09:23 | disposition home or self-care (01) ==
PROVIDERS: PCP Family Medicine Adult Medicine; Visit Provider Psychiatry & Neurology Neurology
DX: I61.9 Nontraumatic intracerebral hemorrhage, unspecified (principal); I67.89 Other cerebrovascular disease
CPT/HCPCS: 70553; A9577

== ENCOUNTER → 2022-10-21 08:41 | Outpatient (BNVA) | payer MEDICARE, SELFPAY | PROVIDERS: PCP Family Medicine Adult Medicine; Visit Provider Nurse Practitioner Family | DX: Z98.890 Other specified postprocedural states (principal) | CPT/HCPCS: 99024 ==

== ENCOUNTER → 2022-10-28 13:18 | Outpatient (BNVA) | payer MEDICARE, SELFPAY | PROVIDERS: PCP Family Medicine Adult Medicine; Visit Provider Specialist | DX: Z96.651 Presence of right artificial knee joint (principal); M25.561 Pain in right knee; G89.29 Other chronic pain | CPT/HCPCS: 73560; 73565; 99214 ==

== ENCOUNTER 2022-11-11 09:22 | Outpatient (CLI) | payer MEDICARE, SELFPAY ==
--- NOTE | 2022-11-11 09:30 | NM_ITS ---
WS: [id number] THREE-PHASE BONE SCAN HISTORY: painful tka, RIGHT knee replacement 2000. COMPARISON: Radiographs 10/28/2022 Patient is is injected with 23.8 mCi Tc99m HDP intravenously. Immediate angiographic phase imaging is performed over the area of concern. Static blood pool imaging also performed. Two-hour whole-body sc intigrams performed in anterior and posterior projections. Additional large field of view imaging sub mitted as necessary. Angiographic and blood pool imaging is normal. There is no increased soft tissue or blood pool uptake on the early phases. There is a photopenic defect at the RIGHT knee from the knee replacement. On the delayed imaging there is very mild increased uptake along the RIGHT tibial plateau and along t he posterior surface of the patella. Mild increased uptake also along the LEFT tibial plateau medial compartment at the site of joint space narrowing. Mild RIGHT SC joint arthritis. Mild early arthritic changes at the ankle joints. Focal facet joint ar thritis on the RIGHT at L2 IMPRESSION: 1. Very minimal increased uptake along the RIGHT tibial plateau and patella. There is no evidence for loosening radiographically. Changes may potentially represent very early loosening along the tibial component. Increased uptake in the patella may be due to chronic narrowing of the joint space and pos sible patellar tract abnormalities. There is no evidence for osteomyelitis or cellulitis at the RIGHT knee. 2. Mild medial compartment arthritis LEFT knee.
== END 2022-11-11 09:23 | disposition home or self-care (01) ==
LOC: RAD 09:23
PROVIDERS: PCP Family Medicine Adult Medicine; Visit Provider Specialist
DX: Z96.651 Presence of right artificial knee joint (principal); M17.12 Unilateral primary osteoarthritis, left knee
CPT/HCPCS: 78315; A9561

== ENCOUNTER → 2022-11-28 10:54 | Outpatient (BNVA) | payer MEDICARE, SELFPAY | PROVIDERS: PCP Family Medicine Adult Medicine; Visit Provider Nurse Practitioner | DX: S92.314A Nondisplaced fracture of first metatarsal bone, right foot, initial encounter for closed fracture (principal); X58.XXXA Exposure to other specified factors, initial encounter | CPT/HCPCS: 73630 ==

== ENCOUNTER → 2022-12-02 08:46 | Outpatient (BNVA) | payer MEDICARE, SELFPAY | PROVIDERS: PCP Family Medicine Adult Medicine; Visit Provider Podiatrist Foot & Ankle Surgery | DX: S92.314G Nondisplaced fracture of first metatarsal bone, right foot, subsequent encounter for fracture with delayed healing (principal); W23.1XXD Caught, crushed, jammed, or pinched between stationary objects, subsequent encounter; E11.9 Type 2 diabetes mellitus without complications; Z79.84 Long term (current) use of oral hypoglycemic drugs | CPT/HCPCS: 99203 ==

== ENCOUNTER → 2022-12-16 11:33 | Outpatient (BNVA) | payer MEDICARE, SELFPAY | PROVIDERS: PCP Family Medicine Adult Medicine; Visit Provider Podiatrist Foot & Ankle Surgery | DX: S92.314G Nondisplaced fracture of first metatarsal bone, right foot, subsequent encounter for fracture with delayed healing (principal); W23.1XXD Caught, crushed, jammed, or pinched between stationary objects, subsequent encounter | CPT/HCPCS: 73630; 99213 ==

== ENCOUNTER → 2023-01-23 11:23 | Outpatient (BNVA) | payer MEDICARE, SELFPAY | PROVIDERS: PCP Family Medicine Adult Medicine; Referring Provider Specialist; Visit Provider Anesthesiology Pain Medicine | DX: M54.16 Radiculopathy, lumbar region (principal); M47.816 Spondylosis without myelopathy or radiculopathy, lumbar region | CPT/HCPCS: 72110; 99204 ==

== ENCOUNTER → 2023-02-25 10:45 | Outpatient (BNVA) | payer MEDICARE, SELFPAY | PROVIDERS: PCP Family Medicine Adult Medicine; Visit Provider Anesthesiology Pain Medicine | DX: M47.816 Spondylosis without myelopathy or radiculopathy, lumbar region; M43.16 Spondylolisthesis, lumbar region | CPT/HCPCS: 99214 ==

== ENCOUNTER → 2023-04-08 11:32 | Outpatient (BNVA) | payer MEDICARE, SELFPAY | PROVIDERS: PCP Family Medicine Adult Medicine; Visit Provider Podiatrist Foot & Ankle Surgery | DX: E11.42 Type 2 diabetes mellitus with diabetic polyneuropathy (principal); L60.3 Nail dystrophy; I73.9 Peripheral vascular disease, unspecified; Z79.84 Long term (current) use of oral hypoglycemic drugs | CPT/HCPCS: 11721 ==

== ENCOUNTER → 2023-05-14 11:24 | Outpatient (BNVA) | payer MEDICARE, SELFPAY | PROVIDERS: PCP Family Medicine Adult Medicine; Visit Provider Family Medicine Adult Medicine | DX: E11.59 Type 2 diabetes mellitus with other circulatory complications (principal); E03.9 Hypothyroidism, unspecified; I10 Essential (primary) hypertension | CPT/HCPCS: 80053; 83036; 84443; 85025 ==

== ENCOUNTER → 2023-05-22 10:12 | Outpatient (BNVA) | payer MEDICARE, SELFPAY | PROVIDERS: PCP Family Medicine Adult Medicine; Visit Provider Anesthesiology Pain Medicine | DX: G89.29 Other chronic pain; M47.816 Spondylosis without myelopathy or radiculopathy, lumbar region; M43.16 Spondylolisthesis, lumbar region | CPT/HCPCS: 99214 ==

== ENCOUNTER 2023-05-26 07:43 | Outpatient (RCR) | payer MEDICARE, SELFPAY | END 2023-06-10 23:59 | disposition home or self-care (01) | LOC: SPT 07:43 | PROVIDERS: PCP Family Medicine Adult Medicine; Visit Provider Anesthesiology Pain Medicine | DX: M54.50 Low back pain, unspecified (principal); G89.29 Other chronic pain | CPT/HCPCS: 97110; 97161; G0283 ==

== ENCOUNTER 2023-06-16 10:35 | Outpatient (RCR) | payer MEDICARE, SELFPAY | END 2023-06-16 23:59 | disposition home or self-care (01) | LOC: SPT 10:35 | PROVIDERS: PCP Family Medicine Adult Medicine; Visit Provider Anesthesiology Pain Medicine | DX: M54.50 Low back pain, unspecified (principal); G89.29 Other chronic pain | CPT/HCPCS: 97110; G0283 ==

== ENCOUNTER → 2023-07-01 10:21 | Outpatient (BNVA) | payer MEDICARE, SELFPAY | PROVIDERS: PCP Family Medicine Adult Medicine; Visit Provider Podiatrist Foot & Ankle Surgery | DX: I73.9 Peripheral vascular disease, unspecified (principal); E11.42 Type 2 diabetes mellitus with diabetic polyneuropathy; L60.3 Nail dystrophy; M21.41 Flat foot [pes planus] (acquired), right foot; M21.42 Flat foot [pes planus] (acquired), left foot; M20.41 Other hammer toe(s) (acquired), right foot; M20.42 Other hammer toe(s) (acquired), left foot | CPT/HCPCS: 99213 ==

== ENCOUNTER → 2023-07-21 10:27 | Outpatient (BNVA) | payer MEDICARE, SELFPAY | PROVIDERS: PCP Family Medicine Adult Medicine; Visit Provider Anesthesiology Pain Medicine | DX: M47.816 Spondylosis without myelopathy or radiculopathy, lumbar region | CPT/HCPCS: 99213 ==

== ENCOUNTER → 2023-08-25 14:20 | Outpatient (BNVA) | payer MEDICARE, SELFPAY | PROVIDERS: PCP Family Medicine Adult Medicine; Referring Provider Family Medicine Adult Medicine; Visit Provider Surgery | DX: Z80.0 Family history of malignant neoplasm of digestive organs (principal); K92.1 Melena; R10.9 Unspecified abdominal pain; K59.04 Chronic idiopathic constipation; Z86.010 Personal history of colon polyps | CPT/HCPCS: 99214 ==

== ENCOUNTER 2023-08-27 15:15 | Emergency (ER) | payer MEDICARE, SELFPAY ==
[2023-08-27 15:24] VITALS: BP 115/72; PULSE 84; RESP 18; TEMP 36.9; O2SAT 95
[2023-08-27 15:47] LABS: Basophils # 0.1 10^3/uL (0.0-0.1); Basophils % 0.6 %; Eosinophils # 0.1 10^3/uL (0.0-0.8); Eosinophils % 1.6 %; Hematocrit 41.9 % (36-47); Lymphocytes # 3.2 10^3/uL (0.8-4.8); Lymphocytes % 36.9 %; Mean Corpuscular HGB Conc 33.4 g/dL (30-55); Mean Corpuscular Hemoglobin 30.8 pg (27-33); Mean Corpuscular Volume 92.1 fl (85-98); Mean Platelet Volume 9.9 fL (7.4-10.4); Monocytes # 0.6 10^3/uL (0.2-0.9); Monocytes % 7.2 %; Neutrophils % 53.5 %; Nucleated Red Blood Cells % 0 %; Platelet Count 214 10^3/cmm (157-399); Red Blood Count 4.55 10^6/uL (3.85-5.65); Red Cell Distribution Width 12.1 % (12.1-15.1)
[2023-08-27 16:07] LABS: Alanine Aminotransferase 16 U/L (0-33); Albumin Level 3.6 g/dL (3.5-5.2); Alkaline Phosphatase 141 U/L (35-105); Anion Gap 16.1 (5-19); Aspartate Amino Transferase 23 U/L (0-32); Blood Urea Nitrogen 12 mg/dL (8-23); Carbon Dioxide 23 mmol/L (22-29); Chloride 102 mmol/L (98-107); Creatinine Clr Calc Pharmacy 71.4578; Globulin 3.4 g/dL (1.3-4.6); Glomerular Filtration Rate 158.7 mL/min (90-130); Glucose 269 mg/dL (65-115); Lipase 26 U/L (13-60); Osmolality Calculated 293 mOsm/kg (285-295); Potassium 4.1 mmol/L (3.5-5.1); Sodium 137 mmol/L (136-145); Total Bilirubin 0.4 mg/dL (0.15-1.2)
--- NOTE | 2023-08-27 17:02 | W.ED.GENADLT ---
HPI - General Adult General: Chief complaint: General Medical Stated complaint: left rib pain Time Seen by Provider: 08/27/23 16:59 History of Present Illness: 68-year-old female comes in today with left anterior rib pain. Patient bent over about a week ago and felt a sudden sharp pain in her left anterior ribs. Patient believes he might of fell up popping sensation in that area 2. Since then patient has had persistent pain and discomfort to the left anterior ribs. Review of Systems General: Reports: 10 or more systems reviewed and unremarkable except in HPI and below PFSH ED PFSH: Medical History (Updated 08/27/23 @ 18:50 by Valente Orona, [facility]) Family history of colon cancer History of colon polyps Colonoscopy on 09/18/[address] Cronin with polyps removed Diabetic gastroparesis associated with type 2 diabetes mellitus Mixed stress and urge urinary incontinence Multiple falls Nondisp fracture of first right metatarsal bone with delayed healing Anxiety with depression Glaucoma Urolithiasis Frequent headaches Obstructive pyelonephritis Obesity (BMI 30-39.9) Restrictive lung disease secondary to obesity Hypothyroidism Essential hypertension High cholesterol Diabetes mellitus Diverticulosis large intestine w/o perforation or abscess w/bleeding Surgical History S/P trigger finger release 10/05/3031 Hand Lt [address]th [address] Michelle History of total right knee replacement Rt knee contracture S/P ureteral stent placement History of laparoscopic cholecystectomy History of carpal tunnel surgery H/O tubal ligation Family History Father , at age 66 Cancer Colon Mother No problems noted. Other Diabetes Social History Smoking and tobacco/nicotine status: never used tobacco/nicotine Alcohol intake: never Marital status: Current occupational status: retired Female Reproductive History: Para: 4 Spontaneous abortions: No Physical Exam Const: COMMON NORMALS: alert HENMT: COMMON NORMALS: normocephalic HEAD & SCALP: normocephalic Neck/C-Spine: COMMON NORMALS: full ROM Chest: CHEST: Yes tenderness (Left lower anterior ribs) Resp: COMMON NORMALS: normal respiratory effort Cardio: COMMON NORMALS: regular rate and regular rhythm RATE: regular rate RHYTHM: regular rhythm GI: COMMON NORMALS: Soft to palpation and non-tender PALPATION: Yes Soft to palpation : COMMON NORMALS: Yes no CVA tenderness BLADDER/KIDNEY EXAM: Yes no CVA tenderness Back/Pelvis: COMMON NORMALS: no CVA tenderness Extremity: COMMON NORMALS: normal to inspection Neuro: SENSORIUM/ORIENTATION: Yes alert Skin: COMMON NORMALS: turgor normal GENERAL SKIN EXAM: turgor normal Course Vital Signs: Vital signs: Vital Signs Temperature 98.5 F 08/27/23 15:24 Pulse Rate 84 08/27/23 15:24 Respiratory Rate 18 08/27/23 19:07 Blood Pressure 115/72 08/27/23 15:24 Pulse Oximetry 95 08/27/23 15:24 Oxygen Delivery Me thod Room Air 08/27/23 15:24 MDM - General Adult Medical Decision Making 68-year-old female comes in today for complaints of left anterior lower rib pain. On exam patient appears nontoxic. Patient has some tenderness and discomfort to the left anterior lower ribs. Abdomen soft nontender. Vital signs are normal. Differential diagnosis costochondritis, muscle strain, rib fracture. X-ray noted no abnormalities. CBC and CMP were performed to rule out any abdominal or infection that may be causing patient's pain. No significant abnormalities were noted except for some elevated glucose of 269. Patient reports understanding of plan of care for pain control and follow-up for worsening symptoms. Lab Data 08/27/23 15:41 08/27/23 15:41 Radiology Impressions Ribs X-Ray 08/27/23 17:16 IMPRESSION: No acute findings. Laboratory Results WBC 8.60 10^3/uL (3.29-11.43) 08/27/23 15:41 RBC 4.55 10^6/uL (3.85-5.65) 08/27/23 15:41 Hgb 14.00 g/dL (11.27-16.99) 08/27/23 15:41 Hct 41.9 % (36-47) 08/27/23 15:41 MCV 92.1 fl (85-98) 08/27/23 15:41 MCH 30.8 pg (27-33) 08/27/23 15:41 MCHC 33.4 g/dL (30-55) 08/27/23 15:41 RDW 12.1 % (12.1-15.1) 08/27/23 15:41 Plt Count 214 10^3/cmm (157-399) 08/27/23 15:41 MPV 9.9 fL (7.4-10.4) 08/27/23 15:41 Neut % (Auto) 53.5 % 08/27/23 15:41 Lymph % (Auto) 36.9 % 08/27/23 15:41 [place] % (Auto) 7.2 % 08/27/23 15:41 Eos % (Auto) 1.6 % 08/27/23 15:41 Baso % (Auto) 0.6 % 08/27/23 15:41 Neut # (Auto) 4.60 10^3/uL (1.8-7.7) 08/27/23 15:41 Lymph # (Auto) 3.2 10^3/uL (0.8-4.8) 08/27/23 15:41 [place] # (Auto) 0.6 10^3/uL (0.2-0.9) 08/27/23 15:41 Eos # (Auto) 0.1 10^3/uL (0.0-0.8) 08/27/23 15:41 Baso # (Auto) 0.1 10^3/uL (0.0-0.1) 08/27/23 15:41 Nucleated RBC % (auto) 0 % 08/27/23 15:41 Nucleated RBCs # 0.0 /100WBC 08/27/23 15:41 Sodium 137 mmol/L (136-145) 08/27/23 15:41 Potassium 4.1 mmol/L (3.5-5.1) 08/27/23 15:41 Chloride 102 mmol/L (98-107) 08/27/23 15:41 Carbon Dioxide 23 mmol/L (22-29) 08/27/23 15:41 Anion Gap 16.1 (5-19) 08/27/23 15:41 BUN 12 mg/dL (8-23) 08/27/23 15:41 Creatinine 0.4 mg/dL (0.5-0.9) L 08/27/23 15:41 GFR Calculation 158.7 mL/min (90-130) H 08/27/23 15:41 Glucose 269 mg/dL (65-115) H 08/27/23 15:41 Calculated Osmolality 293 mOsm/kg (285-295) 08/27/23 15:41 Calcium 10.0 mg/dL (8.5-10.5) 08/27/23 15:41 Total Bilirubin 0.4 mg/dL (0.15-1.2) 08/27/23 15:41 AST 23 U/L (0-32) 08/27/23 15:41 ALT 16 U/L (0-33) 08/27/23 15:41 Alkaline Phosphatase 141 U/L (35-105) H 08/27/23 15:41 Total Protein 7.0 g/dL (6.6-8.7) 08/27/23 15:41 Albumin 3.6 g/dL (3.5-5.2) 08/27/23 15:41 Globulin 3.4 g/dL (1.3-4.6) 08/27/23 15:41 Lipase 26 U/L (13-60) 08/27/23 15:41 All radiology interpretation(s) finalized by discharge Discharge Plan Discharge Patient Disposition: Home Clinical Impression: Muscle strain of anterior chest wall Condition: Stable Prescriptions: No Action (DME) walkerwith seat-wheels adjust height standard See Rx Instructions .Route .MEDSUPPLY Qty: 1 0RF Rx Instructions: As directed (DME) TLSO BRACE See Rx Instructions .Route .MEDSUPPLY Qty: 1 0RF Rx Instructions: As directed (DME) Diabetic shoes See Rx Instructions .ROUTE .MEDSUPPLY Qty: 1 0RF Rx Instructions: With 3 pairs of inserts methenamine hippurate 1 gram tablet 1 g PO BID Qty: 180 1RF Rx Instructions: 1 pill twice a day with 1 g vitamin C each dose Begin after completing 1 month of LEVAQUIN. metformin 500 mg tablet 500 mg PO BID Qty: 180 1RF simvastatin 20 mg tablet 20 mg PO DAILY Qty: 90 1RF naproxen [Naprosyn] 500 mg tablet 500 mg PO BID PRN (Reason: pain) Qty: 60 1RF oxybutynin chloride 10 mg tablet extended release 24hr 10 mg PO DAILY Qty: 90 1RF metoclopramide HCl [Reglan] 10 mg tablet 10 mg PO QID Qty: 120 0RF (DME) One touch mini test strips See Rx Instructions .Route .MEDSUPPLY Qty: 100 5RF Rx Instructions: As directed escitalopram oxalate 5 mg tablet 5 mg PO DAILY Qty: 30 1RF levothyroxine 100 mcg tablet 100 mcg PO QAM Qty: 90 1RF latanoprost 0.005 % drops 1 drp ophthalmic (eye) BEDTIME Qty: 7.5 3RF Rx Instructions: each eye acetaminophen [Tylenol Extra Strength] 500 mg Tablet 1,000 mg PO Q6H PRN (Reason: Pain) Discharge Orders: Discharge ED (Routine); Ordered 08/27/23 Ordered By: Valente Orona Referrals: Madhu Felder MD [Primary Care Provider] - Discharge Diet: Usual diet Discharge Activity: Increase activity as tolerated Patient Instructions: Chest Wall Pain (ED) Activity Restrictions/Additional Instructions: Activity as tolerated. Drink plenty of water and fluids. Use acetaminophen and/or ibuprofen to help with pain. Use ice or heat for further pain relief. Follow-up with primary care in 3 to 5 days for recheck. Return to ER for worsening symptoms such as increased shortness of breath, fever greater than 100.4, or new concerns. Coding Level of Care Code ED Surveyor Instrument Assistant for José Miguel Butcher
--- NOTE | 2023-08-27 17:16 | XRR_ITS ---
PROCEDURE INFORMATION: Exam: XR Left Ribs with PA Chest Exam date and time: 08/27/2023 6:10 PM Age: 68 years old Clinical indication: Pain; Other: Left ribs; Additional info: Pain, injury TECHNIQUE: Imaging protocol: Radiologic exam of the left ribs with PA chest. Views: 3 views COMPARISON: CT chest con [id number] 06/24/2022 2:36 PM FINDINGS: Lungs: No consolidation. Pleural spaces: No pleural effusion. No pneumothorax. Heart/Mediastinum: Mild cardiomegaly. Bones/joints: No evidence of rib fracture. XR/XR ribs LT mn 3V w CXR1V [id number] IMPRESSION: No acute findings.
[2023-08-27 19:07] VITALS: RESP 18
== END 2023-08-27 19:08 | disposition home or self-care (01) ==
PROVIDERS: Emergency Medicine; Emergency Provider Nurse Practitioner Family; PCP Family Medicine Adult Medicine
DX: S29.011A Strain of muscle and tendon of front wall of thorax, initial encounter (principal); Z79.84 Long term (current) use of oral hypoglycemic drugs; I10 Essential (primary) hypertension; E11.9 Type 2 diabetes mellitus without complications; X50.1XXA Overexertion from prolonged static or awkward postures, initial encounter
CPT/HCPCS: 36415; 71101; 80053; 83690; 85025; 99284

== ENCOUNTER 2023-09-04 11:20 | Outpatient (CLI) | payer MEDICARE, SELFPAY ==
--- NOTE | 2023-09-04 11:30 | MM_ITS ---
WS: [id number] BILATERAL SCREENING DIGITAL TOMOSYNTHESIS MAMMOGRAM WITH CAD HISTORY: screening COMPARISON: 06/03/2022, 06/04/2021 Bilateral CC and MLO views with tomosynthesis and synthetic mammography submitted. Computer aided det ection analyzed. Breast composition: There are scattered areas of fibroglandular density. No suspicious masses, microc alcifications or architectural distortion. Numerous benign bilateral calcifications within each breas t. MM/[place] [id number] IMPRESSION: BI-RADS: 2-Benign FOLLOW UP: 1 Year Follow-up
== END 2023-09-04 11:21 | disposition home or self-care (01) ==
LOC: RAD 11:20
PROVIDERS: PCP Family Medicine Adult Medicine; Visit Provider Family Medicine Adult Medicine
DX: Z12.31 Encounter for screening mammogram for malignant neoplasm of breast (principal); R92.323 Mammographic fibroglandular density, bilateral breasts; R92.1 Mammographic calcification found on diagnostic imaging of breast
CPT/HCPCS: 77063; 77067

== ENCOUNTER 2023-10-22 11:02 | Day surgery (SDC) | payer MEDICARE, SELFPAY ==
--- NOTE | 2023-10-22 11:41 | P.ANESASSM_ITS ---
Pre-Anesthetic Assessment Height/Weight: Height 1.57 m Operation Date: 10/22/23 11:30 Proposed Procedures p EGD 09236, 73714, G0105,Z80.0, K92.1, R10.9, K59.04, Z86.010(Not Applicable) - DO jennifer Jorge Colonoscopy(Not Applicable) - Marty Freeman DO Familial anesthetic complications: None Was Beta Raúl taken within 24 hours: N/A Was Clonidine taken within 24 hours: N/A Social No alcohol and No tobacco Exam alert, oriented x 3, clear to auscultation bilaterally and regular rate & rhythm Airway Submandibular: within normal limits Cervical ROM: within normal limits Mallampati: Class II Dentition: full History/ROS No significant history except as noted and No significant complaints Pulmonary Exertional Dyspnea CV/HEM Hypertension CONCLUSIONS LV systolic function is normal with EF 55 to 60% Grade 1 diastolic dysfunction Left atrial dilation Mild mitral regurgitation Mild tricuspid regurgitation Mild pulmonary hypertension No comparison studies are available. Urinary Tract Infection Hx kidney stones Hepatic None reported GI None reported Metabolic Diabetes Mellitus, Hyperlipidemia, Morbid Obesity and Thyroid Disease Musc/skel Lower Back Pain, Osteoarthritis/DJD and Rheumatoid Arthritis Neuropsych Neuropathy Anesthetic Plan ASA status: 3 Anesthesia: Anesthesia Evaluation, General and MAC Risk of > 500 ml blood loss (7ml/kg in children): No Medications/Allergies Home Medications Medication Instructions Recorded Confirmed Last Taken Type One touch mini test strips #100 ea 03/14/22 08/25/23 Unknown Rx walkerwith seat-wheels adjust #1 ea 01/31/23 08/25/23 Unknown Rx height TLSO BRACE #1 ea 02/25/23 08/25/23 Unknown Rx naproxen 500 mg tablet (Naprosyn) 500 mg PO BID PRN pain #60 tabs 05/14/23 10/22/23 Unknown Rx latanoprost 0.005 % eye drops 1 drp ophthalmic (eye) BEDTIME eye 06/16/23 10/22/23 10/21/23 Rx drops #7.5 mL Diabetic shoes #1 ea 07/01/23 08/25/23 Unknown Rx levothyroxine 100 mcg tablet 100 mcg PO QAM Hypothyroidism #90 10/07/23 10/22/23 10/20/23 Rx tabs ascorbic acid (vitamin C) 500 mg 500 mg PO DAILY 09/11/0310/22/23 10/20/23 History tablet (Vitamin C) cyanocobalamin (vitamin B-12) 1,000 mcg PO DAILY 10/20/23 10/22/23 10/20/23 History 1,000 mcg tablet (Vitamin B-12) methenamine hippurate 1 gram tablet 1 g PO BID PRN Recurrent UTI 10/20/23 10/22/23 10/20/23 History metoclopramide HCl 10 mg tablet 10 mg PO QID PRN nausea and 10/20/23 10/22/23 Unknown History (Reglan) vomiting Allergies Allergy/AdvReac Type Severity Reaction Status Date / Time ibuprofen [From Motrin] Allergy Mild SOB Verified 08/27/23 15:28 [facility] Anesthesia Medical History (Updated 10/03/23 @ 16:10 by Madhu Felder MD) Family history of colon cancer History of colon polyps Colonoscopy on 09/18/[address] Cronin with polyps removed Diabetic gastroparesis associated with type 2 diabetes mellitus Mixed stress and urge urinary incontinence Multiple falls Nondisp fracture of first right metatarsal bone with delayed healing Anxiety with depression Glaucoma Urolithiasis Frequent headaches Obstructive pyelonephritis Obesity (BMI 30-39.9) Restrictive lung disease secondary to obesity Hypothyroidism Essential hypertension High cholesterol Diabetes mellitus Diverticulosis large intestine w/o perforation or abscess w/bleeding Surgical History S/P trigger finger release 10/05/3031 Hand Lt [address]th [address] Michelle History of total right knee replacement Rt knee contracture S/P ureteral stent placement History of laparoscopic cholecystectomy History of carpal tunnel surgery H/O tubal ligation Family History Father , at age 66 Cancer Colon Mother No problems noted. Other Diabetes Social History Smoking and tobacco/nicotine status: never used tobacco/nicotine Alcohol intake: never Marital status: Current occupational status: retired Female Reproductive History Para: 4 Spontaneous abortions: No Data Anesthesia Cardiac Studies: Echocardiogram 06/24/22
[2023-10-22 11:46] VITALS: BP 131/67; PULSE 67; RESP 17; TEMP 36.4; O2SAT 95; BMI 37.3
[2023-10-22] MEDS: sodium chloride 0.9% 1,000 ML 30 ML IV (11:46)
--- NOTE | 2023-10-22 12:23 | PM.HP ---
Providers/Chief Complaint Primary Care Provider: Madhu Felder MD Chief Complaint: Z12.11 History of Present Illness Jenny Lopez is a 68 year old female Review of Systems General: Reports: 10 or more systems reviewed and unremarkable except in HPI and below Medications/Allergies Home Medications Medication Instructions Recorded Confirmed Last Taken Type One touch mini test strips #100 ea 03/14/22 08/25/23 Unknown Rx walkerwith seat-wheels adjust #1 ea 01/31/23 08/25/23 Unknown Rx height TLSO BRACE #1 ea 02/25/23 08/25/23 Unknown Rx naproxen 500 mg tablet (Naprosyn) 500 mg PO BID PRN pain #60 tabs 05/14/23 10/22/23 Unknown Rx latanoprost 0.005 % eye drops 1 drp ophthalmic (eye) BEDTIME eye 06/16/23 10/22/23 10/21/23 Rx drops #7.5 mL Diabetic shoes #1 ea 07/01/23 08/25/23 Unknown Rx levothyroxine 100 mcg tablet 100 mcg PO QAM Hypothyroidism #90 10/07/23 10/22/23 10/20/23 Rx tabs ascorbic acid (vitamin C) 500 mg 500 mg PO DAILY 10/20/23 10/22/23 10/20/23 History tablet (Vitamin C) cyanocobalamin (vitamin B-12) 1,000 mcg PO DAILY 10/20/23 10/22/23 10/20/23 History 1,000 mcg tablet (Vitamin B-12) methenamine hippurate 1 gram tablet 1 g PO BID PRN Recurrent UTI 10/20/23 10/22/23 10/20/23 History metoclopramide HCl 10 mg tablet 10 mg PO QID PRN nausea and 10/20/23 10/22/23 Unknown History (Reglan) vomiting Allergies Allergy/AdvReac Type Severity Reaction Status Date / Time ibuprofen [From Motrin] Allergy Mild SOB Verified 08/27/23 15:28 PFSH Acute PFSH: Medical History (Updated 10/03/23 @ 16:10 by Madhu Felder MD) Family history of colon cancer History of colon polyps Colonoscopy on 09/18/[address] Cronin with polyps removed Diabetic gastroparesis associated with type 2 diabetes mellitus Mixed stress and urge urinary incontinence Multiple falls Nondisp fracture of first right metatarsal bone with delayed healing Anxiety with depression Glaucoma Urolithiasis Frequent headaches Obstructive pyelonephritis Obesity (BMI 30-39.9) Restrictive lung disease secondary to obesity Hypothyroidism Essential hypertension High cholesterol Diabetes mellitus Diverticulosis large intestine w/o perforation or abscess w/bleeding Surgical History S/P trigger finger release 10/05/3031 Hand Lt [address] Michelle History of total right knee replacement Rt knee contracture S/P ureteral stent placement History of laparoscopic cholecystectomy History of carpal tunnel surgery H/O tubal ligation Family History Father , at age 66 Cancer Colon Mother No problems noted. Other Diabetes Social History Smoking and tobacco/nicotine status: never used tobacco/nicotine Alcohol intake: never Marital status: Current occupational status: retired Female Reproductive History: Para: 4 Spontaneous abortions: No Vitals/I&O/Wt Last Vital Signs Temp 97.6 F 10/22/23 11:46 Pulse 67 10/22/23 11:46 Resp 17 10/22/23 11:46 BP 131/67 10/22/23 11:46 Pulse Ox 95 10/22/23 11:46 O2 Del Method Room Air 10/22/23 11:46 Weight last 48 hrs Weight 204 lb A&P Assessment and plan (1) Hematochezia: (2) Abdominal pain: Qualifiers: Abdominal location: lower abdomen, unspecified Qualified Code(s): R10.30 - Lower abdominal pain, unspecified (3) History of colon polyps: Plan EGD and colonoscopy Attestations Medical Necessity Statement*: Home Coding Level of Care Code Acute Code for Chg Fwd Diagnoses Hematochezia K92.1 Lower abdominal pain R10.30 Abdominal location: lower abdomen, unspecified History of colon polyps Z86.010
[2023-10-22 12:47] VITALS: BP 108/56; PULSE 70; RESP 14; TEMP 36.1; O2SAT 97
[2023-10-22 12:52] VITALS: BP 103/71; PULSE 78; RESP 16; O2SAT 94
[2023-10-22 12:58] VITALS: BP 123/68; PULSE 76; RESP 16; O2SAT 96
--- NOTE | 2023-10-22 13:15 | ANE.PACU2 ---
Inpatient post-anesthesia follow up: Airway intact: Yes Vital signs: Temperature 97 F Pulse Rate 76 Respiratory Rate 16 Blood Pressure 123/68 Pulse Oximetry 96 Oxygen Delivery Me thod Room Air Oxygen Flow Rate Fraction of Inspir ed Oxygen Hydration adequate: Yes Nausea and vomiting: No Pain level: 1 Mental status: Baseline
== END 2023-10-22 13:14 | disposition home or self-care (01) ==
PROVIDERS: PCP Family Medicine Adult Medicine; Visit Provider Surgery
PROC: 0DJ08ZZ Inspection of Upper Intestinal Tract, Via Natural or Artificial Opening Endoscopic (ICD-10-PCS; CPT 43235; principal; 2023-10-22 11:30)
PROC: 0DJD8ZZ Inspection of Lower Intestinal Tract, Via Natural or Artificial Opening Endoscopic (ICD-10-PCS; CPT 45378; 2023-10-22 11:30)
DX: K92.1 Melena (principal); K29.50 Unspecified chronic gastritis without bleeding; Z86.010 Personal history of colon polyps; E66.01 Morbid (severe) obesity due to excess calories; Z68.37 Body mass index [BMI] 37.0-37.9, adult; E03.9 Hypothyroidism, unspecified; I10 Essential (primary) hypertension; E11.9 Type 2 diabetes mellitus without complications
CPT/HCPCS: 43239; 45378; 88305; 88342; J2704; J7030

== ENCOUNTER → 2023-11-06 11:15 | Outpatient (BNVA) | payer MEDICARE, SELFPAY | PROVIDERS: PCP Family Medicine Adult Medicine; Visit Provider Surgery | DX: K21.9 Gastro-esophageal reflux disease without esophagitis (principal); K59.04 Chronic idiopathic constipation | CPT/HCPCS: 99214 ==

== ENCOUNTER → 2023-12-30 10:49 | Outpatient (BNVA) | payer MEDICARE, SELFPAY | PROVIDERS: PCP Family Medicine Adult Medicine; Visit Provider Podiatrist Foot & Ankle Surgery | DX: I73.9 Peripheral vascular disease, unspecified (principal); M21.41 Flat foot [pes planus] (acquired), right foot; M21.42 Flat foot [pes planus] (acquired), left foot; M20.41 Other hammer toe(s) (acquired), right foot; M20.42 Other hammer toe(s) (acquired), left foot; E11.42 Type 2 diabetes mellitus with diabetic polyneuropathy; L60.3 Nail dystrophy | CPT/HCPCS: 99213 ==

== ENCOUNTER → 2024-01-16 15:36 | Outpatient (BNVA) | payer MEDICARE, SELFPAY | PROVIDERS: PCP Family Medicine Adult Medicine; Visit Provider Nurse Practitioner Family | DX: R39.9 Unspecified symptoms and signs involving the genitourinary system (principal) | CPT/HCPCS: 81000 ==

== ENCOUNTER → 2024-02-18 09:46 | Outpatient (BNVA) | payer OTHER, SELFPAY | PROVIDERS: PCP Family Medicine; Visit Provider Family Medicine | DX: E03.9 Hypothyroidism, unspecified (principal); E11.43 Type 2 diabetes mellitus with diabetic autonomic (poly)neuropathy; K31.84 Gastroparesis | CPT/HCPCS: 80053; 83036; 84439; 84443; 85025 ==

== ENCOUNTER 2024-03-03 07:28 | Outpatient (CLI) | payer OTHER, SELFPAY ==
--- NOTE | 2024-03-03 07:15 | MR_ITS ---
WS: [id number] MRI LUMBAR SPINE NONCONTRAST TECHNIQUE: Sagittal T1, T2 and STIR imaging. Axial T1 and T2 imaging. CLINICAL INFORMATION: M54.16 - Radiculopathy, lumbar region COMPARISON: None. FINDINGS: Mild lumbar curve. No acute compression. Chronic anterior wedging L1 vertebral body. Disc bulging wor se at L2-L4. 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 L1-L2: Mild disc bulging with narrowing RIGHT subarticular recess. Mild RIGHT and no significant LEFT foraminal narrowing. Mild facet arthropathy. L2-L3: Mild disc bulging with moderate narrowing of the thecal sac. Moderate facet arthropathy. Narro wing of the subarticular recess bilaterally. Mild RIGHT greater than LEFT foraminal narrowing. L3-L4: Mild disc bulging with moderate to severe central canal stenosis. Narrowing of the subarticula r recess bilaterally. Moderate facet arthropathy with ligamentum flavum hypertrophy. Mild RIGHT great er than LEFT foraminal narrowing. L4-L5: Mild disc bulging in combination with facet arthropathy and ligamentum flavum hypertrophy resu lts in moderate to severe central canal stenosis. Mild RIGHT foraminal narrowing. Impingement subarti cular recess. L5-S1: Mild annular bulging. Slight impingement on the traversing RIGHT S1 nerve root. Moderate facet arthropathy. Foramen are patent. Visualized pelvic bony structures: Normal. Paravertebral soft tissues: Normal. RIGHT renal cyst. RIGHT hydronephrosis similar to CT 06/21/2022 Small disc protrusions in the lower thoracic spine at T8-T9 and T9-T10 with slight contact of the tho racic cord. Smaller disc protrusions T10-11 and T11-12. MR/MR lumbar spine wo con* [id number] IMPRESSION: 1. Mild lumbar curve. Chronic compression with anterior wedging at L1. 2. 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 3. Moderate central canal stenosis L2-L3. Moderate to severe central canal shane nosis L3-L4 and L4-L5 worse at L4-L5. 4. Mild RIGHT L1-L2, RIGHT L2-3, RIGHT L3-4, and RIGHT L4-5 foraminal narrowin g. 5. Disc bulging L5-S1 impinges the traversing RIGHT S1 nerve root in the subar ticular recess. 6. Moderate to advanced facet arthropathy L5-S1. 7. Small central protrusions in the lower thoracic spine described above. 8. RIGHT hydronephrosis similar to the prior CT 06/21/2022 partially visualized
== END 2024-03-03 07:29 | disposition home or self-care (01) ==
LOC: RAD 07:31
PROVIDERS: PCP Family Medicine; Visit Provider Anesthesiology Pain Medicine
DX: M54.16 Radiculopathy, lumbar region (principal); M43.8X6 Other specified deforming dorsopathies, lumbar region; M48.061 Spinal stenosis, lumbar region without neurogenic claudication; M51.369 Other intervertebral disc degeneration, lumbar region without mention of lumbar back pain or lower extremity pain; M47.897 Other spondylosis, lumbosacral region; N13.30 Unspecified hydronephrosis; M48.56XA Collapsed vertebra, not elsewhere classified, lumbar region, initial encounter for fracture; R93.89 Abnormal findings on diagnostic imaging of other specified body structures; M51.379 Other intervertebral disc degeneration, lumbosacral region without mention of lumbar back pain or lower extremity pain; N28.1 Cyst of kidney, acquired; M51.24 Other intervertebral disc displacement, thoracic region
CPT/HCPCS: 72148

== ENCOUNTER 2024-03-10 08:21 | Outpatient (RCR) | payer OTHER, SELFPAY | END 2024-03-12 23:59 | disposition home or self-care (01) | LOC: SPT 08:21 | PROVIDERS: PCP Family Medicine; Visit Provider Anesthesiology Pain Medicine | DX: M54.50 Low back pain, unspecified (principal); M62.81 Muscle weakness (generalized) | CPT/HCPCS: 97161 ==

== ENCOUNTER 2024-03-13 06:30 | Outpatient (RCR) | payer OTHER, SELFPAY | END 2024-04-09 23:59 | disposition home or self-care (01) | LOC: SPT 06:30 | PROVIDERS: PCP Family Medicine; Visit Provider Anesthesiology Pain Medicine | DX: M47.816 Spondylosis without myelopathy or radiculopathy, lumbar region (principal) | CPT/HCPCS: 97110 ==

== ENCOUNTER → 2024-03-24 10:11 | Outpatient (BNVA) | payer OTHER, SELFPAY | PROVIDERS: PCP Family Medicine | DX: I51.7 Cardiomegaly (principal) | CPT/HCPCS: 71046 ==

== ENCOUNTER 2024-04-10 06:00 | Outpatient (RCR) | payer OTHER, SELFPAY | END 2024-05-10 23:59 | disposition home or self-care (01) | LOC: SPT 06:00 | PROVIDERS: PCP Family Medicine; Visit Provider Anesthesiology Pain Medicine | DX: M47.816 Spondylosis without myelopathy or radiculopathy, lumbar region (principal) | CPT/HCPCS: 97110 ==

== ENCOUNTER → 2024-04-30 16:06 | Outpatient (BNVA) | payer OTHER, SELFPAY | PROVIDERS: PCP Family Medicine; Visit Provider Obstetrics & Gynecology | DX: Z12.4 Encounter for screening for malignant neoplasm of cervix (principal) | CPT/HCPCS: 87624 ==

== ENCOUNTER 2024-05-11 05:32 | Outpatient (RCR) | payer MEDICARE, SELFPAY | END 2024-06-09 23:59 | disposition home or self-care (01) | LOC: SPT 05:32 | PROVIDERS: PCP Family Medicine; Visit Provider Anesthesiology Pain Medicine | DX: M47.816 Spondylosis without myelopathy or radiculopathy, lumbar region (principal) | CPT/HCPCS: 97110 ==

== ENCOUNTER 2024-06-10 05:00 | Outpatient (RCR) | payer MEDICARE, SELFPAY | END 2024-07-08 13:57 | disposition home or self-care (01) | LOC: SPT 05:00 | PROVIDERS: PCP Family Medicine; Visit Provider Anesthesiology Pain Medicine | DX: M47.816 Spondylosis without myelopathy or radiculopathy, lumbar region (principal) | CPT/HCPCS: 97110 ==

== ENCOUNTER 2024-06-21 15:16 | Outpatient (CLI) | payer MEDICARE, SELFPAY ==
--- NOTE | 2024-06-21 15:28 | XR_ITS ---
WS: [id number] Exam: XR pelvis 1-2V* [id number] Date/Time of Exam: 06/21/2024 3:39 PM Reason For Exam: fall off low stool No acute fracture. Moderate DJD of both hips. Soft tissues are unremarkable. XR/XR pelvis 1-2V* [id number] IMPRESSION: 1. No pelvic fracture.
== END 2024-06-21 15:17 | disposition home or self-care (01) ==
PROVIDERS: PCP Family Medicine; Visit Provider Emergency Medicine
DX: M53.3 Sacrococcygeal disorders, not elsewhere classified (principal); M16.0 Bilateral primary osteoarthritis of hip; W08.XXXA Fall from other furniture, initial encounter
CPT/HCPCS: 72170

== ENCOUNTER → 2024-06-29 10:47 | Outpatient (BNVA) | payer MEDICARE, SELFPAY | PROVIDERS: PCP Family Medicine; Visit Provider Podiatrist Foot & Ankle Surgery | DX: E11.42 Type 2 diabetes mellitus with diabetic polyneuropathy (principal); L60.3 Nail dystrophy; E11.8 Type 2 diabetes mellitus with unspecified complications; I73.9 Peripheral vascular disease, unspecified; M21.41 Flat foot [pes planus] (acquired), right foot; M21.42 Flat foot [pes planus] (acquired), left foot; M20.41 Other hammer toe(s) (acquired), right foot; M20.42 Other hammer toe(s) (acquired), left foot; Z79.84 Long term (current) use of oral hypoglycemic drugs | CPT/HCPCS: 11721 ==

== ENCOUNTER → 2024-09-27 13:55 | Outpatient (BNVA) | payer MEDICARE, SELFPAY | PROVIDERS: PCP Family Medicine; Visit Provider Specialist | DX: M25.561 Pain in right knee (principal); Z96.651 Presence of right artificial knee joint; G89.29 Other chronic pain | CPT/HCPCS: 73560; 73565; 99205 ==

== ENCOUNTER → 2024-09-28 10:56 | Outpatient (BNVA) | payer MEDICARE, SELFPAY | PROVIDERS: PCP Family Medicine; Visit Provider Podiatrist Foot & Ankle Surgery | DX: E11.8 Type 2 diabetes mellitus with unspecified complications (principal); L60.3 Nail dystrophy; I73.9 Peripheral vascular disease, unspecified; M21.41 Flat foot [pes planus] (acquired), right foot; M21.42 Flat foot [pes planus] (acquired), left foot; M20.41 Other hammer toe(s) (acquired), right foot; M20.42 Other hammer toe(s) (acquired), left foot; E11.42 Type 2 diabetes mellitus with diabetic polyneuropathy | CPT/HCPCS: 11721 ==

== ENCOUNTER 2024-11-12 13:25 | Outpatient (CLI) | payer MEDICARE, SELFPAY ==
--- NOTE | 2024-11-12 13:36 | USCV_ITS ---
Jenny Lopez Age: 69 Gender: F : 1955 Exam Date: 11/12/2024 13:46 Ordering Phys: Karri Aguilar MD Technologist: PADMINI Exam Location: [facility] – [place] Indication: Dyspnea on Exertion BP: 122 / 82 HR: 60 Rhythm: Sinus Technical Quality: Adequate MEASUREMENTS (Male / Female) Normal Values 2D ECHO LV Diastolic Diameter PLAX 4.5 cm 4.2 - 5.9 / 3.9 - 5.3 cm IVS Diastolic Thickness 1.3 cm 0.6 - 1.0 / 0.6 - 0.9 cm IVS Systolic Thickness 2.0 cm LVPW Diastolic Thickness 1.6 cm 0.6 - 1.0 / 0.6 - 0.9 cm LVPW Systolic Thickness 1.8 cm LVOT Diameter 2.0 cm LV Ejection Fraction 2D Teich 53.8 % LV Ejection Fraction MOD 4C 59.5 % LV Ejection Fraction MOD 2C 54.7 % LV Ejection Fraction 2C AL 58.3 % LA Diameter 4.9 cm RA Systolic Volume 4C AL 37.3 ml RA Systolic Volume 4C MOD 32.8 ml LA Sys Volume AL 53.9 cm cubed LA Sys Volume Index AL 26.2 cm cubed/m squared Aorta at Sinotubular Diameter 2.3 cm M-MODE LA Ao Ratio MM 1.8 AV Cusp Separation MM 2.0 cm DOPPLER AV Peak Velocity 127.0 cm/s LVOT Peak Velocity 61.0 cm/s AV Area Cont Eq vti 1.4 cm squared AV Area Cont Eq pk 1.5 cm squared MV Peak Velocity 79.0 cm/s MV Area PHT 3.1 cm squared Mitral E to A Ratio 1.1 TV Peak Velocity 171.5 cm/s TR Peak Velocity 229.0 cm/s TR Peak Gradient 21.0 mmHg TV Peak E Velocity 59.0 cm/s PV Peak Velocity 85.0 cm/s FINDINGS Left Ventricle Normal left ventricular size and systolic function, EF 55%.no regional wall motion abnormalities. Mild left ventricular hypertrophy. Grade I/IV diastolic dysfunction (abnormal relaxation filling pattern), normal to mildly elevated filling pressures. Right Ventricle Normal right ventricular size and systolic function. Right Atrium Normal right atrial size. Left Atrium Normal left atrial size. IA Septum Normal appearance of the interatrial septum. Mitral Valve Mild mitral annular calcification. Aortic Valve No gross abnormalities noted Tricuspid Valve Trace tricuspid valve regurgitation. Estimated pulmonary artery peak systolic pressure 24 mmHg Pulmonic Valve Pulmonic valve not well visualized. Pericardium No pericardial effusion. Aorta Normal aortic annulus size. IVC Inferior vena cava not visualized. CONCLUSIONS Normal left ventricular size and systolic function, EF 55%.no regional wall motion abnormalities. Mild left ventricular hypertrophy. Grade I/IV diastolic dysfunction (abnormal relaxation filling pattern), normal to mildly elevated filling pressures. Mild mitral annular calcification. Trace tricuspid valve regurgitation. Estimated pulmonary artery peak systolic pressure 24 mmHg. There is no pericardial effusion. Compared to the study from 06/24/2022, there may not be a No TIAs or amaurosis significant change Dr Estephanie Fiore MD FAC (Electronically Signed) Final Date: 14 November 2024 19:08 S
== END 2024-11-12 13:26 | disposition home or self-care (01) ==
LOC: RAD 13:27
PROVIDERS: PCP Family Medicine; Visit Provider Family Medicine
DX: R06.09 Other forms of dyspnea (principal); I51.89 Other ill-defined heart diseases; I51.7 Cardiomegaly; I34.89 Other nonrheumatic mitral valve disorders
CPT/HCPCS: 93306

== ENCOUNTER → 2024-11-29 15:50 | Outpatient (BNVA) | payer MEDICARE, SELFPAY | PROVIDERS: PCP Family Medicine; Visit Provider Internal Medicine | DX: J98.6 Disorders of diaphragm (principal); J84.10 Pulmonary fibrosis, unspecified; R94.2 Abnormal results of pulmonary function studies; Z99.89 Dependence on other enabling machines and devices; Z87.891 Personal history of nicotine dependence; J44.1 Chronic obstructive pulmonary disease with (acute) exacerbation; J44.9 Chronic obstructive pulmonary disease, unspecified | CPT/HCPCS: 99204; Q3014 ==

== ENCOUNTER → 2025-01-10 10:48 | Outpatient (BNVA) | payer MEDICARE, SELFPAY | PROVIDERS: PCP Family Medicine; Visit Provider Podiatrist Foot & Ankle Surgery | DX: E11.42 Type 2 diabetes mellitus with diabetic polyneuropathy (principal); L60.3 Nail dystrophy; E11.8 Type 2 diabetes mellitus with unspecified complications; I73.9 Peripheral vascular disease, unspecified; M21.41 Flat foot [pes planus] (acquired), right foot; M21.42 Flat foot [pes planus] (acquired), left foot; M20.41 Other hammer toe(s) (acquired), right foot; M20.42 Other hammer toe(s) (acquired), left foot | CPT/HCPCS: 11721 ==

== ENCOUNTER 2025-01-12 07:21 | Outpatient (CLI) | payer MEDICARE, SELFPAY ==
[2025-01-12 07:50] VITALS: PULSE 67; RESP 18; O2SAT 96
== END 2025-01-12 07:22 | disposition home or self-care (01) ==
LOC: RT 07:22
PROVIDERS: PCP Family Medicine; Visit Provider Internal Medicine
DX: J44.1 Chronic obstructive pulmonary disease with (acute) exacerbation (principal); R94.2 Abnormal results of pulmonary function studies
CPT/HCPCS: 94060; 94618; 94726; 94729; J7613